=== PATIENT | male | born 1985 | race Caucasian/White ===

== ENCOUNTER 2019-03-21 20:30 | Inpatient (IN) | payer SELFPAY | END 2019-03-24 13:34 | disposition home or self-care (01) | DRG 897 | PROVIDERS: Emergency Provider Emergency Medicine | DX: F15.229 Other stimulant dependence with intoxication, unspecified (principal); F33.0 Major depressive disorder, recurrent, mild; R45.851 Suicidal ideations; Z28.21 Immunization not carried out because of patient refusal; F17.210 Nicotine dependence, cigarettes, uncomplicated ==

== ENCOUNTER 2019-07-25 21:57 | Inpatient (IN) | payer SELFPAY ==
[2019-07-25 22:03] VITALS: BP 115/74; PULSE 118; RESP 18; TEMP 36.7; O2SAT 98; BMI 30.9
--- NOTE | 2019-07-25 22:23 | ED_ITS ---
HPI - Psych General: Chief Complaint: Psychiatric Symptoms Stated Complaint: si/intoxication History of Present Illness: HPI Narrative: Patient arrived via the police due to having suicidal thoughts and hallucinating. Patient is a chronic meth abuser and he did meth last night and has had problems since then. Said he has no reason to live because he can lose his job due to his meth use and if he did not have a job he did not want live. Patient states the night before last he put a bottle of trazodone in his mouth and try to sadia with bleach and cannot hold down spit it out. Has been in the hospital for 4 suicidal thoughts. Has been off his medications for a while. MD complaint: suicidal ideation, feels depressed and altered mental status Onset (ago): day(s) Duration: constant History of same: Yes Relieving factors: none Context: recent drug abuse and not taking psychiatric medications Associated psychiatric symptoms: depression, suicidal ideation, auditory hallucinations and visual hallucinations Associated symptoms: Reports auditory hallucinations, visual hallucinations, depression and suicidal ideation Treatments prior to arrival: other (Please brought him in and he called the police because he was having thoughts of harming himself please did fill out a 96-hour hold) If self harm: admits thoughts of self harm, has plan and has acted on plan Details of plan: He took trazodone and then drink bleach but had to spit it out Review of Systems Const: Denies: fever, chills or body aches Eyes: Denies: change in vision or blurry vision ENMT: Denies: throat pain or nasal congestion Card: Denies: chest pain or shortness of breath on exertion Resp: Denies: shortness of breath, productive cough or non-productive cough GI: Denies: abdominal pain, nausea or vomiting : Denies: difficulty urinating Musc: Denies: extremity pain Skin/Breast: Denies: rash Neuro: Denies: headache Psych: Reports: depression, hopelessness, visual hallucinations, auditory hallucinations and suicidal ideation; Denies: anxiety Thomas/Lymph: Denies: easy bruising PFSH ED PFSH: Social History Smoking and tobacco status: current every day smoker Physical Exam Const: COMMON NORMALS: no apparent distress, average body habitus and oriented x3 HENMT: COMMON NORMALS: normocephalic HEAD & SCALP: normal to inspection and normocephalic FACE & SINUS: normal facial exam Eye: COMMON NORMALS: conjunctivae normal GENERAL EYE: normal appearance of both eyes CONJUNCTIVA: Yes conjunctivae normal Neck/C-Spine: COMMON NORMALS: no JVD Chest: COMMONS NORMALS: inspection of chest normal Resp: COMMON NORMALS: normal respiratory effort and clear to auscultation bilaterally AUSCULTATION: clear to auscultation bilaterally Cardio: COMMON NORMALS: no JVD, regular rate and regular rhythm RATE: regular rate RHYTHM: regular rhythm GI: COMMON NORMALS: normal to inspection, nondistended, normoactive bowel sounds Extremity: COMMON NORMALS: normal to inspection and full ROM Neuro: COMMON NORMALS: oriented x3 Psych: APPEARANCE: Yes disheveled ATTITUDE: Yes paranoid SPEECH: Yes excessive MOOD & AFFECT: Yes elevated mood THOUGHT CONTENT: Yes suicidality MDM - Psych MDM Narrative: Medical decision making narrative: Discussed case with Dr. Andujar and Dr. Whatley decision to admit at 0116. Lab Data: Labs: Lab Results 07/25/19 07/25/19 Range/Units 23:45 23:45 WBC 9.4 (4.0-10.0) 10^3/ uL RBC 4.80 (4.1-5.3) 10^6/u L Hgb 15.0 (11.7-16.6) g/dL Hct 42.8 (42.0-52.0) % MCV 89.2 (80-94) fL MCH 31.3 (28.0-34.0) pg MCHC 35.0 (30.0-36.0) g/dL RDW 12.2 (12.1-15.1) % Plt Count 286 (130-400) 10^3/c mm MPV 9.8 (7.4-10.4) fL Neut % (Auto) 60.2 % Lymph % (Auto) 29.9 % [place] % (Auto) 8.9 % Eos % (Auto) 0.5 % Baso % (Auto) 0.3 % Neut # (Auto) 5.7 (1.8-7.7) 10^3/u L Lymph # (Auto) 2.8 (0.8-4.8) 10^3/u L [place] # (Auto) 0.8 (0.2-0.9) 10^3/u L Eos # (Auto) 0.1 (0.0-0.8) 10^3/u L Baso # (Auto) 0.0 (0.0-0.1) 10^3/u L Nucleated RBC % (a uto) 0 % Nucleated RBCs # 0.0 /100WBC Sodium 140 (136-145) mmol/L Potassium 3.7 (3.5-5.1) mmol/L Chloride 103 (98-107) mmol/L Carbon Dioxide 27 (22-29) mmol/L Anion Gap 13.7 (5-19) BUN 20 (6-20) mg/dL Creatinine 1.5 H (0.7-1.2) mg/dL GFR Calculation 53.6 L (90-130) mL/min Glucose 107 (65-115) mg/dL Calculated Osmolal ity 287 (285-295) mOsm/k g Calcium 9.1 (8.5-10.5) mg/dL Total Bilirubin 0.8 (0.15-1.2) mg/dL AST 27 (0-40) U/L ALT 24 (0-41) U/L Alkaline Phosphata se 101 (40-130) IU/L Total Protein 6.5 L (6.6-8.7) g/dL Albumin 4.3 (3.5-5.2) g/dL Globulin 2.2 (1.3-4.6) g/dL Salicylates < 0.3 L (3-10) mg/dL Acetaminophen < 5.0 L (10-30) ug/mL Ethyl Alcohol < 10 (0-10) mg/dL Discharge Plan Discharge Patient Disposition: Admitted As Inpatient Clinical Impression: Suicidal ideation Condition: Stable Coding Level of Care Code ED Recovery Auditor for Paul Fwd Exam Comprehensive
[2019-07-25] MEDS: LORazepam 2 mg Tablet PO (22:36)
[2019-07-25] MEDS: haloperidol inj 5 mg/mL INJ 1 mL IM (22:36)
[2019-07-26] LABS: Basophils % 0.3 %; Eosinophils # 0.1 10^3/uL (0.0-0.8); Eosinophils % 0.5 %; Hematocrit 42.8 % (42.0-52.0); Lymphocytes # 2.8 10^3/uL (0.8-4.8); Lymphocytes % 29.9 %; Mean Corpuscular Hemoglobin 31.3 pg (28.0-34.0); Mean Corpuscular Volume 89.2 fL (80-94); Mean Platelet Volume 9.8 fL (7.4-10.4); Monocytes # 0.8 10^3/uL (0.2-0.9); Monocytes % 8.9 %; Neutrophils # 5.7 10^3/uL (1.8-7.7); Neutrophils % 60.2 %; Nucleated Red Blood Cells % 0 %; Platelet Count 286 10^3/cmm (130-400); Red Cell Distribution Width 12.2 % (12.1-15.1); White Blood Count 9.4 10^3/uL (4.0-10.0)
[2019-07-26 00:14] LABS: Alanine Aminotransferase 24 U/L (0-41); Albumin Level 4.3 g/dL (3.5-5.2); Alkaline Phosphatase 101 IU/L (40-130); Anion Gap 13.7 (5-19); Aspartate Amino Transferase 27 U/L (0-40); Blood Urea Nitrogen 20 mg/dL (6-20); Calcium 9.1 mg/dL (8.5-10.5); Carbon Dioxide 27 mmol/L (22-29); Chloride 103 mmol/L (98-107); Globulin 2.2 g/dL (1.3-4.6); Glomerular Filtration Rate 53.6 mL/min (90-130); Glucose 107 mg/dL (65-115); Osmolality Calculated 287 mOsm/kg (285-295); Potassium 3.7 mmol/L (3.5-5.1); Sodium 140 mmol/L (136-145); Total Bilirubin 0.8 mg/dL (0.15-1.2); Total Protein 6.5 g/dL (6.6-8.7)
[2019-07-26 00:30] LABS: Acetaminophen < 5.0 ug/mL (10-30); Alcohol Level < 10 mg/dL (0-10); Salicylate < 0.3 mg/dL (3-10)
[2019-07-26 01:33] VITALS: RESP 18
[2019-07-26 01:42] VITALS: BP 120/75; PULSE 94; RESP 20; TEMP 36.9; O2SAT 97
[2019-07-26 06:00] VITALS: BP 121/71; PULSE 85; RESP 20; TEMP 36.8; O2SAT 98
--- NOTE | 2019-07-26 09:55 | P.HP_ITS ---
Providers/Chief Complaint Admitting Physician: Tomi Hoyos MD Chief Complaint: si/intoxication HPI NPU History of Present Illness Jeremiah Power is a 33 year old male The patient had a very rough day today. He was admitted to the unit from the emergency room secondary to suicidal thoughts, aggression, and addiction issues. He was unwilling to engage in an interview at any level, denied wanting anything, and was fairly knocked out, clearly crashing from methamphetamine high. During my brief conversation with him, he denied needing anything other than sleep, which is what he mostly did all of yesterday. I gave him some space but identified for him that we would need to have some kind of effective conversation in the morning. He was functioning fine on the prn medication that had been started. He did reluctantly allow me to review the information from his psychosocial reports from his last hospitalization, excerpts of which are included below. He denied any substantive changes at this time. Per last [facility] eval: History of Present Illness Date of Service: Mar 23, 2019 Chief Complaint: I've been doing a lot of mask. I just need to get cleaned up. HPI: History of present illness:Jeremiah Power is a 33-year-old man with a long history of methamphetamine abuse. He reports that he needs to come in and get clean he reported to the emergency room that he was having thoughts of hanging himself or injecting himself with antifreeze. However on interview in the psychiatric unit he states that that was primarily a complaint to get admitted to the psychiatric unit so that he could clean himself out. He's dated I've been high too long and freaking out and having suicidal thoughts. He has no intent of injuring himself or anyone else. He says this has happened before area and he said that he had been high for several days and had started hearing voices. Otherwise, he reports that things have been going well for him. He denied symptoms of depression. He denied the presence at the time of interview of suicidal or homicidal ideation. He is actively employed. Other than his meth amphetamine intoxication, he reports that he had been doing well. Item Value Date Time Urine Opiates Screen NEGATIVE ng/mL 03/21/192250 Urine Barbiturates Screen NEGATIVE ng/mL 03/21/192250 Urine Phencyclidine Screen NEGATIVE ng/mL 03/21/192250 Urine Amphetamines Screen POSITIVE ng/mL H 03/21/192250 Urine Benzodiazepines Screen NEGATIVE ng/mL 03/21/192250 Urine Cocaine Screen NEGATIVE ng/mL 03/21/192250 Urine Marijuana (THC) Screen NEGATIVE ng/mL 03/21/192250 Ethyl Alcohol Level < 10 mg/dL 03/21/192056 Mental health history: He has 3 prior hospitalizations. First was in 08/08/2017 for 3 days, second was 08/19/2017 for 3 days and again in February 2018 for 3 days. Each time, for methamphetamine. Discharge planning on at least 2 of those sent him to [facility] program. Historically, he has been variably compliant with outpatient treatment. His last visit to behavioral health services was in December 2018 with the following description: Client reports the following symptoms and concerns today: It's getting better. I am just stressed out on bills. I have been leaving them online girls alone. I haven't been sending them money. I haven't been really having any suicidal thoughts.I haven't had to use my safety plan. I have been to tired after work to think about anything. Probably last month I did, around the end of October when bills were due. I ended up burning my leg at work so I was out of work a couple of weeks. I think it was a chemical reaction. I have been at [facility] since May, it doesn't seem that long. I haven't had an relapses, patrick. I got ahold of some air duster. I just did it that once. I haven't been going to any meetings. Social history: Patient dropped out of school in eighth grade. He did get his GED. He is currently on probation for 5 years. Legal history: Legal history begins in 2008 with an arrest for stalking. In 2015 he was charged with second-degree felony assault. 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 He was also charged with possession of illegal substance and car theft. In 2018, immediately prior to his last psychiatric issues, he was charged with possession of illegal substance and counseling mandated by court order. Past medical history: Please see nursing notes in the emergency room chart. Mental Status Exam: Appearance: hygiene is fair; no gross neurological deficits., gait is unremarkable; AIMS=0 Speech: Speech is of normal rate and rhythm and easily understood. Thought processes: Thought processes are abstract. Judgment is not adequate for safety. Associations: intact Psychotic processes: There is no indication of guarding or paranoia. There is no attention to the internal stimuli. Auditory and visual hallucinations are denied. Judgment: Insight is fair. Problem solving skills are adequate for safety. Orientation: The patient is oriented to person, place time and situation. Memory: no deficits noted in immediate, intermediate, or remote spheres. Attention: The patient is alert and interpersonally engaged. Language: Verbalizations are coherent. Fund of knowledge: Fund of knowledge is adequate. Affect/Mood: Affect is irritable with a depressed mood. Denied suicidal ideation Affective range iappropriate. Psychosis: perception unimpaired except through cognitive distortion; reality testing intact. Diagnoses: amphetamine intoxication Amphetamine dependence Assessment: The patient is a fairly well-demonstrated pattern of becoming psychotic after using amphetamines leading to his hospitalization. His symptoms clear after 3 days of sobriety. Meds NPU Home Medications Medication Instructions Recorded Confirmed Last Taken Type Unable to Assess 07/27/19 07/27/19 Unknown History Allergies Allergy/AdvReac Type Severity Reaction Status Date / Time Penicillins Allergy Unknown Verified 07/25/19 22:18 PFS NPU PFSH: Social History Smoking and tobacco status: current every day smoker Mental Status Exam MSE Comments: This is an obese, white male, with adequate dress, limited grooming, and eye contact. No abnormal movements except for significant psychomotor retardation. Uncooperative with exam in no moderate distress. Speech was limited and decreased rate and volume. Mood described as depressed; affect congruent. Thought process, linear. Thought content: patient did not answer questions, for the most part did endorse having suicidality. There were no delusions reported. He did not appear to be attending to internal stimuli. Attention and concentration were impaired. Memory was unreliable but none were formally tested. He is alert and oriented to person and place. Insight and judgment are impaired. Vitals/I&O/Wt Last Vital Signs Temp 98.5 F 07/26/19 21:36 Pulse 88 07/26/19 21:36 Resp 20 H 07/26/19 21:36 BP 125/77 07/26/19 21:36 Pulse Ox 98 07/26/19 21:36 Weight last 48 hrs Weight 81.647 kg Data NPU : 07/25/19 23:45 07/25/19 23:45 A&P Assessment and plan (1) Suicidal ideation: This is a 33 year old, white male, with history of hospitalization in a very similar fashion on /, which ended very abruptly after him essentially not engaging and then asking to leave the next day. We will certainly attempt to engage him and address any mental health or addiction needs, and hopefully assist him in motivation towards improvement. Continue current medication. Will explore medication trials tomorrow. Will continue q 15-minute checks for safety. Will encourage individual and milieu therapy. Will work with social work to encourage sober living services at the highest level of care to which he is willing to commit. Status: Acute (2) Methamphetamine dependence: Status: Acute (3) Depressive disorder: Status: Acute Involuntary Hold Information 96 Hour Hold: 96 Hour Involuntary Admission: No Attestations NPU Medical Necessity Statement*: Inpatient hospitalization is medically necessary and the clinically appropriate intervention at this time. We will monitor medications and make adjustment in addition as indicated. He will be in the hospital for over two midnights. Likely length of stay two to four days. Coding Level of Care Code Acute Inbound Sales Consultant for Paul Small Diagnoses Suicidal ideation R45.851 Methamphetamine dependence F15.20 Depressive disorder F32.9
[2019-07-26 13:33] VITALS: BP 124/74; PULSE 88; RESP 18; TEMP 37; O2SAT 100
[2019-07-26] MEDS: trazodone 50 mg Tablet PO (20:41)
--- NOTE | 2019-07-26 21:35 | PC.NURSE ---
Pt given Prn Trazodone for sleep per pt request.
[2019-07-26 21:36] VITALS: BP 125/77; PULSE 88; RESP 20; TEMP 36.9; O2SAT 98
[2019-07-27 05:58] VITALS: BP 111/74; PULSE 84; RESP 20; TEMP 37.1; O2SAT 96
--- NOTE | 2019-07-27 11:44 | P.PN_ITS ---
Subjective NPU Subjective: Interval history: Jeremiah presents today reporting that he is not sure if he witnessed a crime or not, if he saw somebody get killed and all kinds of other bizarre utterances. He continues to be very guarded in interview and resistant to interactions. It is unclear whether this psychosis is something that is common to him or only when he has been binging on methamphetamine. We will examine that further. We discussed the risks, benefits and alternatives of initiating medication which he said he would consider, but currently struggling with basic reality. Mental Status Exam MSE Comments: This is an overweight, white male, with adequate dress, limited grooming, and eye contact. No abnormal movements except for psychomotor agitation mixed with psychomotor retardation. Uncooperative with exam still, in mild distress at times. Speech was limited but then at times increased rate and volume. Mood described as fine; affect irritable and energetic. Thought process, linear. Thought content: patient did not appear to have any outwardly or inwardly directed aggression. There were no delusions reported but clear paranoid, bizarre delusions noted. He did not appear to be attending to internal stimuli. Attention and concentration were impaired, and memory appeared unreli able, but none were formally tested. Alert and oriented times person and place. Insight and judgment are impaired. Vitals/I&O/Wt Last Vital Signs Temp 97.9 F 07/27/19 21:50 Pulse 82 07/27/19 21:50 Resp 17 07/27/19 21:50 BP 108/76 07/27/19 21:50 Pulse Ox 97 07/27/19 21:50 Data NPU : 07/25/19 23:45 07/25/19 23:45 A&P Additional A&P Information (1) Suicidal ideation: This is a 33 year old, white male, with history of hospitalization in a very similar fashion on /, which ended very abruptly after him essentially not engaging and then asking to leave the next day. We will certainly attempt to engage him and address any mental health or addiction needs, and hopefully assist him in motivation towards improvement. Continue current medication. Will explore medication trials tomorrow. Will continue q 15-minute checks for safety. Will encourage individual and milieu therapy. Will work with social work to encourage sober living services at the highest level of care to which he is willing to commit. (2) Methamphetamine dependence: (3) Depressive disorder: Involuntary Hold Information 96 Hour Hold: 96 Hour Involuntary Admission: No Attestations NPU Medical Necessity Statement*: Inpatient hospitalization is medically necessary and the clinically appropriate intervention at this time. We will monitor medications and make adjustment in addition as indicated. Likely length of stay two to four days. Coding Level of Care Code Acute Fiscal Agent for Paul Small
[2019-07-27 12:43] LABS: Add Urine Microscopic? NO
[2019-07-27 12:48] LABS: Bilirubin Urine Neg (NEGATIVE); Blood Urine Neg (Negative); Glucose Urine UA Norm (Normal); Ketones Urine Negative (Negative); Leukocyte Esterase Urine Negative (Negative); Nitrate Urine Negative (Negative); Protein Urine Neg (Negative); Urine Appearance Clear (CLEAR); Urine Color Yellow (Yellow); Urobilinogen Urine Norm (Negative); pH Urine 6 (5-7)
[2019-07-27 13:29] LABS: Amphetamines Screen Urine Positive (Negative); Barbiturates Screen Urine Negative (Negative); Benzodiazepines Screen Urine Positive (Negative); Cocaine Screen Urine Negative (Negative); Opiate Screen Urine Negative (Negative); PCP Screen Urine Negative (Negative); THC Screen Urine Negative (Negative)
[2019-07-27 14:00] VITALS: BP 117/77; PULSE 88; RESP 20; TEMP 37.2; O2SAT 98
[2019-07-27] MEDS: OLANZapine ODT 5 MG TABLET PO (14:20)
--- NOTE | 2019-07-27 14:20 | PC.NURSE ---
PRN ZYPREXA ZYDIS ZYPREXA ZYDIS 5MG PO PER PATIENT C/O AGITATION/ANXIETY. WILL CONTINUE TO MONITOR FOR MEDICATION EFFECTIVENESS.
--- NOTE | 2019-07-27 15:20 | PC.NURSE ---
PRN ZYPREXA ZYDIS FOLLOW UP MEDICATION EFFECTIVE. NO FURTHER C/O ANXIETY.
[2019-07-27 21:50] VITALS: BP 108/76; PULSE 82; RESP 17; TEMP 36.6; O2SAT 97
[2019-07-28 06:00] VITALS: BP 165/83; PULSE 73; RESP 16; TEMP 36.7; O2SAT 99
[2019-07-28] MEDS: hyDROXYzine 25 mg Capsule 50 MG PO (11:18)
[2019-07-28] MEDS: OLANZapine ODT 5 MG TABLET PO (11:18)
--- NOTE | 2019-07-28 11:18 | PC.NURSE ---
PRN VISTARIL & ZYPREXA ZYDIS VISTARIL 50 MG GIVEN PO PER PT C/O ANXIETY. ZYPREXA ZYDIS 5 MG GIVEN PO PER PT C/O AGITATION. PT UPSET HE HASN'T SEEN THE PHYSICIAN YET TODAY. PT ASSURED THAT HE WOULD BE SEEING PHYSICIAN SHORTLY. PT TOOK MEDS WITHOUT INCIDENT. WILL CONT TO MONITOR.
--- NOTE | 2019-07-28 12:20 | PC.NURSE ---
PRN VISTARIL & ZYPREXA ZYDIS EFFECTIVE. NO FURTHER C/O ANXIETY OR AGITATION CURRENTLY
--- NOTE | 2019-07-28 12:56 | P.PN_ITS ---
Subjective NPU Subjective: Interval history: Jeremiah presents today finally having some sense of being able to be conversant and interactive. He is somewhat resistant to medication still. We discussed the importance of medication and stabilizing his situation. He said he would think about it. Otherwise he reports he is feeling a little better and he is asking about discharge. Mental Status Exam MSE Comments: This is an obese, white male, with adequate dress, grooming, and improved eye contact. No abnormal movements except for improving psychomotor retardation. More cooperative with exam in no acute distress. Speech was decreased rate and volume. Mood described as a little better; affect less odd and subdued. Thought process, more organized. Thought content: patient denied any suicidal or homicidal ideation, there were no delusions reported or noted, patient denied any auditory or visual hallucinations. Attention, concentration, and memory appeared intact but were not formally tested. Alert and oriented times three. Insight and judgment are improving. Vitals/I&O/Wt Last Vital Signs Temp 97.7 F 07/29/19 06:00 Pulse 64 07/29/19 06:00 Resp 17 07/29/19 06:00 BP 124/77 07/29/19 06:00 Pulse Ox 99 07/29/19 06:00 Data NPU : 07/25/19 23:45 07/25/19 23:45 A&P Additional A&P Information (1) Suicidal ideation: This is a 33 year old, white male, with history of hospitalization in a very similar fashion on , which ended very abruptly after him essentially not engaging and then asking to leave the next day. We will certainly attempt to engage him and address any mental health or addiction needs, and hopefully assist him in motivation towards improvement. Continue current medication. Will explore medication trials tomorrow. Will continue q 15-minute checks for safety. Will encourage individual and milieu therapy. Will work with social work to encourage sober living services at the highest level of care to which he is willing to commit. (2) Methamphetamine dependence: (3) Depressive disorder: Involuntary Hold Information 96 Hour Hold: 96 Hour Involuntary Admission: No Attestations NPU Medical Necessity Statement*: Inpatient hospitalization is medically necessary and the clinically appropriate intervention at this time. We will monitor medications and make adjustment in addition as indicated. Likely length of stay two to four days. Coding Level of Care Code Acute Wastewater Treatment Operator for Paul Small
[2019-07-28 13:23] VITALS: BP 123/75; PULSE 91; RESP 20; TEMP 36.7; O2SAT 100
[2019-07-28 21:29] VITALS: BP 149/76; PULSE 72; RESP 16; TEMP 36.7; O2SAT 99
[2019-07-29 06:00] VITALS: BP 124/77; PULSE 64; RESP 17; TEMP 36.5; O2SAT 99
[2019-07-29 14:00] VITALS: BP 114/66; PULSE 65; RESP 18; TEMP 36.8; O2SAT 99
--- NOTE | 2019-07-29 14:15 | PM.NPN ---
Subjective NPU Subjective: Interval history: Jeremiah presents today for the first time being capable of full rationale correspondence. He reported being very frustrated with the fact that he allowed himself to get that way. He reports he has struggled with methamphetamine and psychosis when the methamphetamine is nowhere to be found, and he endorses a desire not to let this happen again because he reports he finally has a good job, and he was just really upset about the situation that he had gotten himself in. We had a fairly long constructive conversation about how he was going to avoid falling prey to his addiction as he was requesting to be essentially discharged right away, and we agreed to get him restarted on his Abilify which has been effective, he agreed to get the injection in the morning and we discussed a plan to ultimately get him connected with meetings which he reports are very effective for him. He reports that he is eating better and sleeping okay. Mental Status Exam MSE Comments: This is an overweight, versus obese, white male, with adequate dress, grooming, and eye contact. No abnormal movements except for improving psychomotor retardation. Cooperative with exam in no acute distress. Speech was more normal rate and volume. Mood described as better; affect congruent. Thought process, organized. Thought content: patient denied any suicidal or homicidal ideation, there were no delusions reported or noted, patient denied any auditory or visual hallucinations. Attention, concentration, and memory appeared intact but were not formally tested. Alert and oriented times three. Insight and judgment are improving. Vitals/I&O/Wt Last Vital Signs Temp 97.7 F 07/29/19 06:00 Pulse 64 07/29/19 06:00 Resp 167 07/29/19 06:00 BP 124/77 07/29/19 06:00 Pulse Ox 99 07/29/19 06:00 Data NPU : 07/25/19 23:45 07/25/19 23:45 A&P Additional A&P Information (1) Suicidal ideation: This is a 33 year old, white male, with history of hospitalization in a very similar fashion on /, which ended very abruptly after him essentially not engaging and then asking to leave the next day. We will certainly attempt to engage him and address any mental health or addiction needs, and hopefully assist him in motivation towards improvement. Continue current medication. Except: *Abilify 10 mg by mouth every morning. Will give Abilify maintain a injection 400 mg IM in the morning prior to discharge. Will continue q 15-minute checks for safety. Will encourage individual and milieu therapy. Will work with social work to encourage sober living services at the highest level of care to which he is willing to commit. (2) Methamphetamine dependence: (3) Depressive disorder: Involuntary Hold Information 96 Hour Hold: 96 Hour Involuntary Admission: No Attestations NPU Medical Necessity Statement*: Inpatient hospitalization is medically necessary and the clinically appropriate intervention at this time. We will monitor medications and make adjustment in addition as indicated. Likely length of stay 1-3 days. Tentative discharge tomorrow. Coding Level of Care Code Acute Filter Plant Supervisor for Paul Small
[2019-07-29] MEDS: ARIPiprazole 10 mg Tablet PO (15:52)
[2019-07-29 19:31] VITALS: BP 128/75; PULSE 60; RESP 19; TEMP 36.6; O2SAT 99
[2019-07-30 06:00] VITALS: BP 120/81; PULSE 69; RESP 16; TEMP 36.3; O2SAT 98
[2019-07-30] MEDS: ARIPiprazole Maintena 400 MG IM (08:06)
[2019-07-30] MEDS: ARIPiprazole 10 mg Tablet PO (08:06)
--- NOTE | 2019-07-30 08:08 | PC.NURSE ---
ANT MAINTENA 400 MG GIVEN IM ORDERED BY PHYSICIAN. PT EDUCATED ON MED GIVEN & PT VERBALIZED UNDERSTANDING. WILL CONT TO MONITOR INJECTION SITE FOR ANY REDNESS, SWELLING, OR IRRITATION LOT [id number] EXP AUGUST 2020
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
[2019-07-30 11:11] VITALS: BP 120/81; PULSE 69; RESP 16; TEMP 36.3; O2SAT 98
== END 2019-07-30 12:00 | disposition home or self-care (01) | DRG 881 ==
LOC: ER 07-26 01:16 → NP 07-26 01:27
PROVIDERS: Emergency Medicine; Admitting Provider Psychiatry & Neurology Psychiatry; Emergency Provider Nurse Practitioner Family; Visit Provider Psychiatry & Neurology Psychiatry
DX: F32.9 Major depressive disorder, single episode, unspecified (principal); R45.851 Suicidal ideations; F15.20 Other stimulant dependence, uncomplicated; F17.210 Nicotine dependence, cigarettes, uncomplicated
CPT/HCPCS: 12345; 80053; 80306; 80307; 81003; 85025; 96372; 99284; J0401; J1630

== ENCOUNTER 2020-01-08 22:27 | Inpatient (IN) | payer SELFPAY ==
--- NOTE | 2020-01-08 22:33 | ECG_ITS ---
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 Measurements Intervals [place] Rate: 86 P: 26 MT: 157 QRS: 55 QRSD: 90 T: 51 QT: 338 QTc: 405 Interpretive Statements SINUS RHYTHM Compared to ECG 03/15/2018 19:52:23 No significant changes Electronically Signed On 01-09-2020 19:58:51 CDT by Lotus Lopez M.D. [email or web address]
[2020-01-08 22:35] VITALS: BP 151/81; PULSE 88; RESP 18; TEMP 36.8; O2SAT 97; BMI 30.7
--- NOTE | 2020-01-08 22:43 | W.ED.GENADLT ---
HPI - General Adult General: Chief complaint: Psychiatric Symptoms Stated complaint: SI Time Seen by Provider: 01/08/20 22:35 Source: patient and EMS Mode of arrival: EMS Limitations: other (Patient not cooperative for some questioning) History of Present Illness: HPI narrative: Jeremiah is a 34-year-old male brought in by EMS with report of suicidal ideation. EMS states the patient admitted to them he was suicidal tonight. The patient confirms this to me. He denies having a specific plan. He states he needs to get back on medications to help him. When asked why he feels this way the patient states I am overworked and underpaid . Patient is not very forthcoming with much information as he seems to be agitated at this time. Review of Systems General: Reports: ROS unobtainable due to mental status PFSH ED PFSH: Medical History Depressive disorder Methamphetamine dependence Social History Smoking and tobacco status: current every day smoker Physical Exam Const: COMMON NORMALS: no acute distress, patient oriented x3, no limitations and alert GENERAL APPEARANCE: cooperative HENMT: COMMON NORMALS: normocephalic, atraumatic, external ears normal, EAC's normal and Normal external nose present HEAD & SCALP: normal to inspection, normocephalic and atraumatic FACE & SINUS: normal facial exam and face symmetric NOSE: Normal external nose present and Normal nares present EXTERNAL EAR: Yes external ears normal EXTERNAL AUDITORY CANAL: EAC's normal MOUTH: Normal oral and palatal mucosa present, lip normal and tongue normal Eye: COMMON NORMALS: Equal, round and reactive pupils present and conjunctivae normal GENERAL EYE: appearance normal, both eyes and all related structures ALIGNMENT: Yes alignment normal PERIORBITAL: periorbital findings normal EYELID: eyelids normal CONJUNCTIVA: Yes conjunctivae normal SCLERA: sclerae normal PUPIL: Yes Equal, round and reactive pupils present Neck/C-Spine: COMMON NORMALS: full ROM, no lymphadenopathy, supple, no meningeal signs and no JVD GENERAL: Yes normal visual inspection and Yes trachea midline Chest: COMMONS NORMALS: normal inspection of the chest and normal palpation of entire chest wall Resp: COMMON NORMALS: normal respiratory effort, No retractions, No use of accessory muscles and clear to auscultation bilaterally EFFORT & INSPECTION: Yes able to speak in complete sentences and Yes symmetric chest movement AUSCULTATION: clear to auscultation bilaterally, no crackles, no rales, no rhonchi and no wheezes Cardio: COMMON NORMALS: no JVD, regular rate, regular rhythm, S1 normal heart sound present and S2 normal heart sound present RATE: regular rate RHYTHM: regular rhythm HEART SOUNDS: S1 normal heart sound present, S2 normal heart sound present, no click, no gallops, no murmurs and no rubs GI: COMMON NORMALS: Soft to palpation and No hepatosplenomegaly present PALPATION: Yes Soft to palpation, No Tenderness to palpation present (GI), No Guarding due to palpation present (GI), No Rigid due to palpation, Yes No hepatosplenomegaly present, No Hernia present, No Palpable mass present and No Pulsatile mass present : COMMON NORMALS: Yes no CVA tenderness BLADDER/KIDNEY EXAM: Yes no CVA tenderness Back/Pelvis: COMMON NORMALS: no CVA tenderness, thoracic and lumbar spine normal to inspection, no thoracic nor lumbar tenderness and thoraco-lumbar ROM normal Extremity: COMMON NORMALS: normal to inspection, full ROM, capillary refill normal, no joint enlargement, no clubbing, cyanosis or edema and no calf tenderness Neuro: COMMON NORMALS: patient oriented x3, CN's II-XII intact bilaterally, moves all extremities, no focal motor deficits and no sensory deficits noted SENSORIUM/ORIENTATION: Yes alert MENINGEAL SIGNS: Yes no meningeal signs SPEECH: speech normal Psych: APPEARANCE: Yes disheveled ATTITUDE: Yes agitated ACTIVITY/MOTOR BEHAVIOR: Yes Avoids eye contact (attititude/behavior) SPEECH: Yes rapid MOOD & AFFECT: Yes Flat affect present THOUGHT CONTENT: Yes Suicidality present ATTENTION/CONCENTRATION: Yes attention grossly intact MEMORY/COGNITION: Yes memory grossly intact and Yes cognition grossly intact INSIGHT: Poor insight present (Psych) JUDGEMENT: Limited judgement present (Psych) Skin: COMMON NORMALS: no rashes or lesions noted, turgor normal, no jaundice, no petechiae and no mottling GENERAL SKIN EXAM: no rashes or lesions noted and turgor normal Course ED course: 2319 -patient is now stating to the nurse that he drank antifreeze 3 days ago. He denies any other ingestions. When asked by me he stated that he was working on a car when antifreeze splashed up and got in his face and a few drops got in his mouth. I will expand my my work-up with laboratory analysis as the patient is very vague and I want to be certain there is no other risks of overdose. Vital Signs: Vital signs: Vital Signs Temperature 98.2 F 01/08/20 22:35 Pulse Rate 88 01/08/20 22:35 Respiratory Rate 18 01/08/20 22:35 Blood Pressure 151/81 01/08/20 22:35 Pulse Oximetry 97 01/08/20 22:35 MDM - General Adult MDM Narrative: Medical decision making narrative: 0122 -I have reviewed the case in full with poison control who state that the amount of antifreeze the patient got in his mouth should not be threatening at all. Especially 3 days after the episode he should be much more sick if he did ingest a significant amount. Patient does not have a significant anion gap, he shows no sign of renal failure. The patient at this time is resting comfortably. We will go ahead and admit him to the neuropsychiatric unit. I had previously reviewed the case with Dr. Hoyos and he agreed to accept the patient. Lab Data: Attestation: I reviewed the patient's lab results. Labs: Lab Results 01/08/20 01/08/20 01/08/20 Range/Units 00:10 22:42 22:42 WBC 8.2 (4.0-10.0) 10^3/ uL RBC 5.20 (4.1-5.3) 10^6/u L Hgb 16.2 (11.7-16.6) g/dL Hct 46.6 (42.0-52.0) % MCV 89.6 (80-94) fL MCH 31.2 (28.0-34.0) pg MCHC 34.8 (30.0-36.0) g/dL RDW 11.8 L (12.1-15.1) % Plt Count 328 (130-400) 10^3/c mm MPV 9.8 (7.4-10.4) fL Neut % (Auto) 48.0 % Lymph % (Auto) 45.9 % [place] % (Auto) 3.9 % Eos % (Auto) 1.6 % Baso % (Auto) 0.4 % Neut # (Auto) 3.95 (1.8-7.7) 10^3/u L Lymph # (Auto) 3.8 (0.8-4.8) 10^3/u L [place] # (Auto) 0.3 (0.2-0.9) 10^3/u L Eos # (Auto) 0.1 (0.0-0.8) 10^3/u L Baso # (Auto) 0.0 (0.0-0.1) 10^3/u L Nucleated RBC % (a uto) 0 % Nucleated RBCs # 0.0 /100WBC PT (12.1-14.9) SECO NDS INR (0.8-1.2) APTT (23.9-36.7) SECO NDS Specimen Type Arterial Sample Site Radial, right ABG pH 7.38 (7.35-7.45) ABG pCO2 40.7 (35-45) mmHg ABG pO2 83.4 (80.0-100.0) mmH g ABG HCO3 23.9 (22-26) mmol/L ABG O2 Saturation 97.3 ABG Base Excess -1.2 (-2.0-2.0) mmol/ L Too Test Pos A-a O2 Gradient 1.9 L (5-10) mmHg Hematocrit 46.3 (42-52) % Hgb O2 Saturation 91.5 L (95-100) % Carboxyhemoglobin 5.0 (0.4-20.1) %THgb Methemoglobin 1.0 (0.4-1.5) % Total Hemoglobin 15.1 (14-18) g/dL Sodium 142.0 140 (131-143) mmol/L Potassium 3.6 3.5 (3.5-5.0) mmol/L Glucose 93.0 107 (70-115) mg/dL Ionized Calcium 1.1 (1.1-1.4) mmol/L O2 Delivery Device None Field Manager ID [email or web address] Chloride 103 (98-107) mmol/L Carbon Dioxide 21 L (22-29) mmol/L Anion Gap 19.5 H (5-19) BUN 9 (6-20) mg/dL Creatinine 1.4 H (0.7-1.2) mg/dL GFR Calculation 57.7 L (90-130) mL/min Calculated Osmolal ity 289 (285-295) mOsm/k g Calcium 8.8 (8.5-10.5) mg/dL Magnesium (1.7-2.3) mg/dL Total Bilirubin 0.3 (0.15-1.2) mg/dL AST 31 (0-40) U/L ALT 63 H (0-41) U/L Alkaline Phosphata se 127 (40-130) IU/L Creatine Kinase (39-308) U/L Total Protein 6.7 (6.6-8.7) g/dL Albumin 4.3 (3.5-5.2) g/dL Globulin 2.4 (1.3-4.6) g/dL Lipase (13-60) U/L TSH 5.55 H (0.27-4.20) uIU/ mL Salicylates < 0.3 L (3-10) mg/dL Acetaminophen < 5.0 L (10-30) ug/mL Ethyl Alcohol 109 H (0-10) mg/dL Serum Ketones (Negative) 01/08/20 01/08/20 Range/Units 22:42 22:42 WBC (4.0-10.0) 10^3/ uL RBC (4.1-5.3) 10^6/u L Hgb (11.7-16.6) g/dL Hct (42.0-52.0) % MCV (80-94) fL MCH (28.0-34.0) pg MCHC (30.0-36.0) g/dL RDW (12.1-15.1) % Plt Count (130-400) 10^3/c mm MPV (7.4-10.4) fL Neut % (Auto) % Lymph % (Auto) % [place] % (Auto) % Eos % (Auto) % Baso % (Auto) % Neut # (Auto) (1.8-7.7) 10^3/u L Lymph # (Auto) (0.8-4.8) 10^3/u L [place] # (Auto) (0.2-0.9) 10^3/u L Eos # (Auto) (0.0-0.8) 10^3/u L Baso # (Auto) (0.0-0.1) 10^3/u L Nucleated RBC % (a uto) % Nucleated RBCs # /100WBC PT 12.60 (12.1-14.9) SECO NDS INR 0.92 (0.8-1.2) APTT 27.7 (23.9-36.7) SECO NDS Specimen Type Sample Site ABG pH (7.35-7.45) ABG pCO2 (35-45) mmHg ABG pO2 (80.0-100.0) mmH g ABG HCO3 (22-26) mmol/L ABG O2 Saturation ABG Base Excess (-2.0-2.0) mmol/ L Too Test A-a O2 Gradient (5-10) mmHg Hematocrit (42-52) % Hgb O2 Saturation (95-100) % Carboxyhemoglobin (0.4-20.1) %THgb Methemoglobin (0.4-1.5) % Total Hemoglobin (14-18) g/dL Sodium (131-143) mmol/L Potassium (3.5-5.0) mmol/L Glucose (70-115) mg/dL Ionized Calcium (1.1-1.4) mmol/L O2 Delivery Device Field Manager ID Chloride (98-107) mmol/L Carbon Dioxide (22-29) mmol/L Anion Gap (5-19) BUN (6-20) mg/dL Creatinine (0.7-1.2) mg/dL GFR Calculation (90-130) mL/min Calculated Osmolal ity (285-295) mOsm/k g Calcium (8.5-10.5) mg/dL Magnesium 2.1 (1.7-2.3) mg/dL Total Bilirubin (0.15-1.2) mg/dL AST (0-40) U/L ALT (0-41) U/L Alkaline Phosphata se (40-130) IU/L Creatine Kinase 162 (39-308) U/L Total Protein (6.6-8.7) g/dL Albumin (3.5-5.2) g/dL Globulin (1.3-4.6) g/dL Lipase 29 (13-60) U/L TSH (0.27-4.20) uIU/ mL Salicylates (3-10) mg/dL Acetaminophen (10-30) ug/mL Ethyl Alcohol (0-10) mg/dL Serum Ketones Negative (Negative) EKG Data^: EKG 1: Attestation: I personally reviewed and interpreted this EKG as follows: EKG interpretation date: 01/08/20 EKG interpretation time: 23:25 Interpretation: Normal sinus rhythm at 86 beats a minute, normal axis, no blocks, normal intervals. No acute ST-T wave changes. Discharge Plan Discharge Patient Disposition: Admitted As Inpatient Admit Provider: Tomi Hoyos Clinical Impression: Suicidal ideation Condition: Stable Coding Level of Care Code ED Coating Operator for Chg Fwd Exam Comprehensive
--- NOTE | 2020-01-08 22:47 | PC.NURSE ---
Patient stated he sees and hears things. Patient would only answer that he sees and hears a lot of things. Patient mumbles things. When asked what he is saying patient just shakes his head. Sometimes it takes asking questions more than once to get him to answer.
[2020-01-08 22:58] LABS: Basophils % 0.4 %; Eosinophils # 0.1 10^3/uL (0.0-0.8); Eosinophils % 1.6 %; Hematocrit 46.6 % (42.0-52.0); Hemoglobin 16.2 g/dL (11.7-16.6); Lymphocytes # 3.8 10^3/uL (0.8-4.8); Lymphocytes % 45.9 %; Mean Corpuscular HGB Conc 34.8 g/dL (30.0-36.0); Mean Corpuscular Hemoglobin 31.2 pg (28.0-34.0); Mean Corpuscular Volume 89.6 fL (80-94); Mean Platelet Volume 9.8 fL (7.4-10.4); Monocytes # 0.3 10^3/uL (0.2-0.9); Monocytes % 3.9 %; Neutrophils # 3.95 10^3/uL (1.8-7.7); Nucleated Red Blood Cells % 0 %; Platelet Count 328 10^3/cmm (130-400); Red Cell Distribution Width 11.8 % (12.1-15.1); White Blood Count 8.2 10^3/uL (4.0-10.0)
--- NOTE | 2020-01-08 23:19 | PC.NURSE ---
Patient stated he drank antifreeze 3 days ago. Physician notified.
[2020-01-08 23:24] LABS: Alanine Aminotransferase 63 U/L (0-41); Albumin Level 4.3 g/dL (3.5-5.2); Alcohol Level 109 mg/dL (0-10); Alkaline Phosphatase 127 IU/L (40-130); Aspartate Amino Transferase 31 U/L (0-40); Blood Urea Nitrogen 9 mg/dL (6-20); Calcium 8.8 mg/dL (8.5-10.5); Carbon Dioxide 21 mmol/L (22-29); Chloride 103 mmol/L (98-107); Globulin 2.4 g/dL (1.3-4.6); Glomerular Filtration Rate 57.7 mL/min (90-130); Glucose 107 mg/dL (65-115); Osmolality Calculated 289 mOsm/kg (285-295); Sodium 140 mmol/L (136-145); Thyroid Stimulating Hormone 5.55 uIU/mL (0.27-4.20); Total Bilirubin 0.3 mg/dL (0.15-1.2); Total Protein 6.7 g/dL (6.6-8.7)
[2020-01-08 23:28] LABS: Acetaminophen < 5.0 ug/mL (10-30); Salicylate < 0.3 mg/dL (3-10)
[2020-01-08 23:29] LABS: Anion Gap 19.5 (5-19); Potassium 3.5 mmol/L (3.5-5.1)
--- NOTE | 2020-01-08 23:31 | PC.NURSE ---
One on one sitter with patient.
[2020-01-08] MEDS: sodium chloride 0.9% 1,000 ML 100 ML IV (23:42)
[2020-01-09 00:08] LABS: Ketone (Acetest) Serum Negative (Negative)
--- NOTE | 2020-01-09 00:13 | PC.NURSE ---
Patient sleeping. One on One sitter at bedside.
[2020-01-09 00:15] LABS: Creatine Phosphokinase 162 U/L (39-308); Lipase 29 U/L (13-60); Magnesium 2.1 mg/dL (1.7-2.3)
[2020-01-09 00:20] LABS: INR 0.92 (0.8-1.2); Partial Thromboplastin Time 27.7 SECONDS (23.9-36.7)
[2020-01-09 00:22] LABS: ABG PCO2 40.7 mmHg (35-45); ABG PH Result 7.38 (7.35-7.45); Alveolar-Arterial Oxygen Gradi 1.9 mmHg (5-10); Arterial Blood Gas Hematocrit 46.3 % (42-52); Base Excess ABG -1.2 mmol/L (-2.0-2.0); Blood Gas Allen Test Pos; Blood Gas Sample Site Radial, right; Blood Gas Sample Type Arterial; HCO3 ABG 23.9 mmol/L (22-26); HGB O2 Sat 91.5 % (95-100); Ionized Calcium Level - ABG 1.1 mmol/L (1.1-1.4); Oxygen Saturation ABG 97.3; PO2 ABG 83.4 mmHg (80.0-100.0); Potassium Level - ABG 3.6 mmol/L (3.5-5.0); Total Hemoglobin 15.1 g/dL (14-18)
[2020-01-09 00:42] LABS: Lactic Sepsis W/Reflex 1.9 mmol/L (0.5-2.2)
[2020-01-09 00:43] LABS: Lithium 0.1 mmol/L (0.6-1.2); Phenytoin Dilantin 0.8 ug/mL (10-20); Valproic Acid Level 2.8 ug/mL (50-100)
[2020-01-09 01:46] VITALS: BP 116/78; PULSE 86; RESP 16; TEMP 36.7; O2SAT 98
[2020-01-09 02:00] VITALS: BP 130/80; PULSE 90; RESP 16; TEMP 36.6; O2SAT 96
--- NOTE | 2020-01-09 02:42 | PC.NURSE ---
Skin assessment revealed no injuries or wounds.
[2020-01-09 04:38] LABS: Amphetamines Screen Urine Negative (Negative); Barbiturates Screen Urine Negative (Negative); Benzodiazepines Screen Urine Negative (Negative); Cocaine Screen Urine Negative (Negative); Opiate Screen Urine Negative (Negative); PCP Screen Urine Negative (Negative); THC Screen Urine Negative (Negative)
[2020-01-09 06:00] VITALS: BP 125/82; PULSE 82; RESP 17; TEMP 36.4; O2SAT 97
[2020-01-09 14:00] VITALS: BP 134/78; PULSE 68; RESP 18; TEMP 37.1; O2SAT 98
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
--- NOTE | 2020-01-09 15:12 | PC.RESP ---
SMOKING CESSATION INFORMATION SENT TO PATIENT.
--- NOTE | 2020-01-09 17:24 | PM.NHP ---
Providers/Chief Complaint Admitting Physician: Tomi Hoyos MD Chief Complaint: SI HPI NPU History of Present Illness Jeremiah Power is a 34 year old male who presented to the department with the following report: Chief complaint: Psychiatric Symptoms Stated complaint: SI Time Seen by Provider: 01/08/20 22:35 Source: patient and EMS Mode of arrival: EMS Limitations: other (Patient not cooperative for some questioning) History of Present Illness: HPI narrative: Jeremiah is a 34-year-old male brought in by EMS with report of suicidal ideation. EMS states the patient admitted to them he was suicidal tonight. The patient confirms this to me. He denies having a specific plan. He states he needs to get back on medications to help him. When asked why he feels this way the patient states I am overworked and underpaid . Patient is not very forthcoming with much information as he seems to be agitated at this time. He was admitted to the neuropsychiatric unit for definitive treatment of those issues. This patient is known to this editorial writer through his last hospitalization in June of this year. Given his presentation and aggression an excerpt of that note was included given he denies substantive changes and his limited willingness as a historian. Attempted to get historical data which angered Jeremiah significantly. Any question about past information including hospitalizations treatment at [facility] or other providers were met with a demand that we do our homework and get information that is clearly in the records. He was only willing to really share that he was struggling the night before and started feeling bad thoughts. He endorsed that he came to the hospital to avoid poor choices and that now he feels better and is ready to leave. He endorsed a need to get back to work immediately. And when this editorial writer added additional questions after that statement he yelled out laid in his bed and pulled the covers over him and turned away and said he was done with the interview. Moments later a loud noise was heard and he apparently punched the wall and screamed out. We went to his room and he spent 10+ minutes in the bathroom reporting he was trying to urinate. Eventually came out of bathroom aggressively thrusting his hands at us as we had advised we needed to evaluate that he was fine from his aggression. He once again laid in bed and put the blankets over his head. Psychiatric history: He has had 9 hospitalizations this marking his 10th at this facility and had outpatient services going back to 2008. Substance abuse history: He has a significant history of addiction issues with his last hospitalization being defined by methamphetamine issues. Per his last [facility] inpatient eval on 07/26/2019: History of Present Illness Jeremiah Power is a 33 year old male The patient had a very rough day today. He was admitted to the unit from the emergency room secondary to suicidal thoughts, aggression, and addiction issues. He was unwilling to engage in an interview at any level, denied wanting anything, and was fairly knocked out, clearly crashing from methamphetamine high. During my brief conversation with him, he denied needing anything other than sleep, which is what he mostly did all of yesterday. I gave him some space but identified for him that we would need to have some kind of effective conversation in the morning. He was functioning fine on the prn medication that had been started. He did reluctantly allow me to review the information from his psychosocial reports from his last hospitalization, excerpts of which are included below. He denied any substantive changes at this time. Per last [facility] eval: History of Present Illness Date of Service: Mar 23, 2019 Chief Complaint: I've been doing a lot of mask. I just need to get cleaned up. HPI: History of present illness:Jeremiah Power is a 33-year-old man with a long history of methamphetamine abuse. He reports that he needs to come in and get clean he reported to the emergency room that he was having thoughts of hanging himself or injecting himself with antifreeze. However on interview in the psychiatric unit he states that that was primarily a complaint to get admitted to the psychiatric unit so that he could clean himself out. He's dated I've been high too long and freaking out and having suicidal thoughts. He has no intent of injuring himself or anyone else. He says this has happened before area and he said that he had been high for several days and had started hearing voices. Otherwise, he reports that things have been going well for him. He denied symptoms of depression. He denied the presence at the time of interview of suicidal or homicidal ideation. He is actively employed. Other than his methamphetamine intoxication, he reports that he had been doing well. Item Value Date Time Urine Opiates Screen NEGATIVE ng/mL 12/23/19 2251 Urine Barbiturates Screen NEGATIVE ng/mL 03/21/192250 Urine Phencyclidine Screen NEGATIVE ng/mL 03/21/192250 Urine Amphetamines Screen POSITIVE ng/mL H 03/21/192250 Urine Benzodiazepines Screen NEGATIVE ng/mL 03/21/192250 Urine Cocaine Screen NEGATIVE ng/mL 03/21/192250 Urine Marijuana (THC) Screen NEGATIVE ng/mL 03/21/192250 Ethyl Alcohol Level < 10 mg/dL 03/21/192056 Mental health history: He has 3 prior hospitalizations. First was in 08/08/2017 for 3 days, second was 08/19/2017 for 3 days and again in February 2018 for 3 days. Each time, for methamphetamine. Discharge planning on at least 2 of those sent him to [facility] for rehabilitation program. Historically, he has been variably compliant with outpatient treatment. His last visit to behavioral health services was in December 2018 with the following description: Client reports the following symptoms and concerns today: It's getting better. I am just stressed out on bills. I have been leaving them online girls alone. I haven't been sending them money. I haven't been really having any suicidal thoughts.I haven't had to use my safety plan. I have been to tired after work to think about anything. Probably last month I did, around the end of October when bills were due. I ended up burning my leg at work so I was out of work a couple of weeks. I think it was a chemical reaction. I have been at [employer] since May, it doesn't seem that long. I haven't had an relapses, patrick. I got ahold of some air duster. I just did it that once. I haven't been going to any meetings. Social history: Patient dropped out of school in eighth grade. He did get his GED. He is currently on probation for 5 years. Legal history: Legal history begins in 2008 with an arrest for stalking. In 2015 he was charged with second-degree felony assault. 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 He was also charged with possession of illegal substance and car theft. In 2017, immediately prior to his last psychiatric issues, he was charged with possession of illegal substance and counseling mandated by court order. Past medical history: Please see nursing notes in the emergency room chart. Mental Status Exam: Appearance: hygiene is fair; no gross neurological deficits., gait is unremarkable; AIMS=0 Speech: Speech is of normal rate and rhythm and easily understood. Thought processes: Thought processes are abstract. Judgment is not adequate for safety. Associations: intact Psychotic processes: There is no indication of guarding or paranoia. There is no attention to the internal stimuli. Auditory and visual hallucinations are denied. Judgment: Insight is fair. Problem solving skills are adequate for safety. Orientation: The patient is oriented to person, place time and situation. Memory: no deficits noted in immediate, intermediate, or remote spheres. Attention: The patient is alert and interpersonally engaged. Language: Verbalizations are coherent. Fund of knowledge: Fund of knowledge is adequate. Affect/Mood: Affect is irritable with a depressed mood. Denied suicidal ideation Affective range iappropriate. Psychosis: perception unimpaired except through cognitive distortion; reality testing intact. Diagnoses: amphetamine intoxication Amphetamine dependence Assessment: The patient is a fairly well-demonstrated pattern of becoming psychotic after using amphetamines leading to his hospitalization. His symptoms clear after 3 days of sobriety. Meds NPU Home Medications Medication Instructions Recorded Confirmed Last Taken Type No Known Home Medications 01/09/20 01/09/20 Unknown History Allergies Allergy/AdvReac Type Severity Reaction Status Date / Time Penicillins Allergy Unknown Verified 10/06/19 17:50 [facility] NPU PFS: Medical History Depressive disorder Methamphetamine dependence Social History Smoking and tobacco status: current every day smoker Mental Status Exam MSE Comments: This is an obese white male with limited dress, grooming and eye contact. No abnormal movements except for psychomotor agitation. Uncooperative with exam and moderate to extreme distress. Speech was limited and increased rate and volume. Mood described as fine affect agitated. Thought process organized. Thought content: Patient denied suicidal or homicidal ideation but with fairly aggressive. There are no delusions reported or noted, he denied any auditory visualizations. Attention and concentration were limited and memory was unreliable but none were formally tested. He is alert and oriented x3. Insight and judgment are impaired, impulse control is impaired. Vitals/I&O/Wt Last Vital Signs Temp 97.6 F 10/12/20 19:53 Pulse 78 01/09/20 19:53 Resp 16 01/09/20 19:53 BP 127/80 01/09/20 19:53 Pulse Ox 99 01/09/20 19:53 Weight last 48 hrs Weight 83.915 kg Data NPU : 01/08/20 22:42 01/08/20 22:42 A&P Assessment and plan (1) Methamphetamine abuse in remission: Status: Acute (2) Suicidal ideation: Status: Acute (3) Impulse control disorder, unspecified: Status: Acute (4) Borderline intellectual functioning: Status: Acute Additional A&P Information This is a 34-year-old white male who presents having endorsed suicidal thinking in the emergency room who now presents irritable, angry and having limited participation and the assessment demanding to be discharged while on a 96-hour hold. 1. Continue current medication. We will continue to offer to restart previous effective medications or start a trial of new medications. 2. Continue every 15 minute checks for safety. 3. Encourage individual, group and milieu therapy. 4. We will encourage sober living treatment at the highest level care indicated and to which he was willing to commit. 5. Will evaluate for credible lethality in keeping with his 96-hour hold. Involuntary Hold Information 96 Hour Hold: 96 Hour Involuntary Admission: Yes 96 Hour Hold Ending Date: 01/13/20 96 Hour Hold Ending Time: 23:59 Attestations NPU Medical Necessity Statement*: Inpatient hospitalization is medically necessary and the clinically appropriate intervention at this time. We will monitor/add medications and make changes as indicated. He will be in the hospital for over 2 midnights. Likely length of stay 2 to 4 days. We will continue to evaluate for safety for discharge given the 96-hour hold. Coding Level of Care Code Acute Regulated Program Manager for Paul Fwd Diagnoses Methamphetamine abuse in remission F15.11 Suicidal ideation R45.851 Impulse control disorder, unspecified F63.9 Borderline intellectual functioning R41.83
[2020-01-09 19:53] VITALS: BP 127/80; PULSE 78; RESP 16; TEMP 36.4; O2SAT 99
[2020-01-10 06:00] VITALS: BP 145/109; PULSE 72; RESP 16; TEMP 36.4; O2SAT 99
[2020-01-10] MEDS: benzocaine 20% 7 gm 1 APPLIC MUCOUS MEM ×2 (11:59→13:14)
[2020-01-10] MEDS: nicotine 21 mg Patch 1 PATCH TRANSDERMA (12:02)
[2020-01-10] MEDS: acetaminophen 325 mg Tablet 650 MG PO (13:41)
[2020-01-10 14:05] VITALS: BP 120/79; PULSE 88; RESP 18; TEMP 36.3; O2SAT 98
[2020-01-10] MEDS: ARIPiprazole 30 mg Tablet 15 MG PO (14:58)
--- NOTE | 2020-01-10 17:32 | PM.NPN ---
Subjective NPU Subjective: Interval history: Jeremiah presented today about his angry and aggressive is yesterday. More or less demanding discharge as soon as possible. He was able to have a spirited discussion with discussed his likelihood for discharge sooner would be predicated on him taking medication likely but more importantly demonstrating a decorum that would suggest he would be safe on an outpatient basis. He then was willing to discussed the risk benefits and alternatives of a couple medications for my schizophrenia, and he understood and agreed to proceed with a trial of Abilify. He reports that he is eating okay and sleeping all right as well. Mental Status Exam MSE Comments: This is an obese white male with limited dress, grooming and eye contact. No abnormal movements except for psychomotor agitation. Uncooperative with exam and moderate distress. Speech was limited and increased rate and volume. Mood described as angry affect agitated. Thought process organized. Thought content: Patient denied suicidal or homicidal ideation but was fairly aggressive. There are no delusions reported or noted, he denied any auditory or visual hallucinations. Attention and concentration were limited and memory was unreliable but none were formally tested. He is alert and oriented x3. Insight and judgment are impaired, impulse control is impaired. Vitals/I&O/Wt Last Vital Signs Temp 98.1 F 01/10/20 20:07 Pulse 95 01/10/20 20:07 Resp 17 01/10/20 20:07 BP 121/86 01/10/20 20:07 Pulse Ox 98 01/10/20 20:07 Data NPU : 01/08/20 22:42 01/08/20 22:42 A&P Additional A&P Information (1) Methamphetamine abuse in remission: (2) Suicidal ideation: (3) Impulse control disorder, unspecified: (4) Borderline intellectual functioning: This is a 34-year-old white male who presents having endorsed suicidal thinking in the emergency room who now presents irritable, angry and having limited participation and the assessment demanding to be discharged while on a 96-hour hold. 1. Continue current medication. Except: Start Abilify 15 mg p.o. every morning. 2. Continue every 15 minute checks for safety. 3. Encourage individual, group and milieu therapy. 4. We will encourage sober living treatment at the highest level care indicated and to which he was willing to commit. 5. Will evaluate for credible lethality in keeping with his 96-hour hold. Involuntary Hold Information 96 Hour Hold: 96 Hour Involuntary Admission: Yes 96 Hour Hold Ending Date: 01/13/20 96 Hour Hold Ending Time: 23:59 Attestations NPU Medical Necessity Statement*: Inpatient hospitalization is medically necessary and the clinically appropriate intervention at this time. We will monitor/add medications and make changes as indicated. Likely length of stay 2 to 4 days. We will continue to evaluate for safety for discharge given the 96-hour hold. Coding Level of Care Code Acute Electronics Processing Supervisor for Paul Small
[2020-01-10 20:07] VITALS: BP 121/86; PULSE 95; RESP 17; TEMP 36.7; O2SAT 98
[2020-01-10] MEDS: hyDROXYzine 25 mg Capsule 50 MG PO (20:40)
[2020-01-10] MEDS: trazodone 50 mg Tablet PO (20:40)
[2020-01-11 06:00] VITALS: BP 123/85; PULSE 76; RESP 16; TEMP 36.6; O2SAT 95
[2020-01-11] MEDS: ARIPiprazole 30 mg Tablet 15 MG PO (07:53)
[2020-01-11] MEDS: hyDROXYzine 25 mg Capsule 50 MG PO ×2 (10:47→22:10)
--- NOTE | 2020-01-11 10:48 | PC.NURSE ---
PRN VISTARIL 50 MG GIVEN PO PER PT C/O STATED ANXIETY. PT UPSET THAT HE IS AT THE HOSPITAL HERE & IS MISSING OUT ON A WORKING OPPORTUNITY TO MAKE MONEY. WILL CONT TO MONITOR
--- NOTE | 2020-01-11 13:21 | NPU.GN ---
Jeremiah was quiet during group but appeared to be listening to what was being talked about.
[2020-01-11 14:00] VITALS: BP 120/82; PULSE 89; RESP 18; TEMP 36.5; O2SAT 98
[2020-01-11] MEDS: nicotine 21 mg Patch 1 PATCH TRANSDERMA (14:44)
--- NOTE | 2020-01-11 15:54 | P.PN_ITS ---
Subjective NPU Subjective: Interval history: Jeremiah presented today reporting that he is feeling a lot better and appears less activated. He reports that he knows the medication has been helpful and actually apologized for his aggressive and irritable behavior. He reports that he is glad the medication was restarted and is wanting to continue and be connected with resources the continue the wi dication. We discussed the possibility of long-acting injectable which she has not decided on at this point. We discussed a tentative discharge for tomorrow. Mental Status Exam MSE Comments: This is an obese white male with limited dress, grooming and eye contact. No abnormal movements. More cooperative with exam in no acute distress. Speech was more spontaneous and more normal rate and volume. Mood described as better affect calmer. Thought process organized. Thought content: Patient denied suicidal or homicidal ideation. There are no delusions reported or noted, he denied any auditory or visual hallucinations. Attention and concentration were intact and memory was more reliable but none were formally tested. He is alert and oriented x3. Insight and judgment are improving, impulse control is impaired, but improving. Vitals/I&O/Wt Last Vital Signs Temp 97.9 F 01/11/20 22:00 Pulse 73 01/11/20 22:00 Resp 18 01/11/20 22:00 BP 123/85 01/11/20 22:00 Pulse Ox 97 01/11/20 22:00 Data NPU : 01/08/20 22:42 01/08/20 22:42 A&P Additional A&P Information (1) Methamphetamine abuse in remission: (2) Suicidal ideation: (3) Impulse control disorder, unspecified: (4) Borderline intellectual functioning: This is a 34-year-old white male who presents having endorsed suicidal thinking in the emergency room who now presents irritable, angry and having limited participation and the assessment demanding to be discharged while on a 96-hour hold. 1. Continue current medication. 2. Continue every 15 minute checks for safety. 3. Encourage individual, group and milieu therapy. 4. We will encourage sober living treatment at the highest level care indicated and to which he was willing to commit. 5. Likely discharge tomorrow. Involuntary Hold Information 96 Hour Hold: 96 Hour Involuntary Admission: Yes 96 Hour Hold Ending Date: 01/13/20 96 Hour Hold Ending Time: 23:59 Attestations NPU Medical Necessity Statement*: Inpatient hospitalization is medically necessary and the clinically appropriate intervention at this time. We will monitor/add medications and make changes as indicated. Likely length of stay 1-3 days. Coding Level of Care Code Acute Mechanical Project Manager for Paul Small
[2020-01-11 22:00] VITALS: BP 123/85; PULSE 73; RESP 18; TEMP 36.6; O2SAT 97
[2020-01-11] MEDS: trazodone 50 mg Tablet PO (22:10)
[2020-01-12 06:00] VITALS: BP 132/89; PULSE 95; RESP 17; TEMP 36.5; O2SAT 97
[2020-01-12] MEDS: ARIPiprazole 30 mg Tablet 15 MG PO (08:27)
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
[2020-01-12 12:33] VITALS: BP 132/89; PULSE 95; RESP 17; TEMP 36.5; O2SAT 97
[2020-01-12 22:00] VITALS: BP 132/89; PULSE 95; RESP 17; TEMP 36.5; O2SAT 97
== END 2020-01-12 12:52 | disposition home or self-care (01) | DRG 897 ==
LOC: ER 22:46 → NP 23:27
PROVIDERS: Emergency Medicine; Admitting Provider Psychiatry & Neurology Psychiatry; Visit Provider Psychiatry & Neurology Psychiatry
DX: F15.229 Other stimulant dependence with intoxication, unspecified (principal); R45.851 Suicidal ideations; F63.9 Impulse disorder, unspecified; R41.83 Borderline intellectual functioning; F17.210 Nicotine dependence, cigarettes, uncomplicated
CPT/HCPCS: 12345; 36415; 36600; 80051; 80053; 80156; 80164; 80178; 80185; 80306; 80307; 82009; 82550; 82810; 83605; 83690; 83735; 83986; 84443; 85025; 85610; 85730; 93005; 99284; J7030

== ENCOUNTER 2020-01-21 22:33 | Emergency (ER) | payer SELFPAY ==
[2020-01-21 22:51] VITALS: BP 130/79; PULSE 56; RESP 18; TEMP 36.6; O2SAT 99; BMI 30.1
--- NOTE | 2020-01-21 23:08 | XRR_ITS ---
PROCEDURE INFORMATION: Exam: XR Left Knee Exam date and time: 01/21/2020 11:08 PM Age: 34 years old Clinical indication: Injury or trauma; Fall; Blunt trauma; Knee; Left; Additional info: Left knee pain TECHNIQUE: Imaging protocol: XR Left knee. Views: 3 views. COMPARISON: No relevant prior studies available. FINDINGS: Bones/joints: Normal. Soft tissues: Normal. XR/XR knee LT 3V* [id number] IMPRESSION: Negative for fracture or dislocation.
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
[2020-01-21] MEDS: ibuprofen 800 mg tablet PO (23:44)
[2020-01-21 23:47] VITALS: BP 137/81; PULSE 70; RESP 18; O2SAT 98
--- NOTE | 2020-01-21 23:49 | PC.NURSE ---
patient refused crutches
== END 2020-01-21 23:53 | disposition home or self-care (01) ==
PROVIDERS: Emergency Provider Nurse Practitioner Family
DX: M25.562 Pain in left knee (principal); F17.210 Nicotine dependence, cigarettes, uncomplicated
CPT/HCPCS: 12345; 29530; 73562; 99281; 99283

== ENCOUNTER 2020-02-24 20:55 | Inpatient (IN) | payer SELFPAY ==
[2020-02-24 20:56] VITALS: BP 127/85; PULSE 96; RESP 18; TEMP 36.7; O2SAT 99; BMI 22.9
[2020-02-24 21:14] LABS: Basophils % 0.3 %; Eosinophils # 0.1 10^3/uL (0.0-0.8); Eosinophils % 0.8 %; Hematocrit 51.6 % (42.0-52.0); Hemoglobin 17.1 g/dL (11.7-16.6); Lymphocytes # 3.2 10^3/uL (0.8-4.8); Mean Corpuscular HGB Conc 33.1 g/dL (30.0-36.0); Mean Corpuscular Volume 93.5 fL (80-94); Mean Platelet Volume 9.5 fL (7.4-10.4); Monocytes # 0.6 10^3/uL (0.2-0.9); Monocytes % 4.6 %; Neutrophils # 9.35 10^3/uL (1.8-7.7); Neutrophils % 69.9 %; Nucleated Red Blood Cells % 0 %; Platelet Count 305 10^3/cmm (130-400); Red Blood Count 5.52 10^6/uL (4.1-5.3); Red Cell Distribution Width 12.3 % (12.1-15.1); White Blood Count 13.4 10^3/uL (4.0-10.0)
[2020-02-24 21:25] LABS: Amphetamines Screen Urine Negative (Negative); Barbiturates Screen Urine Negative (Negative); Benzodiazepines Screen Urine Negative (Negative); Cocaine Screen Urine Negative (Negative); Opiate Screen Urine Negative (Negative); PCP Screen Urine Negative (Negative); THC Screen Urine Negative (Negative)
[2020-02-24 21:38] LABS: Alanine Aminotransferase 82 U/L (0-41); Albumin Level 4.8 g/dL (3.5-5.2); Alkaline Phosphatase 102 IU/L (40-130); Anion Gap 13.8 (5-19); Aspartate Amino Transferase 35 U/L (0-40); Blood Urea Nitrogen 14 mg/dL (6-20); Calcium 8.9 mg/dL (8.5-10.5); Carbon Dioxide 28 mmol/L (22-29); Chloride 106 mmol/L (98-107); Globulin 2.4 g/dL (1.3-4.6); Glomerular Filtration Rate 76.2 mL/min (90-130); Glucose 115 mg/dL (65-115); Osmolality Calculated 297 mOsm/kg (285-295); Potassium 4.8 mmol/L (3.5-5.1); Salicylate 0.4 mg/dL (3-10); Sodium 143 mmol/L (136-145); Total Bilirubin 0.5 mg/dL (0.15-1.2); Total Protein 7.2 g/dL (6.6-8.7)
[2020-02-24 21:52] LABS: Acetaminophen < 5.0 ug/mL (10-30); Alcohol Level 10 mg/dL (0-10)
[2020-02-24 22:08] VITALS: BP 137/85; PULSE 119; RESP 18; TEMP 36.4; O2SAT 97
--- NOTE | 2020-02-24 22:25 | PC.NURSE ---
1:1 sitter at bedside
--- NOTE | 2020-02-24 22:29 | ED_ITS ---
HPI - Psych General: Chief Complaint: Psychiatric Symptoms Stated Complaint: si Time Seen by Provider: 02/24/20 21:06 Source: patient Mode of arrival: EMS Limitations: no limitations History of Present Illness: HPI Narrative: 34 year old male who presents to the ED with suicidal ideation. He said his mother kicked him out of her house because she saw him sniffing on aerosol duster. He states that after that he tried to overdose on the same in a suicide attempt. He is here because he would like some help. complaint: suicidal ideation and feels depressed Onset (ago): hour(s) (5) Duration: constant and getting worse History of same: Yes Relieving factors: none Exacerbating factors: none Context: recent drug abuse and significant life stressor Associated psychiatric symptoms: depression and suicidal ideation Associated symptoms: Reports depression and suicidal ideation; Deny auditory hallucinations, visual hallucinations, delusions, homicidal ideation or racing thoughts Treatments prior to arrival: none If self harm: admits thoughts of self harm, has plan and has acted on plan Details of plan: He plans to overdose on aerosol duster Review of Systems General: Reports: 10 or more systems reviewed and unremarkable except in HPI and below Const: Denies: fever(s), chills or body aches Eyes: Denies: change in vision or blurry vision ENMT: Denies: throat pain, enlarged tonsils, odynophagia, hoarseness, mouth pain or swelling of lips/tongue Card: Denies: palpitations, irregular heart rhythm, edema or swelling of feet/ankles Resp: Denies: dyspnea, productive cough or non-productive cough GI: Denies: abdominal pain, nausea or vomiting : Denies: flank pain, dysuria, urinary frequency, urinary urgency or urinary hesitancy Musc: Denies: neck pain, back pain or extremity swelling Skin/Breast: Denies: rash, pruritus or erythema Neuro: Denies: headache(s), numbness in extremities or weakness in extremities Psych: Reports: depression and suicidal ideation; Denies: visual hallucinations, auditory hallucinations or homicidal ideation Endo: Denies: polyuria, polydipsia or tired all the time PFS ED PFSH: Medical History (Updated 02/24/20 @ 22:54 by Reynaldo Allen MD, [facility] [place]) Depressive disorder Methamphetamine dependence Social History (Reviewed 02/24/20 @ 22:53 by Reynaldo Allen MD, [facility] [place]) Smoking and tobacco status: current every day smoker Physical Exam Const: COMMON NORMALS: no acute distress, average body habitus, patient oriented x3, no limitations, healthy appearing, alert and well nourished HENMT: COMMON NORMALS: normocephalic, atraumatic and moist oral mucous membranes HEAD & SCALP: normocephalic and atraumatic Eye: COMMON NORMALS: Equal, round and reactive pupils present, EOMs intact bilaterally, conjunctivae normal and no scleral icterus CONJUNCTIVA: Yes conjunctivae normal PUPIL: Yes Equal, round and reactive pupils present Neck/C-Spine: COMMON NORMALS: no meningeal signs and no JVD Resp: COMMON NORMALS: normal respiratory effort, No retractions, No use of accessory muscles, clear to auscultation bilaterally and percussion normal AUSCULTATION: clear to auscultation bilaterally PERCUSSION: percussion normal Cardio: COMMON NORMALS: no JVD, regular rate, regular rhythm, S1 normal heart sound present, S2 normal heart sound present, No gallops present (Cardio), No clicks present (Cardio), No murmurs present (Cardio), No rub (Cardio) and Peripheral pulses 2+ throughout RATE: regular rate RHYTHM: regular rhythm HEART SOUNDS: S1 normal heart sound present and S2 normal heart sound present PERIPHERAL PULSES: Peripheral pulses 2+ throughout GI: COMMON NORMALS: Normal to inspection, nondistended, normoactive bowel sounds present, Soft to palpation, non-tender, No hepatosplenomegaly present, no masses and no bruits PALPATION: Yes Soft to palpation and Yes No hepatosplenomegaly present Extremity: COMMON NORMALS: normal to inspection, full ROM, capillary refill normal, no calf tenderness and no pedal edema Neuro: COMMON NORMALS: patient oriented x3 SENSORIUM/ORIENTATION: Yes alert MENINGEAL SIGNS: Yes no meningeal signs Psych: THOUGHT CONTENT: No delusions Skin: COMMON NORMALS: no rashes or lesions noted, no wounds, turgor normal, no jaundice, no petechiae and no mottling GENERAL SKIN EXAM: no rashes or lesions noted and turgor normal MDM - Psych MDM Narrative: Medical decision making narrative: 34-year-old male who presents to the emergency department with suicidal ideation. He is medically cleared and admitted to the neuropsychiatric unit for further evaluation and management. Lab Data: Labs: Lab Results 02/24/20 02/24/20 02/24/20 Range/Units 21:09 21:09 21:09 WBC 13.4 H (4.0-10.0) 10^3/ uL RBC 5.52 H (4.1-5.3) 10^6/u L Hgb 17.1 H (11.7-16.6) g/dL Hct 51.6 (42.0-52.0) % MCV 93.5 (80-94) fL MCH 31.0 (28.0-34.0) pg MCHC 33.1 (30.0-36.0) g/dL RDW 12.3 (12.1-15.1) % Plt Count 305 (130-400) 10^3/c mm MPV 9.5 (7.4-10.4) fL Neut % (Auto) 69.9 % Lymph % (Auto) 24.0 % [place] % (Auto) 4.6 % Eos % (Auto) 0.8 % Baso % (Auto) 0.3 % Neut # (Auto) 9.35 H (1.8-7.7) 10^3/u L Lymph # (Auto) 3.2 (0.8-4.8) 10^3/u L [place] # (Auto) 0.6 (0.2-0.9) 10^3/u L Eos # (Auto) 0.1 (0.0-0.8) 10^3/u L Baso # (Auto) 0.0 (0.0-0.1) 10^3/u L Nucleated RBC % (a uto) 0 % Nucleated RBCs # 0.0 /100WBC Sodium 143 (136-145) mmol/L Potassium 4.8 (3.5-5.1) mmol/L Chloride 106 (98-107) mmol/L Carbon Dioxide 28 (22-29) mmol/L Anion Gap 13.8 (5-19) BUN 14 (6-20) mg/dL Creatinine 1.1 (0.7-1.2) mg/dL GFR Calculation 76.2 L (90-130) mL/min Glucose 115 (65-115) mg/dL Calculated Osmolal ity 297 H (285-295) mOsm/k g Calcium 8.9 (8.5-10.5) mg/dL Total Bilirubin 0.5 (0.15-1.2) mg/dL AST 35 (0-40) U/L ALT 82 H (0-41) U/L Alkaline Phosphata se 102 (40-130) IU/L Total Protein 7.2 (6.6-8.7) g/dL Albumin 4.8 (3.5-5.2) g/dL Globulin 2.4 (1.3-4.6) g/dL Salicylates 0.4 L (3-10) mg/dL Urine Opiates Scre en Negative (Negative) ng/mL Acetaminophen < 5.0 L (10-30) ug/mL Ur Barbiturates Sc reen Negative (Negative) ng/mL Ur Phencyclidine S crn Negative (Negative) ng/mL Ur Amphetamines Sc reen Negative (Negative) ng/mL U Benzodiazepines Scrn Negative (Negative) ng/mL Urine Cocaine Scre en Negative (Negative) ng/mL U Marijuana (THC) Screen Negative (Negative) ng/mL Ethyl Alcohol 10 (0-10) mg/dL Discharge Plan Discharge Patient Disposition: Admitted As Inpatient Admit Provider: Tomi Hoyos Clinical Impression: Suicidal ideation Condition: Stable Coding Level of Care Code ED Developmental Services Worker for Paul Small
[2020-02-24 22:35] VITALS: BP 150/81; PULSE 107; RESP 16; TEMP 36.7; O2SAT 98
[2020-02-24] MEDS: hyDROXYzine 25 mg Capsule 50 MG PO (23:30)
[2020-02-24] MEDS: trazodone 50 mg Tablet PO (23:31)
[2020-02-25 06:00] VITALS: BP 126/78; PULSE 89; RESP 18; TEMP 37.1; O2SAT 97
[2020-02-25] MEDS: ARIPiprazole 30 mg Tablet 15 MG PO (08:49)
--- NOTE | 2020-02-25 08:56 | P.HP_ITS ---
Providers/Chief Complaint Admitting Physician: Tomi Hoyos MD Chief Complaint: si HPI NPU History of Present Illness Jeremiah Power is a 34 year old male who presented to the emergency room on a voluntary basis reporting suicidal ideation. The patient is not considered a reliable source of information. However he does tell a story where on the day of admission, he lost his job. He became despondent. He started hacking aerosols. It was discovered by his mother. He was kicked out of the house. He started having suicidal thoughts. He decided to come to the emergency room. When asked how we can help, he stated I want to go to rehab. He then became resistant to any further interview. To his credit, his urine drug screen was negative for amphetamines for the first time. Laboratory Tests 02/24/20 02/24/20 21:09 21:09 Urine Opiates Screen Negative Ur Barbiturates Screen Negative Ur Amphetamines Screen Negative U Benzodiazepines Scrn Negative Urine Cocaine Screen Negative U Marijuana (THC) Screen Negative Ethyl Alcohol 10 Emergency room physician note:HPI Narrative: 34 year old male who presents to the ED with suicidal ideation. He said his mother kicked him out of her house because she saw him sniffing on aerosol duster. He states that after that he tried to overdose on the same in a suicide attempt. He is here because he would like some help. Mental health history: He has 5 prior hospitalizations. First was in 08/08/2017 for 3 days, second was 08/19/2017 for 3 days and again in February 2018 for 3 days. Each time, for methamphetamine. Discharge planning on at least 2 of those sent him to [facility] for rehabilitation program. HE was again admitted on 07/26/2019 for five days after methamphetamine caused him to be psychotic. HE was again admitted on 01/08/2020 for 4 days with suicidal ideation under the influence of amphetamines. On the last two admissions, he responded to a combination of Abilify and abstinence. It should be noted that both of those admission were subsequent to his substance use that was initiated after a psychosocial stressor. HE has been non-compliant with outpatient care and he is evasive about whether he has been taking his medication. Review of Systems Narrative: Patient refused to participate in review of systems. Meds NPU Home Medications Medication Instructions Recorded Confirmed Last Taken Type aripiprazole [Abilify] 15 mg PO DAILY 30 Days #30 tab 01/12/20 02/24/20 02/23/20 Rx ibuprofen [IBU] 800 mg PO TID PRN #30 tab 01/21/20 02/24/20 Unknown Rx Allergies Allergy/AdvReac Type Severity Reaction Status Date / Time Penicillins Allergy Unknown Verified 10/06/19 17:50 PFSH NPU PFSH: Medical History (Updated 02/25/20 @ 09:03 by Kris Oliver MD) Depressive disorder Methamphetamine dependence Social History Smoking and tobacco status: current every day smoker Mental Status Exam MSE Comments: Mental Status Exam: Patient is a fatigued man appearing approximately his stated age. He gives no eye contact. He is aware of environmental stimuli but does not respond significantly. Appearance: hygiene is poor; no gross neurological deficits., gait is unremarkable; AIMS=0 Speech: Speech is of normal rate and rhythm and easily understood. He responds only short phrases. He provides only information that he feels is necessary and Ziska questions that are asked otherwise. Thought processes: Thought processes are concrete. Judgment is not adequate for safety. Psychotic processes: There is no indication of guarding or paranoia. There is no attention to the internal stimuli. Presence of hallucinations was not reported Judgment: Insight is fair. Problem solving skills are adequate for safety. Orientation: The patient is oriented to person, place time and situation. Memory: Patient refused assessment of memory Attention: The patient is alert and marginally interpersonally engaged. Language: Verbalizations are coherent. Fund of knowledge: Fund of knowledge is poor Affect/Mood: Affect is consistent with a depressed mood. pt denies suicidal ideation Affective range is constricted Psychosis: Patient would not participate in assessment for psychosis. Vitals/I&O/Wt Last Vital Signs Temp 98.7 F 02/25/20 06:00 Pulse 89 02/25/20 06:00 Resp 18 02/25/20 06:00 BP 126/78 02/25/20 06:00 Pulse Ox 97 02/25/20 06:00 Weight last 48 hrs Weight 62.596 kg Data NPU : 02/24/20 21:09 02/24/20 21:09 A&P Assessment and plan (1) Inhalant abuse with intoxication: Status: Acute (2) Adjustment disorder with depressed mood: Status: Acute (3) Suicidal ideation: Status: Acute (4) Borderline intellectual functioning: Status: Acute (5) Methamphetamine abuse in remission: Status: Acute Additional A&P Information Due to the psychiatric conditions and treatment listed in the Assessment and Plan - the patient requires continued hospitalization. Will provide a safe and therapeutic environment for patient.. Will continue inpatient treatment to allow for medication adjustment and monitoring. Will continue q15 min safety checks. He was last being treated with Abilify 15 mg daily and has responded to this in the past. It will be restarted. Monitor patient's mood, sleep, appetite, and behavior closely. Encourage patient to participate in individual and group therapeutic sessions on the [place]. Estimated length of stay 5 days The expected benefits and potential side effects of patient's psychiatric medications were discussed with the patient. The patient understands and consents to treatment. CRITERIA FOR DISCHARGE: stable on medications and no longer an imminent threat to self or others Involuntary Hold Information 96 Hour Hold: 96 Hour Involuntary Admission: No Attestations NPU Medical Necessity Statement*: Patient will remain in the hospital another 3-5 nights until his inhalant intoxication resolves and his candidacy for rehabilitation is assessed. Coding Level of Care Code Acute Accounting Systems Manager for Paul Small Diagnoses Inhalant abuse with intoxication F18.129 Adjustment disorder with depressed mood F43.21 Suicidal ideation R45.851 Borderline intellectual functioning R41.83 Methamphetamine abuse in remission F15.11
[2020-02-25 14:00] VITALS: BP 136/76; PULSE 95; RESP 18; TEMP 37; O2SAT 96
[2020-02-25] MEDS: hyDROXYzine 25 mg Capsule 50 MG PO (20:21)
[2020-02-25] MEDS: trazodone 50 mg Tablet PO (20:21)
[2020-02-25 22:00] VITALS: BP 132/89; PULSE 101; RESP 18; TEMP 36.8; O2SAT 97
[2020-02-26 06:00] VITALS: BP 160/82; PULSE 83; RESP 16; TEMP 37.4; O2SAT 95
[2020-02-26] MEDS: ARIPiprazole 30 mg Tablet 15 MG PO (08:17)
[2020-02-26 13:28] VITALS: BP 117/72; PULSE 96; RESP 18; TEMP 36.9
--- NOTE | 2020-02-26 18:00 | PM.NPN ---
Subjective NPU Subjective: Interval history: Jeremiah presents today reporting that since the last time I saw him his worst nightmare came to pass and that he lost everything. He was really trying hard to maintain his work and everything else and had avoided considering rehab. He reports that in the interim he did go to rehab and he reports that he is lost everything. Vehicle, residence, job and was very tearful and identifying as the patient has hospitalizations. He endorsed a desire to get into rehab and get stabilization so that he can regain all the things that his addiction has cost to him. Mental Status Exam MSE Comments: This is a well-nourished, well-developed white male with limited dress, grooming and eye contact. No abnormal movements except for psychomotor agitation. Cooperative with exam in mild to moderate distress. Speech was increased rate and normal volume. Mood described as depressed and anxious affect congruent. Thought process organized. Thought content: Patient denied suicidal or homicidal ideation but is worried what he would do if he did get help. There are no delusions reported or noted, he denied any auditory or visual hallucinations. Attention and concentration were intact and memory appeared reliable but none were formally tested. He is alert and oriented x3. Insight and judgment are fair, impulse control is impaired. Vitals/I&O/Wt Last Vital Signs Temp 97.6 F 02/26/20 19:42 Pulse 72 02/26/20 19:42 Resp 16 02/26/20 19:42 BP 139/105 02/26/20 19:42 Pulse Ox 92 02/26/20 19:42 Weight last 48 hrs Weight 68.946 kg Data NPU : 02/24/20 21:09 02/24/20 21:09 A&P Assessment and plan (1) Adjustment disorder with depressed mood: Status: Acute (2) Inhalant abuse with intoxication: Status: Acute (3) Suicidal ideation: Status: Acute (4) Schizophrenia: Status: Acute (5) Borderline intellectual functioning: Status: Acute (6) Impulse control disorder, unspecified: Status: Acute (7) Methamphetamine abuse in remission: Status: Acute Additional A&P Information This is a 34-year-old white male who presented to the hospital with recent relapse and reporting desire to resume his medication and get a referral to an inpatient rehab. 1. Continue current medication. 2. Continue every 15 minute checks for safety. 3. Encourage individual, group and milieu therapy. 4. Assist in connecting to an inpatient rehab. Involuntary Hold Information 96 Hour Hold: 96 Hour Involuntary Admission: No Attestations NPU Medical Necessity Statement*: Inpatient hospitalization is medically necessary and the clinically appropriate intervention at this time. We will monitor/add medications and make changes as indicated. Likely length of stay 2 to 4 days. Coding Level of Care Code Acute Radiological Metallurgist for Paul Fwd Diagnoses Adjustment disorder with depressed mood F43.21 Inhalant abuse with intoxication F18.129 Suicidal ideation R45.851 Schizophrenia F20.9 Borderline intellectual functioning R41.83 Impulse control disorder, unspecified F63.9 Methamphetamine abuse in remission F15.11
[2020-02-26 19:42] VITALS: BP 139/105; PULSE 72; RESP 16; TEMP 36.4; O2SAT 92
[2020-02-26] MEDS: hyDROXYzine 25 mg Capsule 50 MG PO (19:54)
[2020-02-26] MEDS: trazodone 50 mg Tablet PO (19:55)
[2020-02-27 06:00] VITALS: BP 117/79; PULSE 78; RESP 15; TEMP 36.8; O2SAT 98
[2020-02-27] MEDS: ARIPiprazole 30 mg Tablet 15 MG PO (07:50)
--- NOTE | 2020-02-27 11:08 | P.PN_ITS ---
Subjective NPU Subjective: Interval history: Jeremiah presents today reporting that the medication is going fine and that he is starting to sleep better. He continues to be quite emotional as we discussed the impact of this latest run on drugs. He continues to laments about all that he is lost and wondering if he has any chance of regaining it and getting back on track. He is working with the [facility] team on a long-term rehab through [facility] mission/scientologist. They are filling out the paperwork and holding for an interview as early as today. Mental Status Exam MSE Comments: This is a well-nourished, well-developed white male with limited dress, grooming and eye contact. No abnormal movements except for psychomotor agitation. Cooperative with exam in mild to moderate distress. Speech was increased rate and normal volume. Mood described as depressed and anxious, affect congruent and occasionally tearful. Thought process organized. Thought content: Patient denied suicidal or homicidal ideation but is worried what he would do if he did not get help. There are no delusions reported or noted, he denied any auditory or visual hallucinations. Attention and concentration were intact and memory appeared reliable but none were formally tested. He is alert and oriented x3. Insight and judgment are fair, impulse control is impaired. Vitals/I&O/Wt Last Vital Signs Temp 97.6 F 02/27/20 20:00 Pulse 88 02/27/20 20:00 Resp 15 02/27/20 20:00 BP 123/85 02/27/20 20:00 Pulse Ox 97 02/27/20 20:00 Data NPU : 02/24/20 21:09 02/24/20 21:09 A&P Additional A&P Information (1) Adjustment disorder with depressed mood: (2) Inhalant abuse with intoxication: (3) Suicidal ideation: (4) Schizophrenia: (5) Borderline intellectual functioning: (6) Impulse control disorder, unspecified: (7) Methamphetamine abuse in remission: This is a 34-year-old white male who presented to the hospital with recent relapse and reporting desire to resume his medication and get a referral to an inpatient rehab. 1. Continue current medication. 2. Continue every 15 minute checks for safety. 3. Encourage individual, group and milieu therapy. 4. Overweight interview for placement and long-term rehab. Involuntary Hold Information 96 Hour Hold: 96 Hour Involuntary Admission: No Attestations NPU Medical Necessity Statement*: Inpatient hospitalization is medically necessary and the clinically appropriate intervention at this time. We will monitor/add medications and make changes as indicated. Likely length of stay 2 to 4 days. Coding Level of Care Code Acute Machine Room Engineer for Paul Small
[2020-02-27 12:38] VITALS: BP 133/84; PULSE 82; RESP 18; TEMP 37.1; O2SAT 98
[2020-02-27] MEDS: nicotine 2 mg Gum BUCCAL (15:52)
--- NOTE | 2020-02-27 16:08 | PC.RESP ---
Smoking Cessation information sent to patient.
[2020-02-27 20:00] VITALS: BP 123/85; PULSE 88; RESP 15; TEMP 36.4; O2SAT 97
[2020-02-27] MEDS: trazodone 50 mg Tablet PO (20:00)
[2020-02-27] MEDS: hyDROXYzine 25 mg Capsule 50 MG PO (20:00)
[2020-02-28 06:00] VITALS: BP 117/82; PULSE 83; RESP 17; TEMP 36.6; O2SAT 97
[2020-02-28] MEDS: ARIPiprazole 30 mg Tablet 15 MG PO (07:46)
[2020-02-28] MEDS: nicotine 21 mg Patch 1 PATCH TRANSDERMA (07:46)
--- NOTE | 2020-02-28 13:29 | PM.NPN ---
Subjective NPU Subjective: Interval history: Gael presents today reporting that things are going fairly well from a standpoint of acclimating to his medications. He is anxious about being connected to a program and is willing to try what ever gives him a long-term opportunity to manage his addiction and get his overall mental health stabilized. He continues to work with the treatment team to connect with facilities that would consider him for such a program. He reports he is eating okay and sleeping better. Mental Status Exam MSE Comments: This is a well-nourished, well-developed white male with limited dress, grooming and eye contact. No abnormal movements except for mild psychomotor agitation. Cooperative with exam in mild distress. Speech was more normal rate and volume. Mood described as a little better, affect congruent and a little less tearful. Thought process organized. Thought content: Patient denied suicidal or homicidal ideation. There are no delusions reported or noted, he denied any auditory or visual hallucinations. Attention and concentration were intact and memory appeared reliable but none were formally tested. He is alert and oriented x3. Insight and judgment are fair, impulse control is impaired. Vitals/I&O/Wt Last Vital Signs Temp 98.4 F 02/28/20 20:15 Pulse 74 02/28/20 20:15 Resp 18 02/28/20 20:15 BP 113/76 02/28/20 20:15 Pulse Ox 96 02/28/20 20:15 Data NPU : 02/24/20 21:09 02/24/20 21:09 A&P Additional A&P Information (1) Adjustment disorder with depressed mood: (2) Inhalant abuse with intoxication: (3) Suicidal ideation: (4) Schizophrenia: (5) Borderline intellectual functioning: (6) Impulse control disorder, unspecified: (7) Methamphetamine abuse in remission: This is a 34-year-old white male who presented to the hospital with recent relapse and reporting desire to resume his medication and get a referral to an inpatient rehab. 1. Continue current medication. 2. Continue every 15 minute checks for safety. 3. Encourage individual, group and milieu therapy. 4. Overweight interview for placement and long-term rehab. Involuntary Hold Information 96 Hour Hold: 96 Hour Involuntary Admission: No Attestations NPU Medical Necessity Statement*: Inpatient hospitalization is medically necessary and the clinically appropriate intervention at this time. We will monitor/add medications and make changes as indicated. Likely length of stay 1-3 days. Coding Level of Care Code Acute Automatic Embroidery Machine Tender for Paul Small
[2020-02-28 14:00] VITALS: BP 125/73; PULSE 80; RESP 18; TEMP 36.6; O2SAT 98
--- NOTE | 2020-02-28 14:42 | PC.NURSE ---
INFLUENZA VACCINE 1 SINGLE DOSE 0.5 ML GIVEN IM IN RIGHT DELTOID. PT EDUCATED ON MED GIVEN & VERBALIZED UNDERSTANDING. WILL CONT TO MONITOR INJECTION SITE FOR ANY REDNESS, SWELLING, OR IRRITATION. LOT [id number] EXP 09/26/2020
[2020-02-28] MEDS: hyDROXYzine 25 mg Capsule 50 MG PO (19:54)
[2020-02-28] MEDS: trazodone 50 mg Tablet PO (19:54)
[2020-02-28 20:15] VITALS: BP 113/76; PULSE 74; RESP 18; TEMP 36.9; O2SAT 96
[2020-02-29 06:00] VITALS: BP 108/72; PULSE 83; RESP 18; TEMP 36.5; O2SAT 97
[2020-02-29] MEDS: ARIPiprazole 30 mg Tablet 15 MG PO (07:33)
--- NOTE | 2020-02-29 11:36 | PM.NDC ---
Diagnoses at Discharge Discharge Diagnosis (1) Adjustment disorder with depressed mood: Status: Acute (2) Inhalant abuse with intoxication: Status: Acute (3) Suicidal ideation: Status: Resolved (4) Schizophrenia: Status: Acute (5) Borderline intellectual functioning: Status: Acute (6) Impulse control disorder, unspecified: Status: Acute (7) Methamphetamine abuse in remission: Status: Acute Reason for Visit Reason for Visit: si Brief History: History of Present Illness Jeremiah Power is a 34 year old male who presented to the emergency room on a voluntary basis reporting suicidal ideation. The patient is not considered a reliable source of information. However he does tell a story where on the day of admission, he lost his job. He became despondent. He started hacking aerosols. It was discovered by his mother. He was kicked out of the house. He started having suicidal thoughts. He decided to come to the emergency room. When asked how we can help, he stated I want to go to rehab. He then became resistant to any further interview. To his credit, his urine drug screen was negative for amphetamines for the first time. Laboratory Tests 02/24/20 02/24/20 21:09 21:09 Urine Opiates Screen Negative Ur Barbiturates Screen Negative Ur Amphetamines Screen Negative U Benzodiazepines Scrn Negative Urine Cocaine Screen Negative U Marijuana (THC) Screen Negative Ethyl Alcohol 10 Emergency room physician note:HPI Narrative: 34 year old male who presents to the ED with suicidal ideation. He said his mother kicked him out of her house because she saw him sniffing on aerosol duster. He states that after that he tried to overdose on the same in a suicide attempt. He is here because he would like some help. Mental health history: He has 5 prior hospitalizations. First was in 08/08/2017 for 3 days, second was 08/19/2017 for 3 days and again in February 2018 for 3 days. Each time, for methamphetamine. Discharge planning on at least 2 of those sent him to [facility]. HE was again admitted on 07/26/2019 for five days after methamphetamine caused him to be psychotic. HE was again admitted on 01/08/2020 for 4 days with suicidal ideation under the influence of amphetamines. On the last two admissions, he responded to a combination of Abilify and abstinence. It should be noted that both of those admission were subsequent to his substance use that was initiated after a psychosocial stressor. HE has been non-compliant with outpatient care and he is evasive about whether he has been taking his medication. Hospital Course Hospital Course Jeremiah presented to the emergency department with the following report: Chief Complaint: Psychiatric Symptoms Stated Complaint: si Time Seen by Provider: 02/24/20 21:06 Source: patient Mode of arrival: EMS Limitations: no limitations History of Present Illness: HPI Narrative: 34 year old male who presents to the ED with suicidal ideation. He said his mother kicked him out of her house because she saw him sniffing on aerosol duster. He states that after that he tried to overdose on the same in a suicide attempt. He is here because he would like some help. MD complaint: suicidal ideation and feels depressed Onset (ago): hour(s) (5) Duration: constant and getting worse History of same: Yes Relieving factors: none Exacerbating factors: none Context: recent drug abuse and significant life stressor Associated psychiatric symptoms: depression and suicidal ideation Associated symptoms: Reports depression and suicidal ideation; Deny auditory hallucinations, visual hallucinations, delusions, homicidal ideation or racing thoughts Treatments prior to arrival: none If self harm: admits thoughts of self harm, has plan and has acted on plan Details of plan: He plans to overdose on aerosol duster. He was admitted to the neuropsychiatric unit for definitive treatment of those issues. He been off of his medications of the Abilify 15 mg p.o. every morning was started. He slowly acclimated to the individual, group and milieu therapies provided. Over the time of his stay he showed significant improvement and was able to contract for safety. During the hospitalization he had routine laboratory studies which were within normal limits except for few outliers. Additionally had a general medical evaluation which was also within normal limits revealed no new acute processes. Discharge summary: At the time of discharge he was absent lethality and his psychosis was resolving. His mood and anxiety were well managed. He endorsed a plan to avoid all drugs of abuse and follow-up with outpatient services per the treatment team's recommendations. He was evaluated and deemed to be absent credible lethality and had achieved a maximum benefit from an inpatient hospitalization, so he was discharged. Involuntary Hold Information 96 Hour Hold: 96 Hour Involuntary Admission: No Mental Status Exam MSE Comments: This is a well-nourished, well-developed white male with limited dress, grooming and eye contact. No abnormal movements. Cooperative with exam in no acute distress. Speech was more normal rate and volume. Mood described as better, affect congruentl. Thought process organized. Thought content: Patient denied suicidal or homicidal ideation. There are no delusions reported or noted, he denied any auditory or visual hallucinations. Attention and concentration were intact and memory appeared reliable but none were formally tested. He is alert and oriented x3. Insight and judgment are fair, impulse control is impaired, but improving. Discharge Data Vitals: Last Vital Signs Temp 97.7 F 02/29/20 06:00 Pulse 83 02/29/20 06:00 Resp 18 02/29/20 06:00 BP 108/72 02/29/20 06:00 Pulse Ox 97 02/29/20 06:00 Discharge Plan Discharge Patient Disposition: Home Condition: Stable Prescriptions: New trazodone 50 mg Tablet 50 mg PO BEDTIME PRN (Reason: Sleep) 30 Days Qty: 30 RF: 1 Continued IBU 800 mg tablet 800 mg PO TID PRN (Reason: pain) 30 Days Qty: 30 RF: 1 Abilify 15 mg Tablet 15 mg PO DAILY 30 Days Qty: 30 RF: 1 Discharge Orders: Discharge Order (Routine); Ordered 02/29/20 Ordered By: Tomi Hoyos Referrals: [facility] [Other] (go to assisted and ask about adventism program. Luis Linda should have your paperwork.) [facility] [Other] - 1-3 days (Hours: Thursday-, 8 a.m. to 8 p.m. Thursday, 8 a.m. to 5 p.m. Connection Center: 7:30 a.m. to 3:30 p.m. Services offered at this location: [facility] on [facility] houses psychiatry and therapy offices, as well as our new [facility] and our expanded [facility]. Houses adult and youth specialty services, as well as a variety of intake and assessment services, including Substance-Use Disorder assessments and connection to [facility] services within the [facility] system. The main [facility] is also located in [address]. For NEW and EXISTING clients: Please call [phone] ([facility]), ([facility]) or [phone] ([facility]) for more information or to begin services. Our physical locations and Connection Centers remain open with increased safeguards for your safety and that of our staff, but we ask you to call to to decide whether telehealth services are a good fit for your needs.) Discharge Diet: Regular Discharge Activity: Resume usual activity Patient Instructions: Trazodone (By mouth) Discharge Attestations NPU Time Spent in Discharge Care*: less than 30 min Specific Discharge Activities: Specific discharge activities: educating patient, discussing with case investigator/social workers/dc planners, documenting/other paperwork and evaluating patient/reviewing data Coding Level of Care Code Acute Cell Biology Scientist for [facility] Fwd Diagnoses Adjustment disorder with depressed mood F43.21 Inhalant abuse with intoxication F18.129 Suicidal ideation R45.851 Schizophrenia F20.9 Borderline intellectual functioning R41.83 Impulse control disorder, unspecified F63.9 Methamphetamine abuse in remission F15.11
[2020-02-29 11:37] VITALS: BP 108/72; PULSE 83; RESP 18; TEMP 36.5; O2SAT 97
== END 2020-02-29 12:16 | disposition home or self-care (01) | DRG 881 ==
LOC: ER 21:12 → NP 22:25
PROVIDERS: Emergency Medicine; Admitting Provider Psychiatry & Neurology Psychiatry; Emergency Provider Family Medicine; Visit Provider Psychiatry & Neurology Psychiatry
DX: F43.21 Adjustment disorder with depressed mood (principal); R45.851 Suicidal ideations; F15.11 Other stimulant abuse, in remission; F20.9 Schizophrenia, unspecified; R41.83 Borderline intellectual functioning; F63.9 Impulse disorder, unspecified; Z91.5 Personal history of self-harm; F18.129 Inhalant abuse with intoxication, unspecified; F17.210 Nicotine dependence, cigarettes, uncomplicated
CPT/HCPCS: 12345; 80053; 80306; 80307; 85025; 90471; 90686; 99284

== ENCOUNTER 2020-05-24 12:42 | Emergency (ER) | payer MEDICAID, SELFPAY ==
[2020-05-24 12:46] VITALS: BP 135/84; PULSE 84; RESP 15; TEMP 36.5; O2SAT 98; BMI 27.3
--- NOTE | 2020-05-24 13:01 | CT_ITS ---
WS: [id number] CT ABDOMEN PELVIS TECHNIQUE: Contrast-enhanced CT of the abdomen and pelvis with coronal and sagittal reformatted image s. CLINICAL INFORMATION: left inguinal pain, history of hernia COMPARISON: None. DLP: 598.[address] scans at [facility] use at least one of these dose optimization techniques: automat ed exposure control; mA and/or kV adjustment per patient size (includes targeted exams where dose is matched to clinical indication); or iterative reconstruction. FINDINGS: Mild diffuse fatty infiltration liver. Gallbladder is contracted. Normal portal vein and splenic vein . Normal GE junction. Normal spleen. Slight atelectasis in the lung bases. Normal pancreas. Normal ca liber abdominal aorta. Adrenal glands are normal. Normal renal parenchymal enhancement. No hydronephr osis. Normal caliber abdominal aorta. Normal sigmoid colon. No evidence of small or large bowel obstruction. Distended stomach with food pr oducts. Air-fluid level in the distal stomach. Tiny fat-containing umbilical hernia. Normal appendix in the right lower quadrant. No evidence of inguinal or femoral hernia. No herniated bowel. CT/CT abdomen pelvis w con* [id number] IMPRESSION: 1. Normal appendix in the right lower quadrant. 2. Incidental tiny fat-containing umbilical hernia. 3. No evidence of inguinal hernia. No herniated bowel. 4. No free fluid in the abdomen or pelvis. 5. Distended stomach with food products. No evidence of small or large bowel o bstruction. 6. No other significant findings.
[2020-05-24 13:02] VITALS: BP 124/83; PULSE 81; RESP 18; O2SAT 98
--- NOTE | 2020-05-24 13:02 | ED_ITS ---
HPI - Male Genitourinary General: Chief complaint: Urogenital-Male Stated complaint: testicle pain, vomiting Time Seen by Provider: 05/24/20 12:53 Source: patient Mode of arrival: ambulatory Limitations: no limitations History of Present Illness: HPI Narrative: 34-year-old male patient comes in with left groin pain. Patient states that about 2 weeks ago he had been pushing on a tractor and had some straining in that area. Patient reports yesterday he pulled a terminal from an car and during that he had sudden sharp pain in the left groin area. Patient is concerned that he may have caused a new hernia. Patient has a history of hernia repair in the past. Patient appears well. Patient appears in mild pain. Review of Systems General: Reports: 10 or more systems reviewed and unremarkable except in HPI and below GI: Reports: other (left groin pain) [facility] ED PFSH: Medical History (Updated 05/24/20 @ 14:03 by JAIME Lovelace) Depressive disorder Methamphetamine dependence Social History (Updated 05/24/20 @ 12:50 by Medardo Nguyen RN) Smoking and tobacco status: current every day smoker cigarettes Packs smoked per day: 1 Alcohol intake: current Alcohol intake frequency: few times a month Physical Exam Const: COMMON NORMALS: no acute distress and patient oriented x3 GENERAL APPEARANCE: cooperative HENMT: COMMON NORMALS: normocephalic and Normal external nose present HEAD & SCALP: normal to inspection and normocephalic NOSE: Normal external nose present MOUTH: Normal oral and palatal mucosa present Eye: GENERAL EYE: appearance normal, both eyes and all related structures Neck/C-Spine: COMMON NORMALS: full ROM Lymph: LYMPHATIC: no lymphadenopathy noted Chest: COMMONS NORMALS: normal inspection of the chest Resp: COMMON NORMALS: normal respiratory effort EFFORT & INSPECTION: Yes able to speak in complete sentences Cardio: COMMON NORMALS: regular rate and regular rhythm RATE: regular rate RHYTHM: regular rhythm GI: COMMON NORMALS: non-tender : COMMON NORMALS: Yes no CVA tenderness BLADDER/KIDNEY EXAM: Yes no CVA tenderness OTHER: Cremasteric reflex present. Tenderness is noted to left inguinal area. No bulging is noted, or obvious hernia. Back/Pelvis: COMMON NORMALS: no CVA tenderness and thoracic and lumbar spine normal to inspection Extremity: COMMON NORMALS: normal to inspection Neuro: COMMON NORMALS: patient oriented x3 and moves all extremities Psych: COMMON NORMALS: mental status grossly normal and cooperative Skin: COMMON NORMALS: no rashes or lesions noted GENERAL SKIN EXAM: no rashes or lesions noted Course Vital Signs: Vital signs: Vital Signs Temperature 97.7 F 05/24/20 12:46 Pulse Rate 89 05/24/20 14:08 Respiratory Rate 18 05/24/20 14:08 Blood Pressure 134/76 05/24/20 14:08 Pulse Oximetry 99 05/24/20 14:08 MDM - Male MDM Narrative: Medical decision making narrative: Patient comes in for eval uation of some left inguinal pain starting 2 weeks ago but worse since pulling on a turbo from an engine yesterday. Patient reports history of hernia repair and is concerned he might have developed a new hernia. On exam patient has normal genital exam with a normal cremasteric reflex. Both testicles are bilaterally descended and nontender. No bulging or hernia is obvious. Differential diagnosis includes incarcerated hernia, inguinal area muscle strain, epididymitis. Laboratory values were unremarkable. CT scan was showed a normal appendix and no signs of incarcerated hernia. Reviewed this with patient recommended treatment for inguinal strain. Patient reported understanding agreed to plan. Lab Data: Labs: Lab Results 05/24/20 05/24/20 Range/Units 13:09 13:09 WBC 6.4 (4.0-10.0) 10^3/ uL RBC 4.74 (4.1-5.3) 10^6/u L Hgb 14.7 (11.7-16.6) g/dL Hct 42.7 (42.0-52.0) % MCV 90.1 (80-94) fL MCH 31.0 (28.0-34.0) pg MCHC 34.4 (30.0-36.0) g/dL RDW 12.0 L (12.1-15.1) % Plt Count 278 (130-400) 10^3/c mm MPV 9.6 (7.4-10.4) fL Neut % (Auto) 54.1 % Lymph % (Auto) 36.5 % [place] % (Auto) 7.4 % Eos % (Auto) 1.4 % Baso % (Auto) 0.3 % Neut # (Auto) 3.44 (1.8-7.7) 10^3/u L Lymph # (Auto) 2.3 (0.8-4.8) 10^3/u L [place] # (Auto) 0.5 (0.2-0.9) 10^3/u L Eos # (Auto) 0.1 (0.0-0.8) 10^3/u L Baso # (Auto) 0.0 (0.0-0.1) 10^3/u L Nucleated RBC % (a uto) 0 % Nucleated RBCs # 0.0 /100WBC Sodium 138 (136-145) mmol/L Potassium 3.7 (3.5-5.1) mmol/L Chloride 103 (98-107) mmol/L Carbon Dioxide 26 (22-29) mmol/L Anion Gap 12.7 (5-19) BUN 12 (6-20) mg/dL Creatinine 0.8 (0.7-1.2) mg/dL GFR Calculation 110.0 (90-130) mL/min Glucose 123 H (65-115) mg/dL Calculated Osmolal ity 287 (285-295) mOsm/k g Calcium 8.4 L (8.5-10.5) mg/dL Total Bilirubin 0.4 (0.15-1.2) mg/dL AST 26 (0-40) U/L ALT 28 (0-41) U/L Alkaline Phosphata se 97 (40-130) IU/L Total Protein 6.4 L (6.6-8.7) g/dL Albumin 3.9 (3.5-5.2) g/dL Globulin 2.5 (1.3-4.6) g/dL Discharge Plan Discharge Patient Disposition: Home Clinical Impression: Inguinal muscle strain Qualifiers: Encounter type: initial encounter Qualified Code(s): S39.013A - Strain of muscle, fascia and tendon of pelvis, initial encounter Condition: Stable Prescriptions: Continued IBU 800 mg tablet 800 mg PO TID PRN (Reason: pain) 30 Days Qty: 30 RF: 1 No Action trazodone 50 mg Tablet 50 mg PO BEDTIME PRN (Reason: Sleep) 30 Days Qty: 30 RF: 1 Abilify 15 mg Tablet 15 mg PO DAILY 30 Days Qty: 30 RF: 1 Discharge Orders: Discharge ED (Routine); Ordered 05/24/20 Ordered By: Corey Milligan Discharge Diet: Usual diet Discharge Activity: Increase activity as tolerated Patient Instructions: Opioid Safety Activity Restrictions/Additional Instructions: Activity as tolerated. Ice or heat to the area for further pain relief. Drink plenty of fluids of medication. Follow-up with primary care for further treatment. Return to the emergency room for high fever, uncontrolled pain, blood in vomit or stool. Stand Alone Forms: Work/School Release Coding Level of Care Code ED Pharmacist Technician for [facility] Fwd Exam Comprehensive
[2020-05-24 13:16] LABS: Basophils % 0.3 %; Eosinophils # 0.1 10^3/uL (0.0-0.8); Eosinophils % 1.4 %; Hematocrit 42.7 % (42.0-52.0); Hemoglobin 14.7 g/dL (11.7-16.6); Lymphocytes # 2.3 10^3/uL (0.8-4.8); Lymphocytes % 36.5 %; Mean Corpuscular HGB Conc 34.4 g/dL (30.0-36.0); Mean Corpuscular Volume 90.1 fL (80-94); Mean Platelet Volume 9.6 fL (7.4-10.4); Monocytes # 0.5 10^3/uL (0.2-0.9); Monocytes % 7.4 %; Neutrophils # 3.44 10^3/uL (1.8-7.7); Neutrophils % 54.1 %; Nucleated Red Blood Cells % 0 %; Platelet Count 278 10^3/cmm (130-400); Red Blood Count 4.74 10^6/uL (4.1-5.3); White Blood Count 6.4 10^3/uL (4.0-10.0)
[2020-05-24] MEDS: iohexol 300 mg/mL 100 mL Btl IV (13:19)
[2020-05-24 13:29] LABS: Alanine Aminotransferase 28 U/L (0-41); Albumin Level 3.9 g/dL (3.5-5.2); Alkaline Phosphatase 97 IU/L (40-130); Anion Gap 12.7 (5-19); Aspartate Amino Transferase 26 U/L (0-40); Blood Urea Nitrogen 12 mg/dL (6-20); Calcium 8.4 mg/dL (8.5-10.5); Carbon Dioxide 26 mmol/L (22-29); Chloride 103 mmol/L (98-107); Globulin 2.5 g/dL (1.3-4.6); Glucose 123 mg/dL (65-115); Osmolality Calculated 287 mOsm/kg (285-295); Potassium 3.7 mmol/L (3.5-5.1); Sodium 138 mmol/L (136-145); Total Bilirubin 0.4 mg/dL (0.15-1.2); Total Protein 6.4 g/dL (6.6-8.7)
[2020-05-24 14:08] VITALS: BP 134/76; PULSE 89; RESP 18; O2SAT 99
[2020-05-24 14:40] LABS: Glucose Urine UA Trace (Normal); Ketones Urine Negative (Negative); Protein Urine Neg (Negative); Urine Appearance Clear (CLEAR); Urine Color Yellow (Yellow); pH Urine 6.5 (5-7)
[2020-05-24 14:41] LABS: Add Urine Microscopic? YES; Bilirubin Urine Neg (Negative); Blood Urine Neg (Negative); Leukocyte Esterase Urine 1+ (Negative); Nitrate Urine Positive (Negative); Urobilinogen Urine Norm (Negative)
[2020-05-24 14:42] LABS: Add Urine Culture? No
== END 2020-05-24 14:08 | disposition home or self-care (01) ==
PROVIDERS: Emergency Provider Nurse Practitioner Family
DX: S39.013A Strain of muscle, fascia and tendon of pelvis, initial encounter (principal); X50.9XXA Other and unspecified overexertion or strenuous movements or postures, initial encounter
CPT/HCPCS: 74177; 80053; 81001; 85025; 99283; Q9967

== ENCOUNTER 2020-05-30 11:39 | Inpatient (IN) | payer MEDICAID, SELFPAY ==
[2020-05-30 11:40] VITALS: BP 132/77; PULSE 70; RESP 18; TEMP 36.2; O2SAT 100; BMI 27.3
--- NOTE | 2020-05-30 11:59 | W.ED.PSYCH ---
HPI - Psych General: Chief Complaint: Psychiatric Symptoms Stated Complaint: Nervous/Stressed Time Seen by Provider: 05/30/20 11:43 Source: patient Mode of arrival: ambulatory Limitations: no limitations History of Present Illness: HPI Narrative: Patient is a 34-year-old male with a history of adjustment disorder with depression, schizophrenia, who has been off his psychiatric medications for about 2 months presents to the emergency department with suicidal ideation. He states that over the last few weeks he has been having increasing stress, he is homeless, he is out of work, while he was working everything he does was not right, and he feels he is under a lot of stress. He is having auditory hallucinations and having thoughts of suicide. He has no plan. He would like to be admitted to the neuropsychiatric unit for stabilization and commencement of his antipsychotics. MD complaint: suicidal ideation and feels depressed Onset (ago): day(s) Duration: constant History of same: Yes Relieving factors: none Exacerbating factors: none Context: not taking psychiatric medications Associated psychiatric symptoms: depression, suicidal ideation and auditory hallucinations Associated symptoms: Reports auditory hallucinations, depression and suicidal ideation Treatments prior to arrival: none If self harm: admits thoughts of self harm Review of Systems General: Reports: 10 or more systems reviewed and unremarkable except in HPI and below Const: Denies: fever(s), chills or body aches Eyes: Denies: change in vision or blurry vision ENMT: Denies: throat pain, enlarged tonsils, odynophagia, hoarseness, mouth pain or swelling of lips/tongue Card: Denies: palpitations, irregular heart rhythm, edema or swelling of feet/ankles Resp: Denies: dyspnea, productive cough or non-productive cough GI: Denies: abdominal pain, nausea or vomiting : Denies: flank pain, dysuria, urinary frequency, urinary urgency or urinary hesitancy Musc: Denies: neck pain, back pain or extremity swelling Skin/Breast: Denies: rash, pruritus or erythema Neuro: Denies: headache(s), numbness in extremities or weakness in extremities Psych: Reports: depression, auditory hallucinations and suicidal ideation Endo: Denies: polyuria, polydipsia or tired all the time [facility] ED PFSH: Medical History (Updated 05/30/20 @ 13:23 by Reynaldo Allen MD, [facility] [place] Depressive disorder Methamphetamine dependence Social History Smoking and tobacco status: current every day smoker cigarettes Packs smoked per day: 1 Alcohol intake: current Alcohol intake frequency: few times a month Physical Exam Const: COMMON NORMALS: no acute distress, average body habitus, patient oriented x3, no limitations, healthy appearing, alert and well nourished HENMT: COMMON NORMALS: normocephalic, atraumatic and moist oral mucous membranes HEAD & SCALP: normocephalic and atraumatic Eye: COMMON NORMALS: Equal, round and reactive pupils present, EOMs intact bilaterally, conjunctivae normal and no scleral icterus CONJUNCTIVA: Yes conjunctivae normal PUPIL: Yes Equal, round and reactive pupils present Neck/C-Spine: COMMON NORMALS: no meningeal signs and no JVD Resp: COMMON NORMALS: normal respiratory effort, No retractions, No use of accessory muscles, clear to auscultation bilaterally and percussion normal AUSCULTATION: clear to auscultation bilaterally PERCUSSION: percussion normal Cardio: COMMON NORMALS: no JVD, regular rate, regular rhythm, S1 normal heart sound present, S2 normal heart sound present, No gallops present (Cardio), No clicks present (Cardio), No murmurs present (Cardio), No rub (Cardio) and Peripheral pulses 2+ throughout RATE: regular rate RHYTHM: regular rhythm HEART SOUNDS: S1 normal heart sound present and S2 normal heart sound present PERIPHERAL PULSES: Peripheral pulses 2+ throughout GI: COMMON NORMALS: Normal to inspection, nondistended, normoactive bowel sounds present, Soft to palpation, non-tender, No hepatosplenomegaly present, no masses and no bruits PALPATION: Yes Soft to palpation and Yes No hepatosplenomegaly present Extremity: COMMON NORMALS: normal to inspection, full ROM, capillary refill normal, no calf tenderness and no pedal edema Neuro: COMMON NORMALS: patient oriented x3 SENSORIUM/ORIENTATION: Yes alert MENINGEAL SIGNS: Yes no meningeal signs Psych: APPEARANCE: Yes unkempt ACTIVITY/MOTOR BEHAVIOR: Yes psychomotor agitation Skin: COMMON NORMALS: no rashes or lesions noted, no wounds, turgor normal, no jaundice, no petechiae and no mottling GENERAL SKIN EXAM: no rashes or lesions noted and turgor normal MDM - Psych MDM Narrative: Medical decision making narrative: 34-year-old male with a history of schizophrenia and adjustment disorder with depression presents to the emergency department with suicidal ideation. He is medically cleared and is admitted to the neuropsychiatric unit for further evaluation and management. Medical Records: Attestation: I reviewed the patient's medical records. Lab Data: Attestation: I reviewed the patient's lab results. Labs: Lab Results 05/30/20 05/30/20 05/30/20 Range/Units 11:58 11:58 12:02 WBC 6.8 (4.0-10.0) 10^3/ uL RBC 5.37 H (4.1-5.3) 10^6/u L Hgb 16.7 H (11.7-16.6) g/dL Hct 49.4 (42.0-52.0) % MCV 92.0 (80-94) fL MCH 31.1 (28.0-34.0) pg MCHC 33.8 (30.0-36.0) g/dL RDW 12.2 (12.1-15.1) % Plt Count 314 (130-400) 10^3/c mm MPV 10.0 (7.4-10.4) fL Neut % (Auto) 59.0 % Lymph % (Auto) 34.1 % Rapides % (Auto) 5.6 % Eos % (Auto) 0.7 % Baso % (Auto) 0.3 % Neut # (Auto) 4.02 (1.8-7.7) 10^3/u L Lymph # (Auto) 2.3 (0.8-4.8) 10^3/u L Rapides # (Auto) 0.4 (0.2-0.9) 10^3/u L Eos # (Auto) 0.1 (0.0-0.8) 10^3/u L Baso # (Auto) 0.0 (0.0-0.1) 10^3/u L Nucleated RBC % (a uto) 0 % Nucleated RBCs # 0.0 /100WBC Sodium (136-145) mmol/L Potassium (3.5-5.1) mmol/L Chloride (98-107) mmol/L Carbon Dioxide (22-29) mmol/L Anion Gap (5-19) BUN (6-20) mg/dL Creatinine (0.7-1.2) mg/dL GFR Calculation (90-130) mL/min Glucose (65-115) mg/dL Calculated Osmolal ity (285-295) mOsm/k g Calcium (8.5-10.5) mg/dL Total Bilirubin (0.15-1.2) mg/dL AST (0-40) U/L ALT (0-41) U/L Alkaline Phosphata se (40-130) IU/L Total Protein (6.6-8.7) g/dL Albumin (3.5-5.2) g/dL Globulin (1.3-4.6) g/dL TSH (0.27-4.20) uIU/ mL Urine Color Yellow (Yellow) Urine Appearance Clear (CLEAR) Urine pH 6 (5-7) Ur Specific Gravit y 1.015 (1.005-1.030) Urine Protein Neg (Negative) Urine Glucose (UA) Norm (Normal) Urine Ketones Negative (Negative) Urine Blood Neg (Negative) Urine Nitrate Negative (Negative) Urine Bilirubin Neg (Negative) Urine Urobilinogen Norm (Negative) mg/dL Ur Leukocyte Leticia ase Negative (Negative) Salicylates (3-10) mg/dL Urine Opiates Scre en Negative (Negative) ng/mL Acetaminophen (10-30) ug/mL Ur Barbiturates Sc reen Negative (Negative) ng/mL Ur Phencyclidine S crn Negative (Negative) ng/mL Ur Amphetamines Sc reen Negative (Negative) ng/mL U Benzodiazepines Scrn Negative (Negative) ng/mL Urine Cocaine Scre en Negative (Negative) ng/mL U Marijuana (THC) Screen Positive H (Negative) ng/mL Ethyl Alcohol (0-10) mg/dL 05/30/20 Range/Units 12:02 WBC (4.0-10.0) 10^3/ uL RBC (4.1-5.3) 10^6/u L Hgb (11.7-16.6) g/dL Hct (42.0-52.0) % MCV (80-94) fL MCH (28.0-34.0) pg MCHC (30.0-36.0) g/dL RDW (12.1-15.1) % Plt Count (130-400) 10^3/c mm MPV (7.4-10.4) fL Neut % (Auto) % Lymph % (Auto) % Rapides % (Auto) % Eos % (Auto) % Baso % (Auto) % Neut # (Auto) (1.8-7.7) 10^3/u L Lymph # (Auto) (0.8-4.8) 10^3/u L Rapides # (Auto) (0.2-0.9) 10^3/u L Eos # (Auto) (0.0-0.8) 10^3/u L Baso # (Auto) (0.0-0.1) 10^3/u L Nucleated RBC % (a uto) % Nucleated RBCs # /100WBC Sodium 135 L (136-145) mmol/L Potassium 4.1 (3.5-5.1) mmol/L Chloride 100 (98-107) mmol/L Carbon Dioxide 26 (22-29) mmol/L Anion Gap 13.1 (5-19) BUN 15 (6-20) mg/dL Creatinine 1.0 (0.7-1.2) mg/dL GFR Calculation 85.0 L (90-130) mL/min Glucose 100 (65-115) mg/dL Calculated Osmolal ity 281 L (285-295) mOsm/k g Calcium 9.7 (8.5-10.5) mg/dL Total Bilirubin 0.4 (0.15-1.2) mg/dL AST 19 (0-40) U/L ALT 26 (0-41) U/L Alkaline Phosphata se 88 (40-130) IU/L Total Protein 7.0 (6.6-8.7) g/dL Albumin 4.6 (3.5-5.2) g/dL Globulin 2.4 (1.3-4.6) g/dL TSH 4.47 H (0.27-4.20) uIU/ mL Urine Color (Yellow) Urine Appearance (CLEAR) Urine pH (5-7) Ur Specific Gravit y (1.005-1.030) Urine Protein (Negative) Urine Glucose (UA) (Normal) Urine Ketones (Negative) Urine Blood (Negative) Urine Nitrate (Negative) Urine Bilirubin (Negative) Urine Urobilinogen (Negative) mg/dL Ur Leukocyte Leticia ase (Negative) Salicylates < 0.3 L (3-10) mg/dL Urine Opiates Scre en (Negative) ng/mL Acetaminophen < 5.0 L (10-30) ug/mL Ur Barbiturates Sc reen (Negative) ng/mL Ur Phencyclidine S crn (Negative) ng/mL Ur Amphetamines Sc reen (Negative) ng/mL U Benzodiazepines Scrn (Negative) ng/mL Urine Cocaine Scre en (Negative) ng/mL U Marijuana (THC) Screen (Negative) ng/mL Ethyl Alcohol < 10 (0-10) mg/dL Discharge Plan Discharge Patient Disposition: Admitted As Inpatient Clinical Impression: Suicidal ideation, Depression, Adjustment disorder with depressed mood Condition: Stable Prescriptions: No Action ibuprofen [IBU] 800 mg tablet 800 mg PO TID PRN (Reason: pain) 30 Days Qty: 30 RF: 1 trazodone 50 mg Tablet 50 mg PO BEDTIME PRN (Reason: Sleep) 30 Days Qty: 30 RF: 1 aripiprazole [Abilify] 15 mg Tablet 15 mg PO DAILY 30 Days Qty: 30 RF: 1 Coding Level of Care Code ED Dyed Yarn Operator for Chg Fwd Exam Comprehensive
--- NOTE | 2020-05-30 12:05 | PC.NURSE ---
patient stated had thoughts of harm self, no plan at this time. denied any thoughts of harm others. vs stable. no acute distress noted. suicide precaution applied
[2020-05-30 12:06] LABS: Add Urine Microscopic? NO
[2020-05-30 12:14] LABS: Urine Appearance Clear (CLEAR); Urine Color Yellow (Yellow); pH Urine 6 (5-7)
[2020-05-30 12:15] LABS: Bilirubin Urine Neg (Negative); Blood Urine Neg (Negative); Glucose Urine UA Norm (Normal); Ketones Urine Negative (Negative); Leukocyte Esterase Urine Negative (Negative); Nitrate Urine Negative (Negative); Protein Urine Neg (Negative); Specific Gravity, Urine 1.015 (1.005-1.030); Urobilinogen Urine Norm (Negative)
[2020-05-30 12:22] LABS: Amphetamines Screen Urine Negative (Negative); Barbiturates Screen Urine Negative (Negative); Benzodiazepines Screen Urine Negative (Negative); Cocaine Screen Urine Negative (Negative); Opiate Screen Urine Negative (Negative); PCP Screen Urine Negative (Negative); THC Screen Urine Positive (Negative)
[2020-05-30 12:29] LABS: Basophils % 0.3 %; Eosinophils # 0.1 10^3/uL (0.0-0.8); Eosinophils % 0.7 %; Hematocrit 49.4 % (42.0-52.0); Hemoglobin 16.7 g/dL (11.7-16.6); Lymphocytes # 2.3 10^3/uL (0.8-4.8); Lymphocytes % 34.1 %; Mean Corpuscular HGB Conc 33.8 g/dL (30.0-36.0); Mean Corpuscular Hemoglobin 31.1 pg (28.0-34.0); Monocytes # 0.4 10^3/uL (0.2-0.9); Monocytes % 5.6 %; Neutrophils # 4.02 10^3/uL (1.8-7.7); Nucleated Red Blood Cells % 0 %; Platelet Count 314 10^3/cmm (130-400); Red Blood Count 5.37 10^6/uL (4.1-5.3); Red Cell Distribution Width 12.2 % (12.1-15.1); White Blood Count 6.8 10^3/uL (4.0-10.0)
[2020-05-30 12:47] LABS: Alanine Aminotransferase 26 U/L (0-41); Albumin Level 4.6 g/dL (3.5-5.2); Alkaline Phosphatase 88 IU/L (40-130); Anion Gap 13.1 (5-19); Aspartate Amino Transferase 19 U/L (0-40); Blood Urea Nitrogen 15 mg/dL (6-20); Calcium 9.7 mg/dL (8.5-10.5); Carbon Dioxide 26 mmol/L (22-29); Chloride 100 mmol/L (98-107); Globulin 2.4 g/dL (1.3-4.6); Glucose 100 mg/dL (65-115); Osmolality Calculated 281 mOsm/kg (285-295); Potassium 4.1 mmol/L (3.5-5.1); Sodium 135 mmol/L (136-145); Thyroid Stimulating Hormone 4.47 uIU/mL (0.27-4.20); Total Bilirubin 0.4 mg/dL (0.15-1.2)
[2020-05-30 12:54] LABS: Acetaminophen < 5.0 ug/mL (10-30); Alcohol Level < 10 mg/dL (0-10); Salicylate < 0.3 mg/dL (3-10)
--- NOTE | 2020-05-30 13:05 | PC.NURSE ---
patient resting quietly. no acute distress noted at this time.
[2020-05-30 13:38] VITALS: BP 131/73; PULSE 69; RESP 16; O2SAT 97
[2020-05-30 14:00] VITALS: BP 126/87; PULSE 73; RESP 16; TEMP 36.5; O2SAT 98
[2020-05-30] MEDS: nicotine 2 mg Gum BUCCAL (17:22)
[2020-05-30 20:29] VITALS: BP 127/80; PULSE 76; RESP 18; TEMP 36.8; O2SAT 98
[2020-05-31 06:00] VITALS: BP 135/84; PULSE 85; RESP 17; TEMP 36.7; O2SAT 97
--- NOTE | 2020-05-31 10:46 | P.HP_ITS ---
Providers/Chief Complaint Admitting Physician: Tomi Hoyos MD Chief Complaint: Nervous/Stressed HPI NPU History of Present Illness Jeremiah Power is a 34 year old male who presented to the emergency department with the following report: Chief Complaint: Psychiatric Symptoms Stated Complaint: Nervous/Stressed Time Seen by Provider: 05/30/20 11:43 Source: patient Mode of arrival: ambulatory Limitations: no limitations History of Present Illness: HPI Narrative: Patient is a 34-year-old male with a history of adjustment disorder with depression, schizophrenia, who has been off his psychiatric medications for about 2 months presents to the emergency department with suicidal ideation. He states that over the last few weeks he has been having increasing stress, he is homeless, he is out of work, while he was working everything he does was not right, and he feels he is under a lot of stress. He is having auditory hallucinations and having thoughts of suicide. He has no plan. He would like to be admitted to the neuropsychiatric unit for stabilization and commencement of his antipsychotics. MD complaint: suicidal ideation and feels depressed Onset (ago): day(s) Duration: constant History of same: Yes Relieving factors: none Exacerbating factors: none Context: not taking psychiatric medications Associated psychiatric symptoms: depression, suicidal ideation and auditory hallucinations Associated symptoms: Reports auditory hallucinations, depression and suicidal ideation Treatments prior to arrival: none If self harm: admits thoughts of self harm. He was admitted to the neuropsychiatric unit for definitive treatment of those issues. Jeremiah was an irritated historian as he often is not really wanting to answer questions and expressing frustration with each additional question. He reports that he has not been taking his medication for period time because when he takes his medication he is not able to work and he needs to work. The situation is made more challenging by the fact that he has 2 employers that he works for who seem to take advantage of his situation and under pay him and overworked him this lack of fair compensation leads to all kinds of challenges and stress. When questioned about how to fix this conundrum he reported a plan to restart his medication and identifying that may be work need to be secondary and his mental health and recovery need to be primary and that his drive to seek employment all the time may need to be less primary and possibly consider re sources available given his condition. We discussed the risk benefits and alternatives of restarting Abilify and he understood and agreed to proceed as is documented in this note. We reviewed his previous notes and he denies substantive changes in his psychosocial circumstances. An excerpt of his last inpatient hospitalization is included below for context. [place] [facility] [place]: History of Present Illness Jeremiah Power is a 34 year old male who presented to the emergency room on a voluntary basis reporting suicidal ideation. The patient is not considered a r eliable source of information. However he does tell a story where on the day of admission, he lost his job. He became despondent. He started hacking aerosols. It was discovered by his mother. He was kicked out of the house. He started having suicidal thoughts. He decided to come to the emergency room. When asked how we can help, he stated I want to go to rehab. He then became resistant to any further interview. To his credit, his urine drug screen was negative for amphetamines for the first time. Laboratory Tests 02/24/20 02/24/20 21:09 21:09 Urine Opiates Screen Negative Ur Barbiturates Screen Negative Ur Amphetamines Screen Negative U Benzodiazepines Scrn Negative Urine Cocaine Screen Negative U Marijuana (THC) Screen Negative Ethyl Alcohol 10 Emergency room physician note:HPI Narrative: 34 year old male who presents to the ED with suicidal ideation. He said his mother kicked him out of her house because she saw him sniffing on aerosol duster. He states that after that he tried to overdose on the same in a suicide attempt. He is here because he would like some help. Mental health history: He has 5 prior hospitalizations. First was in 08/08/2017 for 3 days, second was 08/19/2017 for 3 days and again in February 2018 for 3 days. Each time, for methamphetamine. Discharge planning on at least 2 of those sent him to [facility] for rehabilitation program. HE was again admitted on 07/26/2019 for five days after methamphetamine caused him to be psychotic. HE was again admitted on 01/08/2020 for 4 days with suicidal ideation under the influence of amphetamines. On the last two admissions, he responded to a combination of Abilify and abstinence. It should be noted that both of those admission were subsequent to his substance use that was initiated after a psychosocial stressor. HE has been non-compliant with outpatient care and he is evasive about whether he has been taking his medication. Review of Systems Narrative: Patient refused to participate in review of systems. Meds NPU Home Medications Medication Instructions Recorded Confirmed Last Taken Type aripiprazole [Abilify] 15 mg PO DAILY 30 Days #30 tab 01/12/20 02/24/20 02/23/20 Rx ibuprofen [IBU] 800 mg PO TID PRN #30 tab 01/21/20 02/24/20 Unknown Rx Allergies Allergy/AdvReac Type Severity Reaction Status Date / Time Penicillins Allergy Unknown Verified 10/06/19 17:50 PFS NPU PFSH: Medical History (Updated 02/25/20 @ 09:03 by Kris Oliver MD) Depressive disorder Methamphetamine dependence Social History Smoking and tobacco status: current every day smoker Meds NPU Home Medications Medication Instructions Recorded Confirmed Last Taken Type aripiprazole [Abilify] 15 mg PO DAILY 30 Days #30 tab 02/29/20 05/30/20 Unknown Rx trazodone 50 mg PO BEDTIME PRN 30 Days #30 02/29/20 05/30/20 Unknown Rx tab ibuprofen [IBU] 800 mg PO TID PRN 30 Days #30 tab 05/24/20 05/30/20 05/25/20 Rx Allergies Allergy/AdvReac Type Severity Reaction Status Date / Time Penicillins Allergy Unknown Verified 10/06/19 17:50 [facility] NPU PFSH: Medical History (Updated 06/01/20 @ 00:00 by ) Depressive disorder Methamphetamine dependence Social History Smoking and tobacco status: current every day smoker cigarettes Packs smoked per day: 1 Alcohol intake: current Alcohol intake frequency: few times a month Mental Status Exam MSE Comments: This is a well-nourished, well-developed white male in hospital scrubs with limited dress, grooming and eye contact. No abnormal movements except for mild psychomotor agitation. Cooperative with exam in mild distress. Speech was increased rate and normal volume. Mood described as depressed and anxious affect congruent. Thought process organized. Thought content: Patient endorsed suicidal, but denied homicidal ideation. There are no delusions reported or noted, he denied any auditory or visual hallucinations. Attention and concentration were intact and memory appeared reliable but none were formally tested. He is alert and oriented x3. Insight and judgment are fair, impulse control is impaired. Vitals/I&O/Wt Last Vital Signs Temp 98.1 F 05/31/20 06:00 Pulse 85 05/31/20 06:00 Resp 17 05/31/20 06:00 BP 135/84 05/31/20 06:00 Pulse Ox 97 05/31/20 06:00 Weight last 48 hrs Weight 81.647 kg Data NPU : 05/30/20 12:02 05/30/20 12:02 A&P Assessment and plan (1) Suicidal ideation: Status: Acute (2) Depression: Status: Acute Qualifiers: Depression Type: unspecified Qualified Code(s): F32.9 - Major depressive disorder, single episode, unspecified (3) Adjustment disorder with depressed mood: Status: Acute (4) Schizophrenia: Status: Acute (5) Inhalant abuse with intoxication: Status: Acute (6) Borderline intellectual functioning: Status: Acute (7) Impulse control disorder, unspecified: Status: Acute (8) Methamphetamine abuse in remission: Status: Acute Additional A&P Information This is a 34-year-old white male with a long history of schizophrenia/psychosis, addiction depression and anxiety who presents overwhelmed with the stressors of trying to maintain employment and the less than ideal working circumstances who endorses a desire to restart his medication. 1. Continue current medication. Restart previous medication. 2. Continue every 15 minute checks for safety. 3. Encourage individual, group and milieu therapies. 4. Encourage sober living treatment after discharge at the highest level of care to which he is willing to commit. Involuntary Hold Information 96 Hour Hold: 96 Hour Involuntary Admission: No Attestations NPU Medical Necessity Statement*: Inpatient hospitalization is medically necessary and the clinically appropriate intervention at this time. We will monitor medications and make changes as indicated. Patient will be in the hospital for over two midnights. Likely length of stay 3 to 5 days. 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
[2020-05-31 14:00] VITALS: BP 146/78; PULSE 77; RESP 18; TEMP 36.3; O2SAT 96
--- NOTE | 2020-05-31 15:29 | PC.RESP ---
SMOKING CESSATION INFORMATION SENT TO PATIENT.
[2020-05-31] MEDS: nicotine 2 mg Gum BUCCAL (18:18)
--- NOTE | 2020-05-31 19:42 | P.PN_ITS ---
NPU Therapy Progress Note Therapy Progress Note Date: 05/31/20 Time In: 19:30 Time Out: 19:40 Symptoms Reported: none reported Mood: reports he is happy Progress Note: Jeremiah says hi to this WAREHOUSE SORTER as she is walking down the [place]. WAREHOUSE SORTER introduces herself and asks Jeremiah if he has anything he would like to talk about today. Jeremiah reports he is happy and laughs inappropriately. He was asked what brought him to the stress unit and he states he got mad and did not want to discuss further. WAREHOUSE SORTER educated about where she worked and access to [employer] if needed. He does state that he received his medications since being hospitalized and feels much better. He thanked WAREHOUSE SORTER for stopping by and confirms again is doing great! . Intervention: WAREHOUSE SORTER educated about her role at [facility] and [facility] services. WAREHOUSE SORTER praised Jeremiah for taking his medications and he was encouraged to continue this behavior. Reported Goals Before Discharge: None reported.
--- NOTE | 2020-05-31 19:42 | PM.NPTHER ---
NPU Therapy Progress Note Therapy Progress Note Date: 05/31/20 Time In: 19:30 Time Out: 19:40 Symptoms Reported: none reported Mood: reports he is happy Progress Note: Jeremiah says hi to this REAL ESTATE LAWYER as she is walking down the [place]. REAL ESTATE LAWYER introduces herself and asks Jeremiah if he has anything he would like to talk about today. Jeremiah reports he is happy and laughs inappropriately. He was asked what brought him to the stress unit and he states he got mad and did not want to discuss further. REAL ESTATE LAWYER educated about where she worked and access to [employer] if needed. He does state that he received his medications since being hospitalized and feels much better. He thanked REAL ESTATE LAWYER for stopping by and confirms again is doing great! . Intervention: REAL ESTATE LAWYER educated about her role at [facility] [place] and [facility] [place] services. REAL ESTATE LAWYER praised Jeremiah for taking his medications and he was encouraged to continue this behavior. Reported Goals Before Discharge: None reported.
[2020-05-31] MEDS: acetaminophen 325 mg Tablet 650 MG PO (21:02)
[2020-05-31] MEDS: hyDROXYzine 25 mg Capsule 50 MG PO (21:03)
[2020-05-31] MEDS: trazodone 50 mg Tablet PO (21:04)
[2020-05-31 22:00] VITALS: BP 126/79; PULSE 71; RESP 18; TEMP 36.6; O2SAT 97
[2020-06-01 06:00] VITALS: BP 115/75; PULSE 85; RESP 16; TEMP 36.4; O2SAT 97
[2020-06-01 07:19] LABS: Alanine Aminotransferase 30 U/L (0-41); Albumin Level 4.3 g/dL (3.5-5.2); Alkaline Phosphatase 79 IU/L (40-130); Anion Gap 12.4 (5-19); Aspartate Amino Transferase 19 U/L (0-40); Blood Urea Nitrogen 16 mg/dL (6-20); Calcium 9.1 mg/dL (8.5-10.5); Carbon Dioxide 25 mmol/L (22-29); Chloride 103 mmol/L (98-107); Globulin 2.7 g/dL (1.3-4.6); Glucose 94 mg/dL (65-115); Osmolality Calculated 283 mOsm/kg (285-295); Potassium 4.4 mmol/L (3.5-5.1); Sodium 136 mmol/L (136-145); Total Bilirubin 0.4 mg/dL (0.15-1.2)
[2020-06-01 14:00] VITALS: BP 120/56; PULSE 92; RESP 18; TEMP 36.5; O2SAT 97
[2020-06-01] MEDS: nicotine 2 mg Gum BUCCAL (17:13)
--- NOTE | 2020-06-01 17:25 | P.PN_ITS ---
Subjective NPU Subjective: Interval history: Jeremiah presents today reporting that he is feeling a little better. We discussed the fact that his mother has come through for him and is going to let him stay there but is very very anxious about him being there and not taking his medication, then years and posturing and making her feel unsafe in the home. We discussed the critical need for him to take his medications each day which he acknowledges he would do. We agreed to have him have 1 more day of getting the medication here and he would then be discharged with a ride to his mother's place. Otherwise reports he is eating and sleeping okay. Mental Status Exam MSE Comments: This is a well-nourished, well-developed white male in hospital scrubs with limited dress, grooming and eye contact. No abnormal movements except for mild psychomotor agitation. Cooperative with exam in mild distress. Speech was more normal rate and volume. Mood described as anxious, affect congruent. Thought process organized. Thought content: Patient denied suicidal or homicidal ideation. There are no delusions reported or noted, he denied any auditory or visual hallucinations. Attention and concentration were intact and memory appeared reliable but none were formally tested. He is alert and oriented x3. Insight and judgment are fair, impulse control is impaired, but improving. Vitals/I&O/Wt Last Vital Signs Temp 98.5 F 06/01/20 20:23 Pulse 76 06/01/20 20:23 Resp 18 06/01/20 20:23 BP 123/72 06/01/20 20:23 Pulse Ox 98 06/01/20 20:23 Data NPU : 05/30/20 12:02 06/01/20 06:44 A&P Additional A&P Information (1) Suicidal ideation: (2) Depression: (3) Adjustment disorder with depressed mood: (4) Schizophrenia: (5) Inhalant abuse with intoxication: (6) Borderline intellectual functioning: (7) Impulse control disorder, unspecified: (8) Methamphetamine abuse in remission: Additional A&P Information This is a 34-year-old white male with a long history of schizophrenia/psychosis, addiction depression and anxiety who presents overwhelmed with the stressors of trying to maintain employment and the less than ideal working circumstances who endorses a desire to restart his medication. 1. Continue current medication. 2. Continue every 15 minute checks for safety. 3. Encourage individual, group and milieu therapies. 4. Encourage sober living treatment after discharge at the highest level of care to which he is willing to commit. Involuntary Hold Information 96 Hour Hold: 96 Hour Involuntary Admission: No Attestations NPU Medical Necessity Statement*: Inpatient hospitalization is medically necessary and the clinically appropriate intervention at this time. We will monitor medications and make changes as indicated. Likely length of stay 2-4 days. Coding Level of Care Code Acute [employer] Mdm Architect for Paul Small
[2020-06-01 20:23] VITALS: BP 123/72; PULSE 76; RESP 18; TEMP 36.9; O2SAT 98
[2020-06-01] MEDS: hyDROXYzine 25 mg Capsule 50 MG PO (21:51)
[2020-06-01] MEDS: trazodone 50 mg Tablet PO (21:51)
--- NOTE | 2020-06-01 21:53 | PC.NURSE ---
Patient requested vistril 50mg PO for anxiety ; Trazadone 50mg for sleep.
[2020-06-02 06:00] VITALS: BP 122/76; PULSE 84; RESP 15; TEMP 36.4; O2SAT 96
[2020-06-02] MEDS: ARIPiprazole 10 mg Tablet PO (10:11)
--- NOTE | 2020-06-02 11:33 | P.DS_ITS ---
Diagnoses at Discharge Discharge Diagnosis (1) Suicidal ideation: Status: Resolved (2) Depression: Status: Acute Qualifiers: Depression Type: unspecified Qualified Code(s): F32.9 - Major depressive disorder, single episode, unspecified (3) Adjustment disorder with depressed mood: Status: Acute (4) Schizophrenia: Status: Acute (5) Inhalant abuse with intoxication: Status: Acute (6) Borderline intellectual functioning: Status: Acute (7) Impulse control disorder, unspecified: Status: Acute (8) Methamphetamine abuse in remission: Status: Acute Reason for Visit Reason for Visit: Nervous/Stressed Brief History: History of Present Illness Jeremiah Power is a 34 year old male who presented to the emergency department with the following report: Chief Complaint: Psychiatric Symptoms Stated Complaint: Nervous/Stressed Time Seen by Provider: 05/30/20 11:43 Source: patient Mode of arrival: ambulatory Limitations: no limitations History of Present Illness: HPI Narrative: Patient is a 34-year-old male with a history of adjustment disorder with depression, schizophrenia, who has been off his psychiatric medications for about 2 months presents to the emergency department with suicidal ideation. He states that over the last few weeks he has been having increasing stress, he is homeless, he is out of work, while he was working everything he does was not right, and he feels he is under a lot of stress. He is having auditory hallucinations and having thoughts of suicide. He has no plan. He would like to be admitted to the neuropsychiatric unit for stabilization and commencement of his antipsychotics. MD complaint: suicidal ideation and feels depressed Onset (ago): day(s) Duration: constant History of same: Yes Relieving factors: none Exacerbating factors: none Context: not taking psychiatric medications Associated psychiatric symptoms: depression, suicidal ideation and auditory hallucinations Associated symptoms: Reports auditory hallucinations, depression and suicidal ideation Treatments prior to arrival: none If self harm: admits thoughts of self harm. He was admitted to the neuropsychiatric unit for definitive treatment of those issues. Jeremiah was an irritated historian as he often is not really wanting to answer questions and expressing frustration with each additional question. He reports that he has not been taking his medication for period time because when he takes his medication he is not able to work and he needs to work. The situation is made more challenging by the fact that he has 2 employers that he works for who seem to take advantage of his situation and under pay him and overworked him this lack of fair compensation leads to all kinds of challenges and stress. When questioned about how to fix this conundrum he reported a plan to restart his medication and identifying that may be work need to be secondary and his mental health and recovery need to be primary and that his drive to seek employment all the time may need to be less primary and possibly consider resources available given his condition. We discussed the risk benefits and alternatives of restarting Abilify and he understood and agreed to proceed as is documented in this note. We reviewed his previous notes and he denies substantive changes in his psychosocial circumstances. An excerpt of his last inpatient hospitalization is included below for context. [place] [facility] [place]: History of Present Illness Jeremiah Power is a 34 year old male who presented to the emergency room on a voluntary basis reporting suicidal ideation. The patient is not considered a reliable source of information. However he does tell a story where on the day of admission, he lost his job. He became despondent. He started hacking aerosols. It was discovered by his mother. He was kicked out of the house. He started having suicidal thoughts. He decided to come to the emergency room. When asked how we can help, he stated I want to go to rehab. He then became resistant to any further interview. To his credit, his urine drug screen was negative for amphetamines for the first time. Laboratory Tests 02/24/20 02/24/20 21:09 21:09 Urine Opiates Screen Negative Ur Barbiturates Screen Negative Ur Amphetamines Screen Negative U Benzodiazepines Scrn Negative Urine Cocaine Screen Negative U Marijuana (THC) Screen Negative Ethyl Alcohol 10 Emergency room physician note:HPI Narrative: 34 year old male who presents to the ED with suicidal ideation. He said his mother kicked him out of her house because she saw him sniffing on aerosol duster. He states that after that he tried to overdose on the same in a suicide attempt. He is here because he would like some help. Mental health history: He has 5 prior hospitalizations. First was in 08/08/2017 for 3 days, second was 08/19/2017 for 3 days and again in February 2018 for 3 days. Each time, for methamphetamine. Discharge planning on at least 2 of se sent him to [facility] for rehabilitation program. HE was again admitted on 07/26/2019 for five days after methamphetamine caused him to be psychotic. HE was again admitted on 01/08/2020 for 4 days with suicidal ideation under the influence of amphetamines. On the last two admissions, he responded to a combination of Abilify and abstinence. It should be noted that both of those admission were subsequent to his substance use that was initiated after a psychosocial stressor. HE has been non-compliant with outpatient care and he is evasive about whether he has been taking his medication. Review of Systems Narrative: Patient refused to participate in review of systems. Meds NPU Home Medications Medication Instructions Recorded Confirmed Last Taken Type aripiprazole [Abilify] 15 mg PO DAILY 30 Days #30 tab 01/12/20 02/24/20 02/23/20 Rx ibuprofen [IBU] 800 mg PO TID PRN #30 tab 01/21/20 02/24/20 Unknown Rx Allergies Allergy/AdvReac Type Severity Reaction Status Date / Time Penicillins Allergy Unknown Verified 10/06/19 17:50 PFS NPU PFSH: Medical History (Updated 02/25/20 @ 09:03 by Kris Oliver MD) Depressive disorder Methamphetamine dependence Social History (Reviewed 02/24/20 @ 22:53 by Reynaldo [place] [facility] [place] Smoking and tobacco status: current every day smoker Hospital Course Hospital Course Jeremiah presented to the emergency department endorsing suicidal thoughts, being off of his medication and overwhelmed with the psychosocial circumstances he found himself in. He was admitted to the neuropsychiatric unit for definitive treatment of those issues. He slowly acclimated to the individual, group and milieu therapies provided. He was significant struggling with balancing and need to work any productive with needing to be adherent to his medication prevents him from becoming psychotic. He endorsed a plan to focus on being on his medication and being well and agreed to Abilify being restarted at 10 mg p.o. every morning. He showed modest improvement and was able to contract for safety outside of the hospital. During the hospitalization, patient had routine laboratory studies which were within normal limits except for few outliers. Additionally there was a general medical evaluation which was also within normal limits and revealed no new acute processes. Discharge Summary: At the time of discharge, lethality was denied and psychosis was resolving. Mood and anxiety were well managed. Patient endorsed a plan to avoid all drugs of abuse and follow-up with the aftercare recommendations of the treatment team. Patient was evaluated and deemed to be absent credible lethality, and had achieved the maximum benefit from an inpatient hospitalization, so was discharged. Involuntary Hold Information 96 Hour Hold: 96 Hour Involuntary Admission: No Mental Status Exam MSE Comments: This is a well-nourished, well-developed white male in hospital scrubs with limited dress, grooming and eye contact. No abnormal movements except for resolving mild psychomotor retardation. Cooperative with exam in no acute distress. Speech was more normal rate and volume. Mood described as better, affect congruent. Thought process organized. Thought content: Patient denied suicidal or homicidal ideation. There are no delusions reported or noted, he denied any auditory or visual hallucinations. Attention and concentration were intact and memory appeared reliable but none were formally tested. He is alert and oriented x3. Insight and judgment are fair, impulse control is impaired, but improving. Discharge Data Vitals: Last Vital Signs Temp 97.5 F L 06/02/20 06:00 Pulse 84 06/02/20 06:00 Resp 15 06/02/20 06:00 BP 122/76 06/02/20 06:00 Pulse Ox 96 06/02/20 06:00 Discharge Plan Discharge Patient Disposition: Home Condition: Stable Prescriptions: New aripiprazole 10 mg Tablet 10 mg PO DAILY 30 Days Qty: 30 RF: 1 Continued ibuprofen [IBU] 800 mg tablet 800 mg PO TID PRN (Reason: pain) 30 Days Qty: 30 RF: 1 trazodone 50 mg Tablet 50 mg PO BEDTIME PRN (Reason: Sleep) 30 Days Qty: 30 RF: 1 Discontinued aripiprazole [Abilify] 15 mg Tablet 15 mg PO DAILY 30 Days Qty: 30 RF: 1 Discharge Orders: Discharge Order (Routine); Ordered 06/02/20 Ordered By: Tomi Hoyos [place] [facility] [facility] [place] Grace Peters DO [Physician] - 06/15/20 1:15 pm (New patient appointment with Dr. Peters at the [facility]. ) Discharge Diet: Regular Discharge Activity: Resume usual activity Patient Instructions: Aripiprazole (By mouth), Depression (DC) Discharge Attestations NPU Time Spent in Discharge Care*: less than 30 min Specific Discharge Activities: Specific discharge activities: educating patient, discussing with community case manager/social workers/dc planners, documenting/other paperwork and evaluating patient/reviewing data Coding Level of Care Code Acute Environmental Services Aide for g Fwd Diagnoses Suicidal ideation R45.851 Depression F32.9 Depression Type: unspecified Adjustment disorder with depressed mood F43.21 Schizophrenia F20.9 Inhalant abuse with intoxication F18.129 Borderline intellectual functioning R41.83 Impulse control disorder, unspecified F63.9 Methamphetamine abuse in remission F15.11
[2020-06-02 11:39] VITALS: BP 122/76; PULSE 84; RESP 15; TEMP 36.4; O2SAT 96
== END 2020-06-02 14:17 | disposition home or self-care (01) | DRG 881 ==
LOC: ER 13:23 → NP 13:26
PROVIDERS: Admitting Provider Psychiatry & Neurology Psychiatry; Emergency Provider Family Medicine; Visit Provider Psychiatry & Neurology Psychiatry
DX: F43.21 Adjustment disorder with depressed mood (principal); R45.851 Suicidal ideations; F20.9 Schizophrenia, unspecified; F63.9 Impulse disorder, unspecified; F15.11 Other stimulant abuse, in remission; F17.210 Nicotine dependence, cigarettes, uncomplicated
CPT/HCPCS: 36415; 80053; 80306; 80307; 81003; 84443; 85025; 99285

== ENCOUNTER 2020-06-10 21:21 | Emergency (ER) | payer MEDICAID, SELFPAY ==
[2020-06-10 21:24] VITALS: BP 118/71; PULSE 73; RESP 17; TEMP 36.6; O2SAT 99; BMI 25.8
--- NOTE | 2020-06-10 21:25 | ECG_ITS ---
[facility] Test Date: 2020-06-10 Pat Name: Jeremiah Power Department: Room: Gender: Male Prior Authorization Technician: : 1985 Requested By: Delfin Montano Order Number: [id number] Elke MD: Taty Lamas M.D. Measurements Intervals Connelly Rate: 68 P: 8 AL: 137 QRS: 29 QRSD: 89 T: 36 QT: 386 QTc: 411 Interpretive Statements SINUS RHYTHM Compared to ECG 01/08/2020 23:25:57 No significant changes Electronically Signed On 06-11-2020 23:47:34 CDT by Taty Lamas M.D. [id number]
[2020-06-10 21:30] VITALS: BP 132/75; PULSE 77; RESP 17; O2SAT 98
[2020-06-10 21:51] LABS: Basophils % 0.5 %; Eosinophils # 0.1 10^3/uL (0.0-0.8); Hematocrit 44.5 % (42.0-52.0); Hemoglobin 15.2 g/dL (11.7-16.6); Lymphocytes % 25.5 %; Mean Corpuscular HGB Conc 34.2 g/dL (30.0-36.0); Mean Corpuscular Hemoglobin 31.2 pg (28.0-34.0); Mean Corpuscular Volume 91.4 fL (80-94); Mean Platelet Volume 9.5 fL (7.4-10.4); Monocytes # 0.5 10^3/uL (0.2-0.9); Monocytes % 6.6 %; Neutrophils # 5.25 10^3/uL (1.8-7.7); Neutrophils % 66.1 %; Nucleated Red Blood Cells % 0 %; Platelet Count 262 10^3/cmm (130-400); Red Blood Count 4.87 10^6/uL (4.1-5.3); Red Cell Distribution Width 11.9 % (12.1-15.1); White Blood Count 7.9 10^3/uL (4.0-10.0)
[2020-06-10 22:02] VITALS: BP 118/71; PULSE 73; RESP 16; O2SAT 99
[2020-06-10 22:15] LABS: Alanine Aminotransferase 33 U/L (0-41); Albumin Level 3.9 g/dL (3.5-5.2); Alkaline Phosphatase 77 IU/L (40-130); Anion Gap 15.9 (5-19); Aspartate Amino Transferase 35 U/L (0-40); Blood Urea Nitrogen 8 mg/dL (6-20); Calcium 8.5 mg/dL (8.5-10.5); Carbon Dioxide 24 mmol/L (22-29); Chloride 103 mmol/L (98-107); Creatinine Clr Calc Pharmacy 116.4794; Globulin 2.4 g/dL (1.3-4.6); Glucose 86 mg/dL (65-115); Osmolality Calculated 286 mOsm/kg (285-295); Potassium 3.9 mmol/L (3.5-5.1); Sodium 139 mmol/L (136-145); Thyroid Stimulating Hormone 0.82 uIU/mL (0.27-4.20); Total Bilirubin 0.8 mg/dL (0.15-1.2); Total Protein 6.3 g/dL (6.6-8.7)
[2020-06-10 22:17] LABS: Acetaminophen < 5.0 ug/mL (10-30); Alcohol Level < 10 mg/dL (0-10); Salicylate < 0.3 mg/dL (3-10)
[2020-06-10 22:45] LABS: Add Urine Microscopic? NO
[2020-06-10 22:50] LABS: Bilirubin Urine 1+ (Negative); Blood Urine Neg (Negative); Glucose Urine UA Norm (Normal); Ketones Urine 2+ (Negative); Leukocyte Esterase Urine Negative (Negative); Nitrate Urine Negative (Negative); Protein Urine Neg (Negative); Specific Gravity, Urine 1.025 (1.005-1.030); Urine Appearance Clear (CLEAR); Urine Color Yellow (Yellow); Urobilinogen Urine 4 mg/dL (Negative); pH Urine 5 (5-7)
[2020-06-10 22:57] LABS: Amphetamines Screen Urine Positive (Negative); Barbiturates Screen Urine Negative (Negative); Benzodiazepines Screen Urine Negative (Negative); Cocaine Screen Urine Negative (Negative); Opiate Screen Urine Negative (Negative); PCP Screen Urine Negative (Negative); THC Screen Urine Positive (Negative)
--- NOTE | 2020-06-11 00:20 | ED_ITS ---
HPI - Psych General: Chief Complaint: Psychiatric Symptoms Stated Complaint: SI Time Seen by Provider: 06/10/20 21:25 History of Present Illness: HPI Narrative: The patient is a 34-year-old male with chronic schizophrenia and depression who comes to the ED for suicidal ideations. The report is he told the police and EMS he was suicidal. On arrival to the ED he says he smoked synthetic marijuana but feels fine and is absolutely not suicidal he said he did not have a coat and did not have anywhere to go so he told EMS he was suicidal. He says he is not suicidal and does not want to hurt himself at all and he never felt that way he just wanted to get out of the rain and he did not have a coat. He says he has chronic schizophrenia and hears voices but his voices are at their baseline and not telling him to do bad things. He would like food, a little rest, and to go home. He denies medical complaint. Associated symptoms: Deny depression, homicidal ideation or suicidal ideation Review of Systems General: Reports: 10 or more systems reviewed and unremarkable except in HPI and below Const: Denies: fatigue Eyes: Denies: change in vision, blurry vision or eye redness ENMT: Denies: throat pain, swelling of lips/tongue, ear or mastoid pain or nasal congestion Card: Denies: chest pain, palpitations, irregular heart rhythm, edema, dyspnea on exertion or orthopnea Resp: Denies: dyspnea, productive cough or non-productive cough GI: Denies: abdominal pain, diarrhea or GI cramping : Denies: flank pain, urinary frequency or urinary urgency Musc: Denies: neck pain, back pain, extremity pain, joint pain, joint redness, limited range of motion or muscle weakness Skin/Breast: Denies: rash, pruritus, erythema, skin pain or skin tenderness Neuro: Denies: headache(s), numbness in extremities, weakness in extremities, sensory changes, difficulty walking, dizziness, confusion or Slurred speech present Psych: Denies: anxiety, depression, suicidal ideation or homicidal ideation Endo: Denies: polyuria All/Imm: Denies: urticaria, throat swelling or tongue swelling PFS ED PFSH: Medical History (Updated 06/11/20 @ 00:18 by Delfin Montano MD) Depressive disorder Methamphetamine dependence Social History Smoking and tobacco status: current every day smoker cigarettes Packs smoked per day: 1 Alcohol intake: current Alcohol intake frequency: few times a month Physical Exam Const: COMMON NORMALS: no acute distress, average body habitus, patient oriented x3, no limitations, healthy appearing, alert and well nourished GENERAL APPEARANCE: cooperative, comfortable, well developed and disheveled ORIENTATION/CONSCIOUSNESS: Yes awake, Yes oriented to person, Yes oriented to place and Yes oriented to time HENMT: COMMON NORMALS: normocephalic, external ears normal and Normal external nose present HEAD & SCALP: normal to inspection and normocephalic NOSE: Normal external nose present EXTERNAL EAR: Yes external ears normal MOUTH: Normal oral and palatal mucosa present THROAT: posterior oropharynx normal Eye: COMMON NORMALS: Equal, round and reactive pupils present and EOMs intact bilaterally GENERAL EYE: appearance normal, both eyes and all related structures PUPIL: Yes Equal, round and reactive pupils present Neck/C-Spine: COMMON NORMALS: full ROM, no lymphadenopathy, no meningeal signs and no JVD GENERAL: Yes normal visual inspection Lymph: LYMPHATIC: no lymphadenopathy noted Chest: COMMONS NORMALS: normal inspection of the chest and normal palpation of entire chest wall Resp: COMMON NORMALS: normal respiratory effort, No retractions, No use of accessory muscles, clear to auscultation bilaterally and percussion normal EFFORT & INSPECTION: Yes able to speak in complete sentences AUSCULTATION: clear to auscultation bilaterally PERCUSSION: percussion normal Cardio: COMMON NORMALS: no JVD, regular rate, regular rhythm, S1 normal heart sound present, S2 normal heart sound present and Peripheral pulses 2+ throughout RATE: regular rate RHYTHM: regular rhythm HEART SOUNDS: S1 normal heart sound present and S2 normal heart sound present PERIPHERAL PULSES: Peripheral pulses 2+ throughout GI: COMMON NORMALS: Normal to inspection, nondistended, normoactive bowel sounds present, Soft to palpation, non-tender and no masses INSPECTION: Yes normal to inspection PALPATION: Yes Soft to palpation : COMMON NORMALS: Yes no CVA tenderness BLADDER/KIDNEY EXAM: Yes no CVA tenderness Back/Pelvis: COMMON NORMALS: no CVA tenderness, thoracic and lumbar spine normal to inspection, no thoracic nor lumbar tenderness and thoraco-lumbar ROM normal Extremity: COMMON NORMALS: normal to inspection, full ROM, capillary refill normal, no joint enlargement and no pedal edema GENERAL: Yes normal exam except as noted Neuro: COMMON NORMALS: patient oriented x3, CN's II-XII intact bilaterally, moves all extremities, no focal motor deficits, no sensory deficits noted and gait normal SENSORIUM/ORIENTATION: Yes alert, Yes oriented to person, Yes oriented to place and Yes oriented to time MENINGEAL SIGNS: Yes no meningeal signs Psych: COMMON NORMALS: mental status grossly normal, Normal thought process present, cooperative, normal affect and speech normal ATTITUDE: Yes calm SPEECH: Yes normal speech THOUGHT PROCESS: Normal thought process present THOUGHT CONTENT: No Suicidality present and No Homicidality present Skin: COMMON NORMALS: no rashes or lesions noted GENERAL SKIN EXAM: no rashes or lesions noted MDM - Psych MDM Narrative: Medical decision making narrative: He has eaten and slept. His labs are normal. Stable for discharge. He was malingering for a way to get out of the rain and he has no coat. He has a ride home in a safe place to stay. He is requesting discharge. Denies SI and HI. Chronic schizophrenia. Discussed with Dr. Feldman who agrees with plan of care Lab Data: Labs: Lab Results 06/10/20 06/10/20 06/10/20 Range/Units 20:46 20:46 22:30 WBC 7.9 (4.0-10.0) 10^3/ uL RBC 4.87 (4.1-5.3) 10^6/u L Hgb 15.2 (11.7-16.6) g/dL Hct 44.5 (42.0-52.0) % MCV 91.4 (80-94) fL MCH 31.2 (28.0-34.0) pg MCHC 34.2 (30.0-36.0) g/dL RDW 11.9 L (12.1-15.1) % Plt Count 262 (130-400) 10^3/c mm MPV 9.5 (7.4-10.4) fL Neut % (Auto) 66.1 % Lymph % (Auto) 25.5 % [place] % (Auto) 6.6 % Eos % (Auto) 1.0 % Baso % (Auto) 0.5 % Neut # (Auto) 5.25 (1.8-7.7) 10^3/u L Lymph # (Auto) 2.0 (0.8-4.8) 10^3/u L [place] # (Auto) 0.5 (0.2-0.9) 10^3/u L Eos # (Auto) 0.1 (0.0-0.8) 10^3/u L Baso # (Auto) 0.0 (0.0-0.1) 10^3/u L Nucleated RBC % (a uto) 0 % Nucleated RBCs # 0.0 /100WBC Sodium 139 (136-145) mmol/L Potassium 3.9 (3.5-5.1) mmol/L Chloride 103 (98-107) mmol/L Carbon Dioxide 24 (22-29) mmol/L Anion Gap 15.9 (5-19) BUN 8 (6-20) mg/dL Creatinine 0.9 (0.7-1.2) mg/dL GFR Calculation 96.0 (90-130) mL/min Glucose 86 (65-115) mg/dL Calculated Osmolal ity 286 (285-295) mOsm/k g Calcium 8.5 (8.5-10.5) mg/dL Total Bilirubin 0.8 (0.15-1.2) mg/dL AST 35 (0-40) U/L ALT 33 (0-41) U/L Alkaline Phosphata se 77 (40-130) IU/L Total Protein 6.3 L (6.6-8.7) g/dL Albumin 3.9 (3.5-5.2) g/dL Globulin 2.4 (1.3-4.6) g/dL TSH 0.82 (0.27-4.20) uIU/ mL Urine Color (Yellow) Urine Appearance (CLEAR) Urine pH (5-7) Ur Specific Gravit y (1.005-1.030) Urine Protein (Negative) Urine Glucose (UA) (Normal) Urine Ketones (Negative) Urine Blood (Negative) Urine Nitrate (Negative) Urine Bilirubin (Negative) Urine Urobilinogen (Negative) mg/dL Ur Leukocyte Leticia ase (Negative) Salicylates < 0.3 L (3-10) mg/dL Urine Opiates Scre en Negative (Negative) ng/mL Acetaminophen < 5.0 L (10-30) ug/mL Ur Barbiturates Sc reen Negative (Negative) ng/mL Ur Phencyclidine S crn Negative (Negative) ng/mL Ur Amphetamines Sc reen Positive H (Negative) ng/mL U Benzodiazepines Scrn Negative (Negative) ng/mL Urine Cocaine Scre en Negative (Negative) ng/mL U Marijuana (THC) Screen Positive H (Negative) ng/mL Ethyl Alcohol < 10 (0-10) mg/dL 06/10/20 Range/Units 22:30 WBC (4.0-10.0) 10^3/ uL RBC (4.1-5.3) 10^6/u L Hgb (11.7-16.6) g/dL Hct (42.0-52.0) % MCV (80-94) fL MCH (28.0-34.0) pg MCHC (30.0-36.0) g/dL RDW (12.1-15.1) % Plt Count (130-400) 10^3/c mm MPV (7.4-10.4) fL Neut % (Auto) % Lymph % (Auto) % [place] % (Auto) % Eos % (Auto) % Baso % (Auto) % Neut # (Auto) (1.8-7.7) 10^3/u L Lymph # (Auto) (0.8-4.8) 10^3/u L [place] # (Auto) (0.2-0.9) 10^3/u L Eos # (Auto) (0.0-0.8) 10^3/u L Baso # (Auto) (0.0-0.1) 10^3/u L Nucleated RBC % (a uto) % Nucleated RBCs # /100WBC Sodium (136-145) mmol/L Potassium (3.5-5.1) mmol/L Chloride (98-107) mmol/L Carbon Dioxide (22-29) mmol/L Anion Gap (5-19) BUN (6-20) mg/dL Creatinine (0.7-1.2) mg/dL GFR Calculation (90-130) mL/min Glucose (65-115) mg/dL Calculated Osmolal ity (285-295) mOsm/k g Calcium (8.5-10.5) mg/dL Total Bilirubin (0.15-1.2) mg/dL AST (0-40) U/L ALT (0-41) U/L Alkaline Phosphata se (40-130) IU/L Total Protein (6.6-8.7) g/dL Albumin (3.5-5.2) g/dL Globulin (1.3-4.6) g/dL TSH (0.27-4.20) uIU/ mL Urine Color Yellow (Yellow) Urine Appearance Clear (CLEAR) Urine pH 5 (5-7) Ur Specific Gravit y 1.025 (1.005-1.030) Urine Protein Neg (Negative) Urine Glucose (UA) Norm (Normal) Urine Ketones 2+ H (Negative) Urine Blood Neg (Negative) Urine Nitrate Negative (Negative) Urine Bilirubin 1+ H (Negative) Urine Urobilinogen 4 H (Negative) mg/dL Ur Leukocyte Leticia ase Negative (Negative) Salicylates (3-10) mg/dL Urine Opiates Scre en (Negative) ng/mL Acetaminophen (10-30) ug/mL Ur Barbiturates Sc reen (Negative) ng/mL Ur Phencyclidine S crn (Negative) ng/mL Ur Amphetamines Sc reen (Negative) ng/mL U Benzodiazepines Scrn (Negative) ng/mL Urine Cocaine Scre en (Negative) ng/mL U Marijuana (THC) Screen (Negative) ng/mL Ethyl Alcohol (0-10) mg/dL Discharge Plan Discharge Patient Disposition: Home Clinical Impression: Chronic schizophrenia, Malingering Condition: Stable Prescriptions: No Action ibuprofen [IBU] 800 mg tablet 800 mg PO TID PRN (Reason: pain) 30 Days Qty: 30 RF: 1 aripiprazole 10 mg Tablet 10 mg PO DAILY 30 Days Qty: 30 RF: 1 trazodone 50 mg Tablet 50 mg PO BEDTIME PRN (Reason: Sleep) 30 Days Qty: 30 RF: 1 Discharge Orders: Discharge ED (Routine); Ordered 06/11/20 Ordered By: Delfin Montano Patient Instructions: Schizophrenia (ED), Opioid Safety Activity Restrictions/Additional Instructions: Please follow-up with your mental health provider this week to discuss further and return to the ER with any thoughts of severe depression or harming yourself or someone else. Also return to the ER if your voices that you hear worsen or become cumbersome for you. Coding Level of Care Code ED Pharmacy Services Representative for Paul Small
[2020-06-11 00:48] VITALS: BP 145/89; PULSE 89; RESP 18; O2SAT 97
--- NOTE | 2020-06-11 00:50 | PC.NURSE ---
patient attempting to contact ride
--- NOTE | 2020-06-11 06:07 | PC.NURSE ---
patient still unable to reach a ride; I allowed him to sleep until now; will now discharge the patient to the waiting room where he will try to contact a ride. He is A&Ox5 GCS 15; voiced understanding.
[2020-06-11 06:08] VITALS: BP 122/80; PULSE 67; RESP 18; O2SAT 98
== END 2020-06-11 06:13 | disposition home or self-care (01) ==
PROVIDERS: Emergency Provider Family Medicine
DX: F20.9 Schizophrenia, unspecified (principal); Z76.5 Malingerer [conscious simulation]; F17.210 Nicotine dependence, cigarettes, uncomplicated
CPT/HCPCS: 80053; 80306; 80307; 81003; 84443; 85025; 93005; 99283

== ENCOUNTER 2020-06-13 05:04 | Observation (INO) | payer MEDICAID, SELFPAY ==
[2020-06-13 05:06] VITALS: BP 112/62; PULSE 63; RESP 16; TEMP 36.7; O2SAT 99; BMI 27.0
--- NOTE | 2020-06-13 05:08 | ECG_ITS ---
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
--- NOTE | 2020-06-13 05:10 | ED_ITS ---
HPI - General Adult General: Chief complaint: Psychiatric Symptoms Stated complaint: SI Time Seen by Provider: 06/13/20 05:06 Source: patient, family and RN notes reviewed Limitations: no limitations History of Present Illness: HPI narrative: This patient is a 34-year-old male with a history of chronic schizophrenia presents to the emergency department voicing suicidal ideation. Patient was recently admitted to the hospital in the [facility] for severe depression and is adjustment disorder. Patient recently got asked to leave the place he was staying. Questionable whether he has been taking his medicines or not. Patient called the ambulance on himself requesting to be placed inpatient due to suicidal thoughts. Will do medical evaluation treat as needed Onset (ago): day(s) (5) Pain Consistency: intermittent Associated symptoms: Deny chest pain, dyspnea, headache(s), nausea, rash, palpitations or vomiting Review of Systems General: Reports: 10 or more systems reviewed and unremarkable except in HPI and below Const: Denies: fever(s), chills, body aches or fatigue Eyes: Denies: change in vision or blurry vision ENMT: Denies: throat pain, hoarseness or mouth pain Card: Denies: chest pain, palpitations, irregular heart rhythm, edema, swelling of feet/ankles or lightheadedness Resp: Denies: dyspnea, productive cough, non-productive cough, wheezing or pain on inspiration GI: Reports: abdominal pain; Denies: nausea or vomiting : Reports: flank pain; Denies: dysuria, urinary frequency, urinary urgency or urinary hesitancy Musc: Denies: neck pain, back pain, extremity pain, extremity swelling, joint pain, joint swelling, joint redness, joint warmth or limited range of motion Skin/Breast: Denies: rash, pruritus, erythema or skin tenderness Neuro: Denies: headache(s), numbness in extremities or weakness in extremities Psych: Reports: suicidal ideation; Denies: anxiety or depression PFSH ED PFSH: Medical History (Updated 06/13/20 @ 05:53 by Domenic Henning MD) Depressive disorder Methamphetamine dependence Social History Smoking and tobacco status: current every day smoker cigarettes Packs smoked per day: 1 Alcohol intake: current Alcohol intake frequency: few times a month Physical Exam Const: COMMON NORMALS: no acute distress, average body habitus, patient oriented x3, no limitations, healthy appearing, alert and well nourished HENMT: COMMON NORMALS: normocephalic, atraumatic, external ears normal, EAC's normal, TM's normal bilaterally, Normal external nose present and Normal nasal mucous membranes and turbinates present HEAD & SCALP: normocephalic and atr aumatic NOSE: Normal external nose present and Normal nasal mucous membranes and turbinates present EXTERNAL EAR: Yes external ears normal EXTERNAL AUDITORY CANAL: EAC's normal TYMPANIC MEMBRANE: TM's normal bilaterally Neck/C-Spine: COMMON NORMALS: full ROM, no lymphadenopathy, supple, no meningeal signs, no JVD, Thyroid normal and No carotid bruits THYROID: Thyroid normal Chest: COMMONS NORMALS: normal inspection of the chest, normal palpation of entire chest wall, normal inspection of the breasts and normal palpation of the breasts Breast/axilla inspection: Yes normal inspection of the breasts BREAST/AXILLA PALPATION: Yes normal palpation of the breasts Resp: COMMON NORMALS: normal respiratory effort, No retractions, No use of accessory muscles, clear to auscultation bilaterally and percussion normal AUSCULTATION: clear to auscultation bilaterally PERCUSSION: percussion normal Cardio: COMMON NORMALS: no JVD, regular rate, regular rhythm, S1 normal heart sound present, S2 normal heart sound present, No gallops present (Cardio), No clicks present (Cardio), No murmurs present (Cardio), No rub (Cardio) and Peripheral pulses 2+ throughout RATE: regular rate RHYTHM: regular rhythm HEART SOUNDS: S1 normal heart sound present and S2 normal heart sound present PERIPHERAL PULSES: Peripheral pulses 2+ throughout GI: COMMON NORMALS: Normal to inspection, nondistended, normoactive bowel sounds present, Soft to palpation, non-tender, No hepatosplenomegaly present, no masses and no bruits PALPATION: Yes Soft to palpation and Yes No hepatosplenomegaly present : COMMON NORMALS: Yes no CVA tenderness BLADDER/KIDNEY EXAM: Yes no CVA tenderness Back/Pelvis: COMMON NORMALS: no CVA tenderness, thoracic and lumbar spine normal to inspection, no thoracic nor lumbar tenderness, thoraco-lumbar ROM normal and straight leg raise negative bilaterally Extremity: COMMON NORMALS: normal to inspection, full ROM, capillary refill normal, no joint enlargement, no clubbing, cyanosis or edema, no calf tenderness and no pedal edema Neuro: COMMON NORMALS: patient oriented x3 SENSORIUM/ORIENTATION: Yes alert MENINGEAL SIGNS: Yes no meningeal signs Psych: COMMON NORMALS: cooperative ATTITUDE: Yes calm OTHER: Patient voices suicidal ideation is up he wants to jump off a bridge. Course Reevaluation(s): Reevaluation #1: Patient is calm and following directions. Time: 05:52 Consultations: Consultation #1: He is accepted this patient for admission. He will see patient write additional orders. Time: 05:52 Vital Signs: Vital signs: Vital Signs Temperature 98.0 F 06/13/20 05:06 Pulse Rate 63 06/13/20 05:06 Respiratory Rate 16 06/13/20 05:06 Blood Pressure 112/62 06/13/20 05:06 Pulse Oximetry 99 06/13/20 05:06 MDM - General Adult Differential Diagnosis: Differential Diagnosis: Suicidal ideation, chronic s chizophrenia, adjustment disorder, bipolar disorder, drug abuse, Medical Records: Attestation: I reviewed the patient's medical records. Lab Data: Attestation: I reviewed the patient's lab results. Labs: Lab Results 06/13/20 06/13/20 06/13/20 Range/Units 05:08 05:10 05:10 WBC 8.0 (4.0-10.0) 10^3/ uL RBC 4.83 (4.1-5.3) 10^6/u L Hgb 15.3 (11.7-16.6) g/dL Hct 44.2 (42.0-52.0) % MCV 91.5 (80-94) fL MCH 31.7 (28.0-34.0) pg MCHC 34.6 (30.0-36.0) g/dL RDW 11.9 L (12.1-15.1) % Plt Count 299 (130-400) 10^3/c mm MPV 10.1 (7.4-10.4) fL Neut % (Auto) 47.4 % Lymph % (Auto) 44.1 % [place] % (Auto) 6.3 % Eos % (Auto) 1.3 % Baso % (Auto) 0.8 % Neut # (Auto) 3.79 (1.8-7.7) 10^3/u L Lymph # (Auto) 3.5 (0.8-4.8) 10^3/u L [place] # (Auto) 0.5 (0.2-0.9) 10^3/u L Eos # (Auto) 0.1 (0.0-0.8) 10^3/u L Baso # (Auto) 0.1 (0.0-0.1) 10^3/u L Nucleated RBC % (a uto) 0 % Nucleated RBCs # 0.0 /100WBC Urine Color Yellow (Yellow) Urine Appearance Clear (CLEAR) Urine pH 7 (5-7) Ur Specific Gravit y 1.000 L (1.005-1.030) Urine Protein Neg (Negative) Urine Glucose (UA) Norm (Normal) Urine Ketones Negative (Negative) Urine Blood Neg (Negative) Urine Nitrate Negative (Negative) Urine Bilirubin Neg (Negative) Urine Urobilinogen Norm (Negative) mg/dL Ur Leukocyte Leticia ase Negative (Negative) Urine Opiates Scre en Negative (Negative) ng/mL Ur Barbiturates Sc reen Negative (Negative) ng/mL Ur Phencyclidine S crn Negative (Negative) ng/mL Ur Amphetamines Sc reen Negative (Negative) ng/mL U Benzodiazepines Scrn Negative (Negative) ng/mL Urine Cocaine Scre en Negative (Negative) ng/mL U Marijuana (THC) Screen Negative (Negative) ng/mL EKG Data^: EKG 1: Attestation: I personally reviewed and interpreted this EKG as follows: EKG interpretation date: 06/13/20 EKG interpretation time: 05:24 Prior EKG tracings: available for review Interpretation: Sinus bradycardia rate 57?normal EKG Discharge Plan Discharge Clinical Impression: Suicidal ideations, Adjustment disorder with depressed mood Condition: Stable Prescriptions: No Action ibuprofen [IBU] 800 mg tablet 800 mg PO TID PRN (Reason: pain) 30 Days Qty: 30 RF: 1 aripiprazole 10 mg Tablet 10 mg PO DAILY 30 Days Qty: 30 RF: 1 trazodone 50 mg Tablet 50 mg PO BEDTIME PRN (Reason: Sleep) 30 Days Qty: 30 RF: 1 Coding Level of Care Code ED Senior Care Manager for g Fwd Exam Comprehensive
[2020-06-13 05:32] LABS: Basophils # 0.1 10^3/uL (0.0-0.1); Basophils % 0.8 %; Eosinophils # 0.1 10^3/uL (0.0-0.8); Eosinophils % 1.3 %; Hematocrit 44.2 % (42.0-52.0); Hemoglobin 15.3 g/dL (11.7-16.6); Lymphocytes # 3.5 10^3/uL (0.8-4.8); Lymphocytes % 44.1 %; Mean Corpuscular HGB Conc 34.6 g/dL (30.0-36.0); Mean Corpuscular Hemoglobin 31.7 pg (28.0-34.0); Mean Corpuscular Volume 91.5 fL (80-94); Mean Platelet Volume 10.1 fL (7.4-10.4); Monocytes # 0.5 10^3/uL (0.2-0.9); Monocytes % 6.3 %; Neutrophils # 3.79 10^3/uL (1.8-7.7); Neutrophils % 47.4 %; Nucleated Red Blood Cells % 0 %; Platelet Count 299 10^3/cmm (130-400); Red Blood Count 4.83 10^6/uL (4.1-5.3); Red Cell Distribution Width 11.9 % (12.1-15.1)
[2020-06-13 05:37] LABS: Add Urine Microscopic? NO
[2020-06-13 05:39] LABS: Bilirubin Urine Neg (Negative); Blood Urine Neg (Negative); Glucose Urine UA Norm (Normal); Ketones Urine Negative (Negative); Leukocyte Esterase Urine Negative (Negative); Nitrate Urine Negative (Negative); Protein Urine Neg (Negative); Urine Appearance Clear (CLEAR); Urine Color Yellow (Yellow); Urobilinogen Urine Norm (Negative); pH Urine 7 (5-7)
[2020-06-13 05:48] LABS: Amphetamines Screen Urine Negative (Negative); Barbiturates Screen Urine Negative (Negative); Benzodiazepines Screen Urine Negative (Negative); Cocaine Screen Urine Negative (Negative); Opiate Screen Urine Negative (Negative); PCP Screen Urine Negative (Negative); THC Screen Urine Negative (Negative)
[2020-06-13 05:54] LABS: Alanine Aminotransferase 69 U/L (0-41); Albumin Level 4.2 g/dL (3.5-5.2); Alkaline Phosphatase 79 IU/L (40-130); Anion Gap 11.5 (5-19); Aspartate Amino Transferase 44 U/L (0-40); Blood Urea Nitrogen 5 mg/dL (6-20); Calcium 8.9 mg/dL (8.5-10.5); Carbon Dioxide 29 mmol/L (22-29); Chloride 102 mmol/L (98-107); Globulin 2.5 g/dL (1.3-4.6); Glucose 95 mg/dL (65-115); Osmolality Calculated 285 mOsm/kg (285-295); Potassium 3.5 mmol/L (3.5-5.1); Sodium 139 mmol/L (136-145); Total Bilirubin 0.4 mg/dL (0.15-1.2); Total Protein 6.7 g/dL (6.6-8.7)
[2020-06-13 06:09] LABS: Acetaminophen < 5.0 ug/mL (10-30); Alcohol Level < 10 mg/dL (0-10); Salicylate < 0.3 mg/dL (3-10)
[2020-06-13 06:16] VITALS: BP 121/79; PULSE 67; RESP 17; O2SAT 98
[2020-06-13 06:19] VITALS: BP 136/78; PULSE 76; RESP 20; TEMP 36.7; O2SAT 99
--- NOTE | 2020-06-13 06:38 | PC.NURSE ---
Skin check revealed no wounds or injuries.
[2020-06-13 13:44] VITALS: BP 136/78; PULSE 76; RESP 20; TEMP 36.7; O2SAT 99
[2020-06-13 14:00] VITALS: RESP 18
--- NOTE | 2020-06-13 14:40 | P.SS_ITS ---
Short Stay Summary Providers Date of Admit/Discharge: 06/13/20 Attending Provider: Evelyne Feldman DO Chief Complaint: SI HPI History of Present Illness Jeremiah Power is a 34 year old male with a history of malingering, methamphetamine abuse, schizophrenia presenting to the emergency department stating that he was feeling suicidal because he did not have a place to go and did not have any protection from the rain. Patient is currently uncooperative with interview, somewhat irritable, providing brief responses to questions stating that he has been kicked out of her friend's house and has no place to go and that he cannot leave the hospital because he is homeless. Emergency department work-up is unremarkable, negative urine drug screen. Per chart review, patient has been noncompliant with medication as well as medication management follow-up after previous hospitalizations and has typically sought hospitalization in the context of unstable living situation. Does not participate in interview or answering questions with regards to psychiatric review of systems. Review of Systems General: Reports: Other (Does not participate in interview) Home Meds/Allergies Home Medications and Allergies Allergies Allergy/AdvReac Type Severity Reaction Status Date / Time Penicillins Allergy Unknown Verified 06/13/20 05:06 PFSH Acute PFSH: Medical History Depressive disorder Methamphetamine dependence Social History Smoking and tobacco status: current every day smoker cigarettes Packs smoked per day: 1 Alcohol intake: current Alcohol intake frequency: few times a month Vitals/I&O/Wt Last Vital Signs Temp 98.1 F 06/13/20 13:44 Pulse 76 06/13/20 13:44 Resp 20 H 06/13/20 13:44 BP 136/78 06/13/20 13:44 Pulse Ox 99 06/13/20 13:44 Weight last 48 hrs Weight 80.739 kg Physical Exam Narrative: EXAM NARRATIVE: MSE: Appears older than stated age, unshaven, tired appearing, lying in bed, rolled over, poor eye contact, irritable, uncooperative Psychomotor activity is neither increased nor decreased, no agitation Speech is normal volume, normal rate, not pressured I am upset, congruent affect, not labile Alert and oriented to person, place, time, situation Memory and concentration are difficult to assess given lack of participation in interview but appears to be fair per chart review Unable to fully assess intellectual functioning but appears to be average based on vocabulary, interview Thought process, organized, linear but brief, no flight of ideas, no looseness of associations Thought content, no stated delusions, does not appear to be attending to any internal stimuli and does not appear to be internally preoccupied, no suicidal or homicidal ideation although patient subsequently reports having suicidal thoughts after being told that he would be discharging today Insight and judgment appear to be fair at best Hospital Course Hospital Course Patient with multiple presentations to the emergency department in the context of unstable living arrangement endorsing suicidal ideation for the purpose of seeking hospitalization secondary to poor weather with subsequent poor compliance with follow-up care currently presenting under similar conditions stating that he cannot leave the hospital because it is raining outside. Patient's clinical picture compounded by intermittent use of illicit drugs to include methamphetamine. Patient was irritable and minimally participative in interview with his only goal being to stay in the hospital for purpose of half-way. Discussed need to coordinate with social services designee with regards to potential alternatives for living arrangement as well as need for compliance with follow-up care and abstinence from substances. Low to moderate risk of harm to self given no current suicidal ideation although patient intermittently reports passive suicidal ideation in the context of seeking hospitalization for half-way although patient's risk may be elevated if he continues to abuse substances and is noncompliant with follow-up care leading to unexpected, impulsive behavior. Risk mitigation included observation for any return of suicidal ideation or behavior, recommendation to abstain from the use of substances and alcohol, coordination for post discharge follow-up care. Patient was able to indicate his understanding of the need to abstain from the use of substances and alcohol as well as the need for being compliant with follow-up care in order to further mitigate his risk of harm to self and others. Diagnoses at Discharge Discharge Diagnosis (1) Adjustment disorder with depressed mood: Status: Acute (2) Malingering: Status: Acute Discharge Plan Discharge Patient Disposition: Home Condition: Stable Discharge Orders: Discharge Order (Routine); Ordered 06/13/20 Ordered By: Evelyne Feldman Referrals: [facility] [Outside] (Intake assessment completed during previous hospitalization. They will contact you for an assessment date once paperwork is processed.) [facility] [Outside] (local homeless half-way. Will need to go to financial planning advisor department for a warrant check prior to arrival.) Grace Peters DO [Physician] - 06/15/20 1:15 pm (To establish primary care, hospital follow up) Discharge Diet: Regular Discharge Activity: Resume usual activity Patient Instructions: Depression (DC), Schizophrenia (DC), Suicide Prevention for Adults (DC) Attestations Medical Necessity Statement*: Least restrictive level of care at this time is outpatient medication management and counseling. Time Spent in Patient Care*: greater than 30 min Status at Discharge: Cognitive status at discharge: cognitively intact , Behavioral status at discharge: can be uncooperative , Functional status at discharge: independent ambulation Overall status at discharge: patient is back to baseline Quality Metrics Clinical Quality Measures: During this hospital stay, did patient experience: None Coding Level of Care Code Acute Courseware Developer for Paul Fwd Diagnoses Adjustment disorder with depressed mood F43.21 Malingering Z76.5
== END 2020-06-13 17:45 | disposition home or self-care (01) ==
LOC: ER 06:06 → NP 06:08
PROVIDERS: Admitting Provider Psychiatry & Neurology Psychiatry; Emergency Provider Emergency Medicine; Visit Provider Psychiatry & Neurology Psychiatry
DX: F43.21 Adjustment disorder with depressed mood (principal); Z76.5 Malingerer [conscious simulation]; F17.210 Nicotine dependence, cigarettes, uncomplicated
CPT/HCPCS: 80053; 80306; 80307; 81003; 85025; 93005; 96361; 96374; 96375; 99284; 99285; G0378

== ENCOUNTER 2020-07-09 00:48 | Inpatient (IN) | payer MEDICAID, SELFPAY ==
[2020-07-09 00:56] VITALS: BP 150/90; PULSE 92; RESP 18; TEMP 36.5; O2SAT 98; BMI 29.0
[2020-07-09 01:29] LABS: Basophils # 0.1 10^3/uL (0.0-0.1); Basophils % 0.5 %; Eosinophils # 0.1 10^3/uL (0.0-0.8); Eosinophils % 1.2 %; Hematocrit 48.6 % (42.0-52.0); Hemoglobin 16.2 g/dL (11.7-16.6); Lymphocytes # 3.7 10^3/uL (0.8-4.8); Lymphocytes % 38.9 %; Mean Corpuscular HGB Conc 33.3 g/dL (30.0-36.0); Mean Corpuscular Hemoglobin 30.5 pg (28.0-34.0); Mean Corpuscular Volume 91.4 fL (80-94); Mean Platelet Volume 9.6 fL (7.4-10.4); Monocytes # 0.6 10^3/uL (0.2-0.9); Monocytes % 6.5 %; Neutrophils # 4.99 10^3/uL (1.8-7.7); Neutrophils % 52.6 %; Nucleated Red Blood Cells % 0 %; Platelet Count 267 10^3/cmm (130-400); Red Blood Count 5.32 10^6/uL (4.1-5.3); Red Cell Distribution Width 12.2 % (12.1-15.1); White Blood Count 9.5 10^3/uL (4.0-10.0)
[2020-07-09 01:41] LABS: Alanine Aminotransferase 36 U/L (0-41); Albumin Level 4.1 g/dL (3.5-5.2); Alkaline Phosphatase 83 IU/L (40-130); Anion Gap 12.8 (5-19); Aspartate Amino Transferase 17 U/L (0-40); Blood Urea Nitrogen 12 mg/dL (6-20); Calcium 8.6 mg/dL (8.5-10.5); Carbon Dioxide 24 mmol/L (22-29); Chloride 105 mmol/L (98-107); Creatinine Clr Calc Pharmacy 103.4524; Globulin 2.1 g/dL (1.3-4.6); Glucose 94 mg/dL (65-115); Osmolality Calculated 286 mOsm/kg (285-295); Potassium 3.8 mmol/L (3.5-5.1); Sodium 138 mmol/L (136-145); Total Bilirubin 0.4 mg/dL (0.15-1.2); Total Protein 6.2 g/dL (6.6-8.7)
[2020-07-09 01:58] LABS: Acetaminophen < 5.0 ug/mL (10-30); Alcohol Level < 10 mg/dL (0-10); Salicylate < 0.3 mg/dL (3-10)
--- NOTE | 2020-07-09 02:51 | W.ED.PSYCH ---
HPI - Psych General: Chief Complaint: Psychiatric Symptoms Stated Complaint: si Time Seen by Provider: 07/09/20 00:57 History of Present Illness: HPI Narrative: Isael is a 34-year-old male known to the ER. He has a history of psychosis, substance abuse, and some malingering due to unstable living conditions. Evidently, police found him naked lying in a [place] behind the [facility]. He was exhibiting some bizarre behavior. He told police God and Deon told him to do it. EMS was called, and brought the patient here willingly. He denies suicidal ideation or homicidal ideation. MD complaint: other Onset (ago): hour(s) Duration: constant History of same: Yes Relieving factors: none Exacerbating factors: none Context: not taking psychiatric medications Associated psychiatric symptoms: depression and auditory hallucinations Associated symptoms: Reports auditory hallucinations Review of Systems Const: Denies: fever(s) Eyes: Denies: change in vision ENMT: Denies: odynophagia or sinus pain Card: Denies: chest pain or palpitations Resp: Denies: dyspnea, productive cough or non-productive cough GI: Denies: abdominal pain, nausea or vomiting : Denies: difficulty urinating or hematuria Musc: Denies: neck pain Skin/Breast: Denies: rash or erythema Neuro: Denies: headache(s), dizziness, vertigo, confusion or seizure-like activity Psych: Reports: auditory hallucinations; Denies: anxiety [facility] ED PFSH: Medical History (Updated 07/09/20 @ 03:27 by Rajesh Claudio DO) Alcohol dependence, in remission Borderline intellectual functioning Cannabis dependence, in remission Cigarette nicotine dependence without complication Depressive disorder Major depressive disorder, recurrent, severe with psychotic symptoms Methamphetamine dependence Other stimulant dependence, in remission Social History Smoking and tobacco status: current every day smoker cigarettes Packs smoked per day: 1 Alcohol intake: current Alcohol intake frequency: few times a month Physical Exam Const: GENERAL APPEARANCE: cooperative and disheveled ORIENTATION/CONSCIOUSNESS: Yes oriented to person and Yes oriented to place HENMT: COMMON NORMALS: normocephalic, external ears normal and Normal external nose present HEAD & SCALP: normocephalic FACE & SINUS: normal facial exam NOSE: Normal external nose present and No nasal discharge present EXTERNAL EAR: Yes external ears normal Eye: COMMON NORMALS: Equal, round and reactive pupils present, EOMs intact bilaterally and conjunctivae normal EYELID: eyelids normal CONJUNCTIVA: Yes conjunctivae normal PUPIL: Yes Equal, round and reactive pupils present Neck/C-Spine: GENERAL: No tracheal deviation Chest: COMMONS NORMALS: normal inspection of the chest CHEST: No tenderness Resp: COMMON NORMALS: clear to auscultation bilaterally EFFORT & INSPECTION: No tachypneic, No respiratory distress, No retractions, No uses accessory muscles and No tracheal deviation AUSCULTATION: clear to auscultation bilaterally, no rhonchi, no wheezes and lung sounds not diminished Cardio: COMMON NORMALS: regular rate and regular rhythm RATE: regular rate RHYTHM: regular rhythm HEART SOUNDS: no murmurs PERIPHERAL PULSES: radial pulses present GI: INSPECTION: No abdominal distension AUSCULTATION: No Hyperactive bowel sounds present and No Hypoactive bowel sounds present PALPATION: No Guarding due to palpation present (GI) and No Rigid due to palpation PERCUSSION: no dullness to percussion and no tympanic to percussion Neuro: SENSORIUM/ORIENTATION: Yes oriented to person and Yes oriented to place Psych: COMMON NORMALS: cooperative, speech normal, denies homicidal ideation and denies suicidal ideation APPEARANCE: Yes unkempt ATTITUDE: Yes calm ACTIVITY/MOTOR BEHAVIOR: Yes disorganized behavior SPEECH: Yes normal speech MOOD & AFFECT: Yes depressed mood THOUGHT PROCESS: disorganized THOUGHT CONTENT: No Suicidality present, No Homicidality present and Yes Hallucination(s) present ATTENTION/CONCENTRATION: Yes attention grossly intact and Yes concentration grossly impaired INSIGHT: questionable Skin: COMMON NORMALS: no rashes or lesions noted GENERAL SKIN EXAM: no rashes or lesions noted MDM - Psych MDM Narrative: Medical decision making narrative: Are benign urine drug screen and alcohol are negative. Spoke with psychiatry. They agree bizarre presentation with likely psychosis, will admit to NPU for further evaluation. Lab Data: Labs: Lab Results 07/09/20 07/09/20 07/09/20 Range/Units 01:11 01:11 02:17 WBC 9.5 (4.0-10.0) 10^3/ uL RBC 5.32 H (4.1-5.3) 10^6/u L Hgb 16.2 (11.7-16.6) g/dL Hct 48.6 (42.0-52.0) % MCV 91.4 (80-94) fL MCH 30.5 (28.0-34.0) pg MCHC 33.3 (30.0-36.0) g/dL RDW 12.2 (12.1-15.1) % Plt Count 267 (130-400) 10^3/c mm MPV 9.6 (7.4-10.4) fL Neut % (Auto) 52.6 % Lymph % (Auto) 38.9 % [place] % (Auto) 6.5 % Eos % (Auto) 1.2 % Baso % (Auto) 0.5 % Neut # (Auto) 4.99 (1.8-7.7) 10^3/u L Lymph # (Auto) 3.7 (0.8-4.8) 10^3/u L [place] # (Auto) 0.6 (0.2-0.9) 10^3/u L Eos # (Auto) 0.1 (0.0-0.8) 10^3/u L Baso # (Auto) 0.1 (0.0-0.1) 10^3/u L Nucleated RBC % (a uto) 0 % Nucleated RBCs # 0.0 /100WBC Sodium 138 (136-145) mmol/L Potassium 3.8 (3.5-5.1) mmol/L Chloride 105 (98-107) mmol/L Carbon Dioxide 24 (22-29) mmol/L Anion Gap 12.8 (5-19) BUN 12 (6-20) mg/dL Creatinine 1.0 (0.7-1.2) mg/dL GFR Calculation 85.0 L (90-130) mL/min Glucose 94 (65-115) mg/dL Calculated Osmolal ity 286 (285-295) mOsm/k g Calcium 8.6 (8.5-10.5) mg/dL Total Bilirubin 0.4 (0.15-1.2) mg/dL AST 17 (0-40) U/L ALT 36 (0-41) U/L Alkaline Phosphata se 83 (40-130) IU/L Total Protein 6.2 L (6.6-8.7) g/dL Albumin 4.1 (3.5-5.2) g/dL Globulin 2.1 (1.3-4.6) g/dL Urine Color Yellow (Yellow) Urine Appearance Clear (CLEAR) Urine pH 5 (5-7) Ur Specific Gravit y 1.015 (1.005-1.030) Urine Protein Neg (Negative) Urine Glucose (UA) Norm (Normal) Urine Ketones Negative (Negative) Urine Blood Neg (Negative) Urine Nitrate Negative (Negative) Urine Bilirubin Neg (Negative) Urine Urobilinogen Norm (Negative) mg/dL Ur Leukocyte Leticia ase Negative (Negative) Urine RBC 0-4 H (0-2) /hpf Urine WBC 0-4 H (0-5) /hpf Ur Squamous Epith Cells 0-4 H (0-5) /hpf Amorphous Sediment Not Reportable Urine Bacteria Trace (NONE) /hpf Salicylates < 0.3 L (3-10) mg/dL Urine Opiates Scre en (Negative) ng/mL Acetaminophen < 5.0 L (10-30) ug/mL Ur Barbiturates Sc reen (Negative) ng/mL Ur Phencyclidine S crn (Negative) ng/mL Ur Amphetamines Sc reen (Negative) ng/mL U Benzodiazepines Scrn (Negative) ng/mL Urine Cocaine Scre en (Negative) ng/mL U Marijuana (THC) Screen (Negative) ng/mL Ethyl Alcohol < 10 (0-10) mg/dL 07/09/20 Range/Units 02:17 WBC (4.0-10.0) 10^3/ uL RBC (4.1-5.3) 10^6/u L Hgb (11.7-16.6) g/dL Hct (42.0-52.0) % MCV (80-94) fL MCH (28.0-34.0) pg MCHC (30.0-36.0) g/dL RDW (12.1-15.1) % Plt Count (130-400) 10^3/c mm MPV (7.4-10.4) fL Neut % (Auto) % Lymph % (Auto) % [place] % (Auto) % Eos % (Auto) % Baso % (Auto) % Neut # (Auto) (1.8-7.7) 10^3/u L Lymph # (Auto) (0.8-4.8) 10^3/u L [place] # (Auto) (0.2-0.9) 10^3/u L Eos # (Auto) (0.0-0.8) 10^3/u L Baso # (Auto) (0.0-0.1) 10^3/u L Nucleated RBC % (a uto) % Nucleated RBCs # /100WBC Sodium (136-145) mmol/L Potassium (3.5-5.1) mmol/L Chloride (98-107) mmol/L Carbon Dioxide (22-29) mmol/L Anion Gap (5-19) BUN (6-20) mg/dL Creatinine (0.7-1.2) mg/dL GFR Calculation (90-130) mL/min Glucose (65-115) mg/dL Calculated Osmolal ity (285-295) mOsm/k g Calcium (8.5-10.5) mg/dL Total Bilirubin (0.15-1.2) mg/dL AST (0-40) U/L ALT (0-41) U/L Alkaline Phosphata se (40-130) IU/L Total Protein (6.6-8.7) g/dL Albumin (3.5-5.2) g/dL Globulin (1.3-4.6) g/dL Urine Color (Yellow) Urine Appearance (CLEAR) Urine pH (5-7) Ur Specific Gravit y (1.005-1.030) Urine Protein (Negative) Urine Glucose (UA) (Normal) Urine Ketones (Negative) Urine Blood (Negative) Urine Nitrate (Negative) Urine Bilirubin (Negative) Urine Urobilinogen (Negative) mg/dL Ur Leukocyte Leticia ase (Negative) Urine RBC (0-2) /hpf Urine WBC (0-5) /hpf Ur Squamous Epith Cells (0-5) /hpf Amorphous Sediment Urine Bacteria (NONE) /hpf Salicylates (3-10) mg/dL Urine Opiates Scre en Negative (Negative) ng/mL Acetaminophen (10-30) ug/mL Ur Barbiturates Sc reen Negative (Negative) ng/mL Ur Phencyclidine S crn Negative (Negative) ng/mL Ur Amphetamines Sc reen Negative (Negative) ng/mL U Benzodiazepines Scrn Negative (Negative) ng/mL Urine Cocaine Scre en Negative (Negative) ng/mL U Marijuana (THC) Screen Negative (Negative) ng/mL Ethyl Alcohol (0-10) mg/dL Discharge Plan Discharge Patient Disposition: Admitted As Inpatient Admit Provider: Evelyne Feldman Clinical Impression: Acute psychosis Condition: Stable Coding Level of Care Code ED [employer] Learning Support Teacher for Jasmeetg Fwd Exam Comprehensive
[2020-07-09 03:12] LABS: Bilirubin Urine Neg (Negative); Blood Urine Neg (Negative); Glucose Urine UA Norm (Normal); Ketones Urine Negative (Negative); Leukocyte Esterase Urine Negative (Negative); Nitrate Urine Negative (Negative); Protein Urine Neg (Negative); Specific Gravity, Urine 1.015 (1.005-1.030); Urine Appearance Clear (CLEAR); Urine Color Yellow (Yellow); Urobilinogen Urine Norm (Negative); pH Urine 5 (5-7)
--- NOTE | 2020-07-09 03:15 | PC.NURSE ---
Pt resting quietly in bed at this time with eyes closed, respirations appear even and unlabored. 1:1 sitter present at bedside.
[2020-07-09 03:17] LABS: Add Urine Culture? No; Bacteria Urine TRACE /hpf; RBC Urine 0-4 /hpf (0-2); Squamous Epithelial Cell Urine 0-4 /hpf (0-5); WBC Urine 0-4 /hpf (0-5)
[2020-07-09 03:20] LABS: Amphetamines Screen Urine Negative (Negative); Barbiturates Screen Urine Negative (Negative); Benzodiazepines Screen Urine Negative (Negative); Cocaine Screen Urine Negative (Negative); Opiate Screen Urine Negative (Negative); PCP Screen Urine Negative (Negative); THC Screen Urine Negative (Negative)
[2020-07-09 04:13] VITALS: BP 149/100; PULSE 87; RESP 16; TEMP 36.7; O2SAT 97
[2020-07-09 04:17] VITALS: BP 138/77; PULSE 78; O2SAT 98
[2020-07-09 04:30] VITALS: BP 149/100; PULSE 87; RESP 16; TEMP 36.7; O2SAT 97
--- NOTE | 2020-07-09 05:30 | PC.NURSE ---
Skin assessment revealed no wounds or injuries.
[2020-07-09] MEDS: ARIPiprazole 10 mg Tablet PO (07:50)
--- NOTE | 2020-07-09 12:30 | P.SS_ITS ---
Short Stay Summary Providers Date of Admit/Discharge: 07/09/20 Attending Provider: Evelyne Feldman DO Chief Complaint: si HPI History of Present Illness Jeremiah Power is a 34 year old male with a history of malingering, methamphetamine abuse, schizophrenia presenting to the emergency department after reportedly being [place] he had been [place]. Patient has longstanding history of polysubstance abuse, unstable living arrangement secondary to disagreeable behavior and irritability as well as longstanding noncompliance with his medication medication management follow-up. He was not suicidal at the time of his emergency department evaluation and although he had been described as acting in a bizarre manner and voicing advent themed auditory hallucinations, he was not endorsing any psychotic symptoms at the time of his evaluation. He was denying any auditory or visual hallucinations and denied any delusions. As with previous encounter with this patient, he is uncooperative with interview, somewhat irritable, providing brief responses to questions. After being told that he would not be able to return to the [facility] prison he stated, I guess I need to call my cousin to stay with him for a while. Stating that he has been kicked out of her friend's house and has no place to go and that he cannot leave the hospital because he is homeless. Patient does not participate with interview or answering questions with regards to psychiatric review of systems. Review of Systems General: Reports: Other (Does not participate with interview) Home Meds/Allergies Home Medications and Allergies Home Medications Medication Instructions Recorded Confirmed Type trazodone 50 mg tablet 50 mg PO DAILY PRN 06/22/20 07/09/20 History Allergies Allergy/AdvReac Type Severity Reaction Status Date / Time Penicillins Allergy Unknown Verified 07/09/20 01:02 PFSH Acute PFSH: Medical History Alcohol dependence, in remission Borderline intellectual functioning Cannabis dependence, in remission Cigarette nicotine dependence without complication Depressive disorder Major depressive disorder, recurrent, severe with psychotic symptoms Methamphetamine dependence Other stimulant dependence, in remission Social History Smoking and tobacco status: current every day smoker cigarettes Packs smoked per day: 1 Alcohol intake: current Alcohol intake frequency: few times a month Vitals/I&O/Wt Last Vital Signs Temp 98.1 F 07/09/20 04:30 Pulse 87 07/09/20 04:30 Resp 16 07/09/20 04:30 BP 149/100 07/09/20 04:30 Pulse Ox 97 07/09/20 04:30 Weight last 48 hrs Weight 81.647 kg Physical Exam Narrative: EXAM NARRATIVE: MSE: Appears older than stated age, unshaven, but appears to have recently had a haircut, irritable, uncooperative Psychomotor activity is neither increased nor decreased, no agitation Speech is normal volume, normal rate, not pressured I am okay now, congruent affect, irritable, not labile Alert and oriented to person, place, time, situation Memory and concentration are difficult to assess given lack of participation in interview Unable to fully assess intellectual functioning but appears to be average at best based on vocabulary, interview Thought process, organized, linear but brief, no flight of ideas, no looseness of associations Thought content, no stated delusions, does not appear to be attending to any internal stimuli and does not appear to be internally preoccupied, no suicidal or homicidal ideation Insight and judgment appear to be fair at best Hospital Course Hospital Course Patient has a history of polysubstance abuse and multiple presentations to the ED secondary to his unstable living arrangement and on this occasion was found outside with no close on acting bizarrely and reporting advent themed auditory hallucinations although was found to be quite organized and linear in his thought process at the time of his emergency department evaluation. He was not endorsing any suicidal or homicidal ideation at the time of his initial evaluation and denied any mood symptoms and not appear to be demonstrating any disorganization of his thoughts, speech or behavior. His situation is compounded by his longstanding poor compliance with follow-up care currently presenting under similar conditions on multiple previous encounters. Patient was irritable and minimally participative in interview with his only goal being to stay in the hospital for purpose of prison. As with previous encounter, discussed the need for the patient to coordinate with clinical social work aide with regards to potential alternatives for living arrangement as well as need for compliance with follow-up care and abstinence from substances. Low to moderate risk of harm to self given no current psychotic symptoms and no suicidal ideation although patient's risk may be elevated if he continues to abuse substances and is noncompliant with follow-up care leading to unexpected, impulsive behavior. Risk mitigation included observation for any return of psychotic symptoms, suicidal ideation or behavior, recommendation to abstain from the use of substances and alcohol, coordination for post discharge follow- up care. Patient was able to indicate his understanding of the need to abstain from the use of substances and alcohol as well as the need for being compliant with follow-up care in order to further mitigate his risk of harm to self and others. Diagnoses at Discharge Discharge Diagnosis (1) Adjustment disorder with mixed disturbance of emotions and conduct: Status: Acute (2) Polysubstance abuse: Status: Acute Discharge Plan Discharge Patient Disposition: Home Condition: Stable Prescriptions: Continued trazodone 50 mg tablet 50 mg PO DAILY PRN (Reason: Sleep) RF: 0 aripiprazole [Abilify] 10 mg tablet 10 mg PO DAILY Qty: 30 RF: 1 Discharge Orders: Discharge Order (Routine); Ordered 07/09/20 Ordered By: Evelyne Feldman Discharge Diet: Regular Discharge Activity: Resume usual activity Patient Instructions: Opioid Safety Attestations Medical Necessity Statement*: Outpatient medication management, substance counseling/treatment would be the least restrictive and appropriate level of care at this time. Time Spent in Patient Care*: greater than 30 min Status at Discharge: Cognitive status at discharge: cognitively intact , Behavioral status at discharge: can be uncooperative , Functional status at discharge: independent ambulation Overall status at discharge: patient is back to baseline Quality Metrics Clinical Quality Measures: During this hospital stay, did patient experience: None Coding Level of Care Code Acute Photoengraving Helper for Paul Fwtasha Diagnoses Adjustment disorder with mixed disturbance of emotions and conduct F43.25 Polysubstance abuse F19.10
[2020-07-09] MEDS: nicotine 2 mg Gum BUCCAL (12:37)
[2020-07-09 13:03] VITALS: PULSE 87; RESP 16; TEMP 36.7; O2SAT 97
== END 2020-07-09 15:08 | disposition home or self-care (01) | DRG 882 ==
LOC: ER 03:27 → NP 03:36
PROVIDERS: Physician Assistant; Admitting Provider Psychiatry & Neurology Psychiatry; Emergency Provider Emergency Medicine; Visit Provider Psychiatry & Neurology Psychiatry
DX: F43.25 Adjustment disorder with mixed disturbance of emotions and conduct (principal); F15.10 Other stimulant abuse, uncomplicated; F12.11 Cannabis abuse, in remission; F20.9 Schizophrenia, unspecified; Z91.14 Patient's other noncompliance with medication regimen; Z59.0 Homelessness; F10.21 Alcohol dependence, in remission; R41.83 Borderline intellectual functioning; F17.210 Nicotine dependence, cigarettes, uncomplicated; F32.9 Major depressive disorder, single episode, unspecified
CPT/HCPCS: 80053; 80306; 80307; 81001; 85025; 99285

== ENCOUNTER 2020-11-12 18:11 | Emergency (ER) | payer MEDICAID, SELFPAY ==
[2020-11-12 18:21] VITALS: BP 124/83; PULSE 103; RESP 14; TEMP 36.5; O2SAT 97; BMI 29.6
--- NOTE | 2020-11-12 18:43 | ED_ITS ---
HPI - Anxiety General: Chief Complaint: Anxiety Stated Complaint: Stressed Time Seen by Provider: 11/12/20 18:36 Source: patient Mode of arrival: ambulatory Limitations: no limitations History of Present Illness: HPI narrative: 34-year-old male who has a long history of alcoholism along with psychiatric issues. He states that 4-5 nights ago he was intoxicated and was coming off a lerma and made statements about killing himself. He states that he is not truly suicidal at all but his significant other wanted him to be checked out. He adamantly denies any suicidal homicidal ideations. Denies any worsening improving factors. He denies any alcohol use today. Associated symptoms: Deny chest pain, chills, fever(s), headache(s), nausea or vomiting Review of Systems Const: Denies: fever(s), chills, body aches or change in appetite Eyes: Denies: blurry vision or eye discomfort ENMT: Denies: throat pain or dental pain Card: Denies: chest pain Resp: Denies: dyspnea GI: Denies: abdominal pain, nausea, vomiting or diarrhea : Denies: dysuria Musc: Denies: neck pain or back pain Skin/Breast: Denies: rash Neuro: Denies: headache(s) Psych: Reports: depression Thomas/Lymph: Denies: easy bruising All/Imm: Denies: urticaria PFSH ED PFSH: Medical History Alcohol dependence, in remission Borderline intellectual functioning Cannabis dependence, in remission Cigarette nicotine dependence without complication Depressive disorder Major depressive disorder, recurrent, severe with psychotic symptoms Methamphetamine dependence Other stimulant dependence, in remission Social History Smoking and tobacco status: current every day smoker cigarettes Packs smoked per day: 1 Alcohol intake: current Alcohol intake frequency: few times a month Physical Exam Const: COMMON NORMALS: no acute distress, patient oriented x3 and healthy appearing HENMT: COMMON NORMALS: normocephalic and atraumatic HEAD & SCALP: normocephalic and atraumatic Eye: COMMON NORMALS: Equal, round and reactive pupils present and EOMs intact bilaterally PUPIL: Yes Equal, round and reactive pupils present Neck/C-Spine: COMMON NORMALS: full ROM and supple Chest: COMMONS NORMALS: normal inspection of the chest and normal palpation of entire chest wall Resp: COMMON NORMALS: normal respiratory effort, No retractions, No use of accessory muscles and clear to auscultation bilaterally AUSCULTATION: clear to auscultation bilaterally Cardio: COMMON NORMALS: regular rate, regular rhythm and No murmurs present (Cardio) RATE: regular rate RHYTHM: regular rhythm GI: COMMON NORMALS: Normal to inspection, nondistended, normoactive bowel sounds present, Soft to palpation, non-tender and no masses PALPATION: Yes Soft to palpation Extremity: COMMON NORMALS: normal to inspection and full ROM Neuro: COMMON NORMALS: patient oriented x3, moves all extremities and no focal motor deficits Psych: COMMON NORMALS: mental status grossly normal, Normal thought process present and cooperative THOUGHT PROCESS: Normal thought process present Skin: COMMON NORMALS: no rashes or lesions noted and no wounds GENERAL SKIN EXAM: no rashes or lesions noted Course Vital Signs: Vital signs: Vital Signs Temperature 97.7 F 11/12/20 18:21 Pulse Rate 103 H 11/12/20 18:21 Respiratory Rate 14 11/12/20 18:21 Blood Pressure 124/83 11/12/20 18:21 Pulse Oximetry 97 11/12/20 18:21 MDM - Anxiety MDM Narrative: Medical decision making narrative: Patient presents here for making suicidal statements earlier in the week. He was intoxicated adamantly denies them. I do not believe that he was suicidal or is currently suicidal. Patient was evaluated by Dr. Hoyos in the ER as well who agrees that he is stable for discharge and he is not a threat to himself or others. Patient's discharge and informed return if he has any worsening thoughts. He understands and agrees to plan. Discharge Plan Discharge Patient Disposition: Home Clinical Impression: Depression Qualifiers: Depression Type: unspecified Qualified Code(s): F32.9 - Major depressive disorder, single episode, unspecified Condition: Stable Prescriptions: No Action No Known Home Medications RF: 0 Discharge Orders: Discharge ED (Routine); Ordered 11/12/20 Ordered By: Umberto Beeyr Discharge Diet: Advance as tolerated Discharge Activity: Resume usual activity Patient Instructions: Depression (ED) Coding Level of Care Code ED Expert Witness for Paul Fwd Exam Comprehensive
== END 2020-11-12 19:00 | disposition home or self-care (01) ==
PROVIDERS: Emergency Provider Emergency Medicine
DX: F32.9 Major depressive disorder, single episode, unspecified (principal); F17.210 Nicotine dependence, cigarettes, uncomplicated
CPT/HCPCS: 99281

== ENCOUNTER 2021-01-01 17:57 | Inpatient (IN) | payer MEDICAID, SELFPAY ==
[2021-01-01 18:03] VITALS: BP 144/85; PULSE 65; RESP 18; TEMP 36.4; O2SAT 98; BMI 23.1
--- NOTE | 2021-01-01 18:36 | ED_ITS ---
Documented by User: JAIME Lovelace 01/01/21 21:19 HPI - Psych General: Chief Complaint: Psychiatric Symptoms Stated Complaint: STRESSED Time Seen by Provider: 01/01/21 18:36 History of Present Illness: HPI Narrative: 35-year-old male patient comes in today slightly agitated. [place] a way home for a couple of days. Patient states he had not eaten or drinking anything but patient appears well and clean. Patient states he is suicidal but does not have a specific plan. Patient does have a history of alcohol dependence with other substance abuse but has not drank or used today. Patient does have a history of suicidal ideation and hospitalization with last admission being in June. Patient was seen in October in the emergency room for an evaluation but was discharged for emergency department. Patient denies any routine medications at this time. Patient denies any hallucinations. MD complaint: suicidal ideation Associated symptoms: Reports suicidal ideation Review of Systems General: Reports: 10 or more systems reviewed and unremarkable except in HPI and below Psych: Reports: mood swings and suicidal ideation [facility] ED PFSH: Medical History Acute psychosis Alcohol dependence, in remission Alcohol dependence, uncomplicated Borderline intellectual functioning Cannabis dependence, in remission Cigarette nicotine dependence without complication Depressive disorder Major depressive disorder, recurrent, severe with psychotic symptoms Methamphetamine dependence Other stimulant dependence, in remission Psychiatric care Social History Smoking and tobacco status: current every day smoker cigarettes Packs smoked per day: 1 Alcohol intake: current Alcohol intake frequency: few times a month Physical Exam Const: COMMON NORMALS: no acute distress and patient oriented x3 GENERAL APPEARANCE: cooperative and well kempt HENMT: COMMON NORMALS: normocephalic and Normal external nose present HEAD & SCALP: normal to inspection and normocephalic NOSE: Normal external nose present MOUTH: Normal oral and palatal mucosa present THROAT: posterior oropharynx normal Eye: GENERAL EYE: appearance normal, both eyes and all related structures Neck/C-Spine: COMMON NORMALS: full ROM Chest: COMMONS NORMALS: normal inspection of the chest Resp: COMMON NORMALS: normal respiratory effort EFFORT & INSPECTION: Yes able to speak in complete sentences Cardio: COMMON NORMALS: regular rate and regular rhythm RATE: regular rate RHYTHM: regular rhythm GI: COMMON NORMALS: non-tender : COMMON NORMALS: Yes no CVA tenderness BLADDER/KIDNEY EXAM: Yes no CVA tenderness Back/Pelvis: COMMON NORMALS: no CVA tenderness and thoracic and lumbar spine normal to inspection Extremity: COMMON NORMALS: normal to inspection Neuro: COMMON NORMALS: patient oriented x3 and moves all extremities Psych: COMMON NORMALS: speech normal APPEARANCE: Yes well kempt ATTITUDE: Yes agitated ACTIVITY/MOTOR BEHAVIOR: No appropriate eye contact SPEECH: Yes normal speech MOOD & AFFECT: Yes irritable THOUGHT PROCESS: Circumstantial thought process present THOUGHT CONTENT: Yes Suicidality present INSIGHT: Fair insight present (Psych) JUDGEMENT: Fair judgement present (Psych) Skin: COMMON NORMALS: no rashes or lesions noted GENERAL SKIN EXAM: no rashes or lesions noted Course Consultations: Consultation #1: Consulted with Dr. Adams Gonzáles, psychiatrist for admission to [facility] for suicidal ideation. He agreed to plan. Discussed with Dr. Banegas for admission orders. Time: 21:17 Vital Signs: Vital signs: Vital Signs Temperature 97.3 F L 01/04/21 14:00 Pulse Rate 61 01/04/21 14:00 Respiratory Rate 17 01/04/21 14:00 Blood Pressure 101/67 01/04/21 14:00 Pulse Oximetry 99 01/04/21 14:00 MDM - Psych MDM Narrative: Medical decision making narrative: Patient comes in today agitated and [place] Patient appears well. Patient appears no acute distress. Patient reports being suicidal. Patient denies any hallucinations or specific plan for suicide. Differential diagnosis includes but not limited to suicidal ideation, acute psychosis, major depressive disorder. Reviewed exam with Dr. Gonzáles and Dr. Banegas for consultation and admission to neuropsychiatric unit. Patient agreed to plan for treatment and admission. Lab Data: Labs: Lab Results 01/01/21 01/01/21 01/01/21 19:50 19:50 20:10 WBC 7.4 10^3/uL 10^3/ uL (4.0-10.0) RBC 4.71 10^6/uL 10^6 /uL (4.1-5.3) Hgb 14.9 g/dL g/dL (11.7-16.6) Hct 43.1 % % (42.0-52.0) MCV 91.5 fl fl (80-94) MCH 31.6 pg pg (28.0-34.0) MCHC 34.6 g/dL g/dL (30.0-36.0) RDW 11.9 % L % (12.1-15.1) Plt Count 245 10^3/cmm 10^3 /cmm (130-400) MPV 10.4 fL fL (7.4-10.4) Neut % (Auto) 52.9 % % Lymph % (Auto) 39.4 % % Dewitt % (Auto) 6.1 % % Eos % (Auto) 1.1 % % Baso % (Auto) 0.4 % % Neut # (Auto) 3.91 10^3/uL 10^3 /uL (1.8-7.7) Lymph # (Auto) 2.9 10^3/uL 10^3/ uL (0.8-4.8) Dewitt # (Auto) 0.5 10^3/uL 10^3/ uL (0.2-0.9) Eos # (Auto) 0.1 10^3/uL 10^3/ uL (0.0-0.8) Baso # (Auto) 0.0 10^3/uL 10^3/ uL (0.0-0.1) Nucleated RBC % (a uto) 0 % % Nucleated RBCs # 0.0 /100WBC /100W BC Sodium Potassium Chloride Carbon Dioxide Anion Gap BUN Creatinine GFR Calculation Glucose Calculated Osmolal ity Calcium Total Bilirubin AST ALT Alkaline Phosphata se Total Protein Albumin Globulin TSH Urine Color Yellow (Yellow) Urine Appearance Clear (CLEAR) Urine pH 7 (5-7) Ur Specific Gravit y 1.015 (1.005-1.030) Urine Protein Neg (Negative) Urine Glucose (UA) Norm (Normal) Urine Ketones 1+ H (Negative) Urine Blood Neg (Negative) Urine Nitrate Negative (Negative) Urine Bilirubin Neg (Negative) Urine Urobilinogen 1 mg/dL H mg/dL (Negative) Ur Leukocyte Leticia ase Negative (Negative) Salicylates Urine Opiates Scre en Negative ng/mL ng /mL (Negative) Acetaminophen Ur Barbiturates Sc reen Negative ng/mL ng /mL (Negative) Ur Phencyclidine S crn Negative ng/mL ng /mL (Negative) Ur Amphetamines Sc reen Negative ng/mL ng /mL (Negative) U Benzodiazepines Scrn Negative ng/mL ng /mL (Negative) Urine Cocaine Scre en Negative ng/mL ng /mL (Negative) U Marijuana (THC) Screen Positive ng/mL H ng/mL (Negative) Ethyl Alcohol 01/01/21 20:10 WBC RBC Hgb Hct MCV MCH MCHC RDW Plt Count MPV Neut % (Auto) Lymph % (Auto) Dewitt % (Auto) Eos % (Auto) Baso % (Auto) Neut # (Auto) Lymph # (Auto) Dewitt # (Auto) Eos # (Auto) Baso # (Auto) Nucleated RBC % (a uto) Nucleated RBCs # Sodium 140 mmol/L mmol/L (136-145) Potassium 3.9 mmol/L mmol/L (3.5-5.1) Chloride 105 mmol/L mmol/L (98-107) Carbon Dioxide 27 mmol/L mmol/L (22-29) Anion Gap 11.9 (5-19) BUN 11 mg/dL mg/dL (6-20) Creatinine 0.8 mg/dL mg/dL (0.7-1.2) GFR Calculation 109.4 mL/min mL/m in (90-130) Glucose 91 mg/dL mg/dL (65-115) Calculated Osmolal ity 289 mOsm/kg mOsm/ kg (285-295) Calcium 9.1 mg/dL mg/dL (8.5-10.5) Total Bilirubin 0.7 mg/dL mg/dL (0.15-1.2) AST 19 U/L U/L (0-40) ALT 25 U/L U/L (0-41) Alkaline Phosphata se 60 IU/L IU/L (40-130) Total Protein 6.2 g/dL L g/dL (6.6-8.7) Albumin 4.0 g/dL g/dL (3.5-5.2) Globulin 2.2 g/dL g/dL (1.3-4.6) TSH 3.27 uIU/mL uIU/m L (0.27-4.20) Urine Color Urine Appearance Urine pH Ur Specific Gravit y Urine Protein Urine Glucose (UA) Urine Ketones Urine Blood Urine Nitrate Urine Bilirubin Urine Urobilinogen Ur Leukocyte Leticia ase Salicylates < 0.3 mg/dL L mg/ dL (3-10) Urine Opiates Scre en Acetaminophen < 5.0 ug/mL L ug/ mL (10-30) Ur Barbiturates Sc reen Ur Phencyclidine S crn Ur Amphetamines Sc reen U Benzodiazepines Scrn Urine Cocaine Scre en U Marijuana (THC) Screen Ethyl Alcohol < 10 mg/dL mg/dL (0-10) Discharge Plan Discharge Patient Disposition: Admitted As Inpatient Admit Provider: Adams Gonzáles Clinical Impression: Suicidal ideation Condition: Stable Coding Level of Care Code ED Snow Fence Erector for Chg Fwd Exam Comprehensive Documented by User: April Banegas MD 01/04/21 20:18 HPI - Psych General: Chief Complaint: Psychiatric Symptoms Stated Complaint: STRESSED Time Seen by Provider: 01/01/21 18:36 PFSH ED PFSH: Medical History Acute psychosis Alcohol dependence, in remission Alcohol dependence, uncomplicated Borderline intellectual functioning Cannabis dependence, in remission Cigarette nicotine dependence without complication Depressive disorder Major depressive disorder, recurrent, severe with psychotic symptoms Methamphetamine dependence Other stimulant dependence, in remission Psychiatric care Social History Smoking and tobacco status: current every day smoker cigarettes Packs smoked per day: 1 Alcohol intake: current Alcohol intake frequency: few times a month Course Vital Signs: Vital signs: Vital Signs Temperature 97.3 F L 01/04/21 14:00 Pulse Rate 61 01/04/21 14:00 Respiratory Rate 17 01/04/21 14:00 Blood Pressure 101/67 01/04/21 14:00 Pulse Oximetry 99 01/04/21 14:00 MDM - Psych Lab Data: Labs: Lab Results 01/01/21 01/01/21 01/01/21 19:50 19:50 20:10 WBC 7.4 10^3/uL 10^3/ uL (4.0-10.0) RBC 4.71 10^6/uL 10^6 /uL (4.1-5.3) Hgb 14.9 g/dL g/dL (11.7-16.6) Hct 43.1 % % (42.0-52.0) MCV 91.5 fl fl (80-94) MCH 31.6 pg pg (28.0-34.0) MCHC 34.6 g/dL g/dL (30.0-36.0) RDW 11.9 % L % (12.1-15.1) Plt Count 245 10^3/cmm 10^3 /cmm (130-400) MPV 10.4 fL fL (7.4-10.4) Neut % (Auto) 52.9 % % Lymph % (Auto) 39.4 % % Dewitt % (Auto) 6.1 % % Eos % (Auto) 1.1 % % Baso % (Auto) 0.4 % % Neut # (Auto) 3.91 10^3/uL 10^3 /uL (1.8-7.7) Lymph # (Auto) 2.9 10^3/uL 10^3/ uL (0.8-4.8) Dewitt # (Auto) 0.5 10^3/uL 10^3/ uL (0.2-0.9) Eos # (Auto) 0.1 10^3/uL 10^3/ uL (0.0-0.8) Baso # (Auto) 0.0 10^3/uL 10^3/ uL (0.0-0.1) Nucleated RBC % (a uto) 0 % % Nucleated RBCs # 0.0 /100WBC /100W BC Sodium Potassium Chloride Carbon Dioxide Anion Gap BUN Creatinine GFR Calculation Glucose Calculated Osmolal ity Calcium Total Bilirubin AST ALT Alkaline Phosphata se Total Protein Albumin Globulin TSH Urine Color Yellow (Yellow) Urine Appearance Clear (CLEAR) Urine pH 7 (5-7) Ur Specific Gravit y 1.015 (1.005-1.030) Urine Protein Neg (Negative) Urine Glucose (UA) Norm (Normal) Urine Ketones 1+ H (Negative) Urine Blood Neg (Negative) Urine Nitrate Negative (Negative) Urine Bilirubin Neg (Negative) Urine Urobilinogen 1 mg/dL H mg/dL (Negative) Ur Leukocyte Leticia ase Negative (Negative) Salicylates Urine Opiates Scre en Negative ng/mL ng /mL (Negative) Acetaminophen Ur Barbiturates Sc reen Negative ng/mL ng /mL (Negative) Ur Phencyclidine S crn Negative ng/mL ng /mL (Negative) Ur Amphetamines Sc reen Negative ng/mL ng /mL (Negative) U Benzodiazepines Scrn Negative ng/mL ng /mL (Negative) Urine Cocaine Scre en Negative ng/mL ng /mL (Negative) U Marijuana (THC) Screen Positive ng/mL H ng/mL (Negative) Ethyl Alcohol 01/01/21 20:10 WBC RBC Hgb Hct MCV MCH MCHC RDW Plt Count MPV Neut % (Auto) Lymph % (Auto) Dewitt % (Auto) Eos % (Auto) Baso % (Auto) Neut # (Auto) Lymph # (Auto) Dewitt # (Auto) Eos # (Auto) Baso # (Auto) Nucleated RBC % (a uto) Nucleated RBCs # Sodium 140 mmol/L mmol/L (136-145) Potassium 3.9 mmol/L mmol/L (3.5-5.1) Chloride 105 mmol/L mmol/L (98-107) Carbon Dioxide 27 mmol/L mmol/L (22-29) Anion Gap 11.9 (5-19) BUN 11 mg/dL mg/dL (6-20) Creatinine 0.8 mg/dL mg/dL (0.7-1.2) GFR Calculation 109.4 mL/min mL/m in (90-130) Glucose 91 mg/dL mg/dL (65-115) Calculated Osmolal ity 289 mOsm/kg mOsm/ kg (285-295) Calcium 9.1 mg/dL mg/dL (8.5-10.5) Total Bilirubin 0.7 mg/dL mg/dL (0.15-1.2) AST 19 U/L U/L (0-40) ALT 25 U/L U/L (0-41) Alkaline Phosphata se 60 IU/L IU/L (40-130) Total Protein 6.2 g/dL L g/dL (6.6-8.7) Albumin 4.0 g/dL g/dL (3.5-5.2) Globulin 2.2 g/dL g/dL (1.3-4.6) TSH 3.27 uIU/mL uIU/m L (0.27-4.20) Urine Color Urine Appearance Urine pH Ur Specific Gravit y Urine Protein Urine Glucose (UA) Urine Ketones Urine Blood Urine Nitrate Urine Bilirubin Urine Urobilinogen Ur Leukocyte Leticia ase Salicylates < 0.3 mg/dL L mg/ dL (3-10) Urine Opiates Scre en Acetaminophen < 5.0 ug/mL L ug/ mL (10-30) Ur Barbiturates Sc reen Ur Phencyclidine S crn Ur Amphetamines Sc reen U Benzodiazepines Scrn Urine Cocaine Scre en U Marijuana (THC) Screen Ethyl Alcohol < 10 mg/dL mg/dL (0-10) Discharge Plan Discharge Patient Disposition: Admitted As Inpatient Admit Provider: Adams Gonzáles Clinical Impression: Suicidal ideation Condition: Stable Coding Level of Care Code ED Snow Fence Erector for Paul Fwd Exam Comprehensive
[2021-01-01 19:54] VITALS: BP 130/70; PULSE 70; RESP 16; TEMP 36.8; O2SAT 97
[2021-01-01 20:15] LABS: Add Urine Microscopic? NO; Charge for UA Resulting for Rev
[2021-01-01 20:16] LABS: Basophils % 0.4 %; Eosinophils # 0.1 10^3/uL (0.0-0.8); Eosinophils % 1.1 %; Hematocrit 43.1 % (42.0-52.0); Hemoglobin 14.9 g/dL (11.7-16.6); Lymphocytes # 2.9 10^3/uL (0.8-4.8); Lymphocytes % 39.4 %; Mean Corpuscular HGB Conc 34.6 g/dL (30.0-36.0); Mean Corpuscular Hemoglobin 31.6 pg (28.0-34.0); Mean Corpuscular Volume 91.5 fl (80-94); Mean Platelet Volume 10.4 fL (7.4-10.4); Monocytes # 0.5 10^3/uL (0.2-0.9); Monocytes % 6.1 %; Neutrophils # 3.91 10^3/uL (1.8-7.7); Neutrophils % 52.9 %; Nucleated Red Blood Cells % 0 %; Platelet Count 245 10^3/cmm (130-400); Red Blood Count 4.71 10^6/uL (4.1-5.3); Red Cell Distribution Width 11.9 % (12.1-15.1); White Blood Count 7.4 10^3/uL (4.0-10.0)
[2021-01-01 20:19] LABS: Bilirubin Urine Neg (Negative); Blood Urine Neg (Negative); Glucose Urine UA Norm (Normal); Ketones Urine 1+ (Negative); Leukocyte Esterase Urine Negative (Negative); Nitrate Urine Negative (Negative); Protein Urine Neg (Negative); Specific Gravity, Urine 1.015 (1.005-1.030); Urine Appearance Clear (CLEAR); Urine Color Yellow (Yellow); Urobilinogen Urine 1 mg/dL (Negative); pH Urine 7 (5-7)
--- NOTE | 2021-01-01 20:41 | PC.NURSE ---
1:1 sitter documentation continues with paper charting.
[2021-01-01 21:01] LABS: Alanine Aminotransferase 25 U/L (0-41); Alkaline Phosphatase 60 IU/L (40-130); Anion Gap 11.9 (5-19); Aspartate Amino Transferase 19 U/L (0-40); Blood Urea Nitrogen 11 mg/dL (6-20); Calcium 9.1 mg/dL (8.5-10.5); Carbon Dioxide 27 mmol/L (22-29); Chloride 105 mmol/L (98-107); Globulin 2.2 g/dL (1.3-4.6); Glomerular Filtration Rate 109.4 mL/min (90-130); Glucose 91 mg/dL (65-115); Osmolality Calculated 289 mOsm/kg (285-295); Potassium 3.9 mmol/L (3.5-5.1); Sodium 140 mmol/L (136-145); Thyroid Stimulating Hormone 3.27 uIU/mL (0.27-4.20); Total Bilirubin 0.7 mg/dL (0.15-1.2); Total Protein 6.2 g/dL (6.6-8.7)
[2021-01-01 21:09] LABS: Acetaminophen < 5.0 ug/mL (10-30); Alcohol Level < 10 mg/dL (0-10); Salicylate < 0.3 mg/dL (3-10)
[2021-01-01 21:20] VITALS: BP 136/76; PULSE 68; RESP 16; TEMP 36.8; O2SAT 98
[2021-01-01 21:49] VITALS: BP 126/79; PULSE 68; RESP 16; TEMP 36.6; O2SAT 98
[2021-01-01 22:03] LABS: Amphetamines Screen Urine Negative (Negative); Barbiturates Screen Urine Negative (Negative); Benzodiazepines Screen Urine Negative (Negative); Cocaine Screen Urine Negative (Negative); Opiate Screen Urine Negative (Negative); PCP Screen Urine Negative (Negative); THC Screen Urine Positive (Negative)
[2021-01-01 22:21] VITALS: BP 137/83; PULSE 55; RESP 17; TEMP 37; O2SAT 99
[2021-01-01] MEDS: nicotine 2 mg Gum BUCCAL (22:31)
--- NOTE | 2021-01-01 22:44 | PC.NURSE ---
35/male vol SI with AH--slightly agitated. [place] way home for a couple of days. Patient states he had not eaten or drinking anything but patient appears well and clean. Patient states he is suicidal but does not have a specific plan. Patient does have a history of alcohol dependence with other substance abuse but has not drank or used today. Patient does have a history of suicidal ideation and hospitalization with last admission being in June. Pt denies any home medications. His appearance is dirty, requested bath. [employer] MAN's notified. Pt is calm and cooperative with admission. Denies AH at this time. Endorses anger and HI- toward family that has left him without food and water. Pt states he is homeless at this time.
[2021-01-02 06:00] VITALS: BP 137/82; PULSE 74; RESP 17; TEMP 36.6; O2SAT 99
[2021-01-02] MEDS: ARIPiprazole 10 mg Tablet PO (09:40)
--- NOTE | 2021-01-02 12:19 | P.HP_ITS ---
Providers/Chief Complaint Admitting Physician: Adams Gonzáles MD Chief Complaint: STRESSED HPI NPU History of Present Illness Jeremiah Power is a 35 year old male with a long history of alcohol dependence, methamphetamine use, marijuana use, depression, schizophrenia and borderline intellectual functioning, who presents to the ED with suicidal ideation without a plan. The ED note states: HPI Narrative: 35-year-old male patient comes in today slightly agitated. [place] find a way home for a couple of days. Patient states he had not eaten or drinking anything but patient appears well and clean. Patient states he is suicidal but does not have a specific plan. Patient does have a history of alcohol dependence with other substance abuse but has not drank or used today. Patient does have a history of suicidal ideation and hospitalization with last admission being in June. Patient was seen in October in the emergency room for an evaluation but was discharged for emergency department. Patient denies any routine medications at this time. Patient denies any hallucinations. The patient states that, as stated above, he became homeless. He had been parking his camper at a family member's house, but was told he had to leave for a few days. [place], promising to return with some food. But they did not return. So, he was both out of food, and felt abandoned. Another concern family member called the police [place], and he ask the officer to bring him to the [facility] ED. He tells me, now I am homeless again, stressed out, and wants to . He has no specific plan to commit suicide. He does feel helpless, hopeless and worthless. The patient has a past history of schizophrenia, and tells me that he got kicked out of the skilled nursing permanently when he stripped naked to walk to the river. When I ask about this, he said Deon told me to do it. Upon further exploration, he was hearing the voice of the biblical prophet Deon, who in a famous Bible passage, told someone else to strip naked and bathe in a river. The patient was feeling this was happening to him. The patient says he is still hearing voices. In addition, the patient has a past history of borderline intellectual function. 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 The patient is on probation and needs to finish community service, but cannot figure out how to do it. The patient denies recent alcohol or drug use. He says he smokes 2 packs of cigarettes per day. Urine drug screen showed the presence of cannabinoids, but was otherwise negative for all substances tested. Blood alcohol level was negative. Psychiatric history: As above. Substance use history: As above. Family history: Patient denies mental health or addiction issues on either side of the family and denies suicide attempts or completions in the family. Psychosocial history: The patient says he was born and raised in [place]. Legal history: Currently on probation and needs to do community service Medical history: The patient says he has had 2 hernia surgeries and has a hernia currently which does not cause him problems. Denies any other significant medical history. SIDNEY Cates's note from 12/17/20 states: [facility] was notified that Client arrived at [facility]. [facility] brought Client to the consultation room, as well as met [facility]'s metal cans supervisor. [facility] observed Client to have kym shorts that appeared to be have a variety of stains, a shirt that had holes throughout, shoes that barley held the soles, as well as perspiration on Client's forehead. [facility]'s metal cans supervisor attempted to address a concern regarding Client's behaviors with his treatment team. Client appeared to be confused then became angry, and short with the metal cans supervisor. Client stated I'll just leave. The metal cans supervisor attempted to explain that [facility] wanted to provide services to him, but wanted to address this concern to prevent further instances from occurring. Client explained that he didn't understand the conversation, then stormed out of the consultation room into the waiting room. After a short while, [facility] observed that Client began knocking on the window to return to the consultation room. SIDNEY and her metal cans supervisor met with Client again. The [employer] Developer asked Client how [facility] can help him. Client continued to express his anger and frustrations as he explained that he is homeless, tired, and hungry. SIDNEY and her [employer] Developer utilized reflective listening as Client explained his current living situation meaning that he has to remove his camper on . [facility] asked Client if he had a plan to move his camper to a relatives or a park. Client answered in an agitated voice, I have no place to go. I don't know where to begin when trying to work things out. CSS [employer] Developer encouraged Client to research the local [employer] in the area. Client complied with this request and learned that there are no current availabilities. Client is unsure what he will do, and isn't sure how [facility] can assist him. CSS explained that he is on the waiting list as he applied for [facility] through [employer]. Client explained that he doesn't have any food, but that he had eaten the day before. [facility]'s [employer] M[employer] Developer offered to get Client something to eat. CSS confirmed with Client that his sister who is helping Client complete the necessary paperwork for benefits was still assisting Client with this process. Client answered yes. I just learned that I have Medicaid now. Lastly, CSS, Client, and CSS [employer] discussed another stressor Client identified which is his community service hours for his probation. Client explained that he was frustrated that he couldn't figure the hours he has completed thus far. [facility]'s [employer] Developer asked Client if he had the paper that held the hours he's completed this far, Client answered yes. and provided the document. It was determined that Client has completed 31 hours of community service at this time. Client became upset and stated I'm supposed to have this completed by December. I'll just commit another felony and go back to [facility]. Then I will have a place to stay and food. [facility]'s [employer] Developer explained again to Client that [facility] wanted to assist Client with finding resources that improved Client's functioning. [facility]'s [employer] Developer asked Client if he would be willing to work with a male account management specialist. Client answered absolutely not. I will not work or talk with a male. [facility]'s [employer] Developer explained the importance of exhibiting appropriate behaviors and asked if Client was willing to reschedule with [facility] for the following week. Client answered I guess. [facility] and Client discussed their availability and scheduled an appointment for the following week. [facility] asked Client if he had any questions at this time. Client answered no. [facility] thanked Client for his time and walked Client back to the waiting room. [facility] documented encounter in [employer]. Action Plan: Client will attend scheduled appointments and utilize [facility] as needed. [facility] Return Plan: Follow up with Client the following week. Client Response: I'm supposed to have this completed by December. I'll just commit another felony and go back to [facility]. Then I will have a place to stay and food. Meds NPU Home Medications Medication Instructions Recorded Confirmed Last Taken Type aripiprazole 10 mg PO DAILY 01/02/21 01/02/21 Unknown History ibuprofen 800 mg PO TID PRN 01/02/21 01/02/21 Unknown History trazodone 50 mg PO BEDTIME PRN 01/02/21 01/02/21 Unknown History Allergies Allergy/AdvReac Type Severity Reaction Status Date / Time Penicillins Allergy Unknown Verified 07/09/20 01:02 PFS NPU PFSH: Medical History Acute psychosis Alcohol dependence, in remission Alcohol dependence, uncomplicated Borderline intellectual functioning Cannabis dependence, in remission Cigarette nicotine dependence without complication Depressive disorder Major depressive disorder, recurrent, severe with psychotic symptoms Methamphetamine dependence Other stimulant dependence, in remission Psychiatric care Social History Smoking and tobacco status: current every day smoker cigarettes Packs smoked per day: 1 Alcohol intake: current Alcohol intake frequency: few times a month Mental Status Exam MSE Comments: I met with the patient in his room, and he was dressed in hospital scrubs and was somewhat unkempt. He was agitated and in distress but did his best to cooperate. Fair eye contact. Speech is mildly pressured Alert, oriented to person, place, time, and situation Attention and concentration were intact. Remembers 3/3 words immediately and at 3 minutes. Memory is intact. He remembers the names of the past 5 presidents Mood is depressed. Affect is irritable and distressed. Thought process is logical but concrete. Thought content: He has auditory but not visual hallucinations. He has passive but not active suicidal ideation. No homicidal ideation. He does believe the delusion that the prophet Deon communicates with him. Insight and judgment are limited. Impulse control is limited as well. Vitals/I&O/Wt Last Vital Signs Temp 97.8 F 01/02/21 06:00 Pulse 74 01/02/21 06:00 Resp 17 01/02/21 06:00 BP 137/82 01/02/21 06:00 Pulse Ox 99 01/02/21 06:00 Weight last 48 hrs Weight 67.132 kg Data NPU : 01/01/21 20:10 01/01/21 20:10 A&P Assessment and plan (1) Suicidal ideation: Status: Acute (2) Adjustment disorder with depressed mood: Status: Acute (3) Schizophrenia: Status: Acute (4) Borderline intellectual functioning: Status: Acute Additional A&P Information This is a 35 year old male with a long history of alcohol dependence, methamphetamine use, marijuana use, depression, schizophrenia and borderline intellectual functioning, who presents to the ED with suicidal ideation without a plan. Because of his psychosis and borderline intellectual functioning, he is unable to solve his problems of daily living, such as housing and how to complete his community service. Because the ears are both issues of survival for him, he is in distress, feeling hopeless, helpless and worthless. Some days killing himself seems like his only option. RECOMMENDATION AND PLAN: 1. Continue current medication. 2. Continue every 15 minute checks for safety. 3. Encourage individual, group and milieu therapies. 4. Encourage sober living treatment after discharge at the highest level of care to which he is willing to commit. Involuntary Hold Information 96 Hour Hold: 96 Hour Involuntary Admission: No Attestations NPU Medical Necessity Statement*: Psychiatric hospitalization is medically necessary to prevent access to lethal means, to reevaluate medication, and to coordinate a safe discharge. Patient will be in the hospital for over 2 midnights. Likely length of stay is 3 to 5 days. Coding Level of Care Code Acute Cylinder Block Hole Reliner for Paul Small Diagnoses Suicidal ideation R45.851 Adjustment disorder with depressed mood F43.21 Schizophrenia F20.9 Borderline intellectual functioning R41.83
[2021-01-02 14:00] VITALS: BP 112/73; PULSE 64; RESP 17; TEMP 37.6; O2SAT 99
[2021-01-02] MEDS: nicotine 2 mg Gum BUCCAL (18:44)
[2021-01-02 20:16] VITALS: BP 122/78; PULSE 57; RESP 19; TEMP 36.6; O2SAT 100
--- NOTE | 2021-01-02 20:35 | PC.NURSE ---
NURSE NOTE: DAILY ASSESSMENT: PT SITTING IN DAYROOM. AFFECT FLAT; PT CALM AND SITTING WITH OTHER PATIENTS AT TABLE. ANSWERS QUESTIONS POLITELY AND APPROPRIATELY. DENIES SI OR HI BUT STATES, I HEAR AND SEE THINGS ALL THE TIME, THAT IS NOT NEW. PT MOVES ALL EXTREMITIES AND FOLLOWS ALL COMMANDS. DENIES PAIN. BM X1 TODAY. NO ACUTE DISTRESS NOTED. ALL VS AND ASSESSMENTS CHARTED.
[2021-01-03 05:40] VITALS: BP 122/78; PULSE 57; RESP 19; TEMP 36.6; O2SAT 100
[2021-01-03 06:17] VITALS: BP 119/72; PULSE 66; RESP 17; TEMP 36.7; O2SAT 99
[2021-01-03 14:00] VITALS: BP 101/67; PULSE 58; RESP 18; TEMP 36.6; O2SAT 94
--- NOTE | 2021-01-03 16:21 | P.PN_ITS ---
Subjective NPU Subjective: Interval history: Eris presents today reporting that he got himself in a bad situation after drinking, patient because he had a moment again and he basically created a situation where he can go back to where he had been staying. He reports he feels like he is doing okay and we discussed the plan to work with the treatment team to figure out where he can go when he discharges. Mental Status Exam MSE Comments: This is a well-nourished, well-developed white male in hospital scrubs with limited dress, grooming and eye contact. No abnormal movements except for resolving mild psychomotor retardation. Cooperative with exam in no acute distress. Speech was more normal rate and volume. Mood described as better, affect congruent. Thought process organized. Thought content: Patient denied suicidal or homicidal ideation. There are no delusions reported or noted, he denied any auditory or visual hallucinations. Attention and concentration were intact and memory appeared reliable but none were formally tested. He is alert and oriented x3. Insight and judgment are fair, impulse control is impaired, but improving. Vitals/I&O/Wt Last Vital Signs Temp 97.9 F 01/03/21 20:30 Pulse 56 L 01/03/21 20:30 Resp 18 01/03/21 20:30 BP 113/76 01/03/21 20:30 Pulse Ox 100 01/03/21 20:30 Data NPU : 01/01/21 20:10 01/01/21 20:10 A&P Additional A&P Information (1) Suicidal ideation: (2) Adjustment disorder with depressed mood: (3) Schizophrenia: (4) Borderline intellectual functioning: Additional A&P Information This is a 35 year old male with a long history of alcohol dependence, methamphetamine use, marijuana use, depression, schizophrenia and borderline intellectual functioning, who presents to the ED with suicidal ideation without a plan. Because of his psychosis and borderline intellectual functioning, he is unable to solve his problems of daily living, such as housing and how to complete his community service. Because the ears are both issues of survival for him, he is in distress, feeling hopeless, helpless and worthless. Some days killing himself seems like his only option. RECOMMENDATION AND PLAN: 1. Continue current medication. 2. Continue every 15 minute checks for safety. 3. Encourage individual, group and milieu therapies. 4. Encourage sober living treatment after discharge at the highest level of care to which he is willing to commit. Involuntary Hold Information 96 Hour Hold: 96 Hour Involuntary Admission: No Attestations NPU Medical Necessity Statement*: Psychiatric hospitalization is medically necessary to prevent access to lethal means, to reevaluate medication, and to coordinate a safe discharge. Likely length of stay is 2-4 days. Coding Level of Care Code Acute Intranet Support for Paul Small
[2021-01-03] MEDS: OLANZapine 5 mg ODT PO ×2 (17:56→20:56)
[2021-01-03 20:30] VITALS: BP 113/76; PULSE 56; RESP 18; TEMP 36.6; O2SAT 100
[2021-01-03] MEDS: acetaminophen 325 mg Tablet 650 MG PO (20:48)
[2021-01-03] MEDS: hyDROXYzine 25 mg Capsule 50 MG PO (20:48)
[2021-01-03] MEDS: benztropine 1 mg Tablet PO (20:48)
[2021-01-03] MEDS: ondansetron 4 MG Tablet PO (20:48)
--- NOTE | 2021-01-03 23:31 | PC.NURSE ---
PRN MEDICATIONS: PATIENT WAS GIVEN PRN TYLENOL 650MG PO, COGENTIN 1MG PO, VISTARIL 50MG PO, ZYPREXA 5MG PO, AND ZOFRAN 4MG PO. UPON REASSESSMENT MEDICATION EFFECTIVE.
[2021-01-04 06:00] VITALS: BP 113/76; PULSE 56; RESP 18; TEMP 36.6; O2SAT 100
--- NOTE | 2021-01-04 10:40 | PC.NURSE ---
med refusal pt refused morning med pass. Pt stated that he wasn't here for meds, that he was here because he is homeless.
--- NOTE | 2021-01-04 11:01 | PM.NPN ---
Subjective NPU Subjective: Interval history: Bennett presents today reporting that he is not feeling great. The current circumstance leave us with the option of simply for a possible fpc which she be having limited success finding. We discussed continuing to work on getting better and the likelihood of discharge on Thursday. Mental Status Exam MSE Comments: This is a well-nourished, well-developed white male in hospital scrubs with limited dress, grooming and eye contact. No abnormal movements except for resolving mild psychomotor retardation. Cooperative with exam in no acute distress. Speech was more normal rate and volume. Mood described as frustrated, affect congruent. Thought process organized. Thought content: Patient denied suicidal or homicidal ideation. There are no delusions reported or noted, he denied any auditory or visual hallucinations. Attention and concentration were intact and memory appeared reliable but none were formally tested. He is alert and oriented x3. Insight and judgment are fair, impulse control is impaired, but improving. Vitals/I&O/Wt Last Vital Signs Temp 97.9 F 01/04/21 06:00 Pulse 56 L 01/04/21 06:00 Resp 18 01/04/21 06:00 BP 113/76 01/04/21 06:00 Pulse Ox 100 01/04/21 06:00 Data NPU : 01/01/21 20:10 01/01/21 20:10 A&P Additional A&P Information (1) Suicidal ideation: (2) Adjustment disorder with depressed mood: (3) Schizophrenia: (4) Borderline intellectual functioning: This is a 35 year old male with a long history of alcohol dependence, methamphetamine use, marijuana use, depression, schizophrenia and borderline intellectual functioning, who presents to the ED with suicidal ideation without a plan. Because of his psychosis and borderline intellectual functioning, he is unable to solve his problems of daily living, such as housing and how to complete his community service. Because the ears are both issues of survival for him, he is in distress, feeling hopeless, helpless and worthless. Some days killing himself seems like his only option. RECOMMENDATION AND PLAN: 1. Continue current medication. 2. Continue every 15 minute checks for safety. 3. Encourage individual, group and milieu therapies. 4. Encourage sober living treatment after discharge at the highest level of care to which he is willing to commit. Involuntary Hold Information 96 Hour Hold: 96 Hour Involuntary Admission: No Attestations NPU Medical Necessity Statement*: Psychiatric hospitalization is medically necessary to prevent access to lethal means, to reevaluate medication, and to coordinate a safe discharge. Likely length of stay is 2-4 days. Coding Level of Care Code Acute Medicaid Specialist for Paul Small
--- NOTE | 2021-01-04 11:05 | NPU.GN ---
[facility] Group Topic: Coping skills harjinder General Mood of Group: Patient refused group, was too tired
[2021-01-04 14:00] VITALS: BP 101/67; PULSE 61; RESP 17; TEMP 36.3; O2SAT 99
--- NOTE | 2021-01-04 14:12 | PC.RESP ---
SMOKING CESSATION INFORMATION SENT TO PATIENT.
[2021-01-04 20:56] VITALS: BP 114/69; PULSE 43; RESP 17; TEMP 36.7; O2SAT 99
[2021-01-05 06:00] VITALS: BP 115/76; PULSE 72; RESP 19; TEMP 36.8; O2SAT 98
--- NOTE | 2021-01-05 08:05 | PM.NPN ---
Mental Status Exam MSE Comments: This is a well-nourished, well-developed white male in hospital scrubs with limited dress, grooming and eye contact. No abnormal movements except for resolving mild psychomotor retardation. Cooperative with exam in no acute distress. Speech was more normal rate and volume. Mood described as a little better, affect congruent. Thought process organized. Thought content: Patient denied suicidal or homicidal ideation. There are no delusions reported or noted, he denied any auditory or visual hallucinations. Attention and concentration were intact and memory appeared reliable but none were formally tested. He is alert and oriented x3. Insight and judgment are fair, impulse control is impaired, but improving. Vitals/I&O/Wt Last Vital Signs Temp 98.2 F 01/05/21 06:00 Pulse 72 01/05/21 06:00 Resp 19 H 01/05/21 06:00 BP 115/76 01/05/21 06:00 Pulse Ox 98 01/05/21 06:00 Data NPU : 01/01/21 20:10 01/01/21 20:10 A&P Additional A&P Information (1) Suicidal ideation: (2) Adjustment disorder with depressed mood: (3) Schizophrenia: (4) Borderline intellectual functioning: This is a 35 year old male with a long history of alcohol dependence, methamphetamine use, marijuana use, depression, schizophrenia and borderline intellectual functioning, who presents to the ED with suicidal ideation without a plan. Because of his psychosis and borderline intellectual functioning, he is unable to solve his problems of daily living, such as housing and how to complete his community service. Because the ears are both issues of survival for him, he is in distress, feeling hopeless, helpless and worthless. Some days killing himself seems like his only option. RECOMMENDATION AND PLAN: 1. Continue current medication. 2. Continue every 15 minute checks for safety. 3. Encourage individual, group and milieu therapies. 4. Encourage sober living treatment after discharge at the highest level of care to which he is willing to commit. 5. He continues to make slow improvements and she will be ready to discharge to some plan on Thursday currently he is considering going back to a RV that has no electricity, no running water and likely will place he continues his drinking behavior. Involuntary Hold Information 96 Hour Hold: 96 Hour Involuntary Admission: No Attestations NPU Medical Necessity Statement*: Psychiatric hospitalization is medically necessary to prevent access to lethal means, to reevaluate medication, and to coordinate a safe discharge. Likely length of stay is 1-3 days. Coding Level of Care Code Acute Critical Care Paramedic for Paul Small
[2021-01-05] MEDS: nicotine 2 mg Gum BUCCAL ×2 (08:54→18:02)
--- NOTE | 2021-01-05 09:04 | PC.NURSE ---
Patient refused AM dose of Abilify. Patient states he has not taken that medication in over 3 months. He agreed to take it yesterday because he wanted to sleep. Patient states Tasia Doe took him of this medication. Nurse will continue to monitor patient.
[2021-01-05 14:00] VITALS: BP 119/78; PULSE 76; RESP 16; TEMP 36.9; O2SAT 98
[2021-01-05 20:45] VITALS: BP 121/79; PULSE 71; RESP 18; TEMP 36.7; O2SAT 98
--- NOTE | 2021-01-06 02:38 | PC.NURSE ---
Vistaril given for anxiety. Patient responded well. Will continue to monitor.
[2021-01-06 06:00] VITALS: BP 103/71; PULSE 64; RESP 17; TEMP 36.9; O2SAT 98
--- NOTE | 2021-01-06 07:03 | PM.NPN ---
Subjective NPU Subjective: Interval history: Patient presents today reporting that he feels he will be fine going back to his RV. We discussed the concerns that the RV did not have amenities that he is stable long-term and the isolation risk with his use felt problematic. But he is open to work with the treatment team tomorrow to see what options are available. Mental Status Exam MSE Comments: This is a well-nourished, well-developed white male in hospital scrubs with limited dress, grooming and eye contact. No abnormal movements except for resolving mild psychomotor retardation. Cooperative with exam in no acute distress. Speech was more normal rate and volume. Mood described as I will know that was ever bad, my sister was just worried, affect slightly irritable. Thought process organized. Thought content: Patient denied suicidal or homicidal ideation. There are no delusions reported or noted, he denied any auditory or visual hallucinations. Attention and concentration were intact and memory appeared reliable but none were formally tested. He is alert and oriented x3. Insight and judgment are fair, impulse control is impaired, but improving. Vitals/I&O/Wt Last Vital Signs Temp 98.4 F 01/06/21 06:00 Pulse 64 01/06/21 06:00 Resp 17 01/06/21 06:00 BP 103/71 01/06/21 06:00 Pulse Ox 98 01/06/21 06:00 Weight last 48 hrs Weight 67.132 kg Data NPU : 01/01/21 20:10 01/01/21 20:10 A&P Additional A&P Information (1) Suicidal ideation: (2) Adjustment disorder with depressed mood: (3) Schizophrenia: (4) Borderline intellectual functioning: This is a 35 year old male with a long history of alcohol dependence, methamphetamine use, marijuana use, depression, schizophrenia and borderline intellectual functioning, who presents to the ED with suicidal ideation without a plan. Because of his psychosis and borderline intellectual functioning, he is unable to solve his problems of daily living, such as housing and how to complete his community service. Because the ears are both issues of survival for him, he is in distress, feeling hopeless, helpless and worthless. Some days killing himself seems like his only option. RECOMMENDATION AND PLAN: 1. Continue current medication. 2. Continue every 15 minute checks for safety. 3. Encourage individual, group and milieu therapies. 4. Encourage sober living treatment after discharge at the highest level of care to which he is willing to commit. 5. He continues to make slow improvements and she will be ready to discharge to some plan on Thursday currently he is considering going back to a RV that has no electricity, no running water and likely will place he continues his drinking behavior. Involuntary Hold Information 96 Hour Hold: 96 Hour Involuntary Admission: No Attestations NPU Medical Necessity Statement*: Psychiatric hospitalization is medically necessary to prevent access to lethal means, to reevaluate medication, and to coordinate a safe discharge. Likely length of stay is 1-3 days. Coding Level of Care Code Acute Neurology Tech for Paul Small
[2021-01-06] MEDS: nicotine 2 mg Gum BUCCAL ×3 (09:12→19:51)
--- NOTE | 2021-01-06 09:13 | PC.NURSE ---
Pt pleasantly refused medication. States provider, Tasia Azar, discontinued medication three months ago. Nicotine gum administered per order per pt request. Pt states he prefers the Nicotine gum over the patch.
[2021-01-06 14:00] VITALS: BP 106/68; PULSE 62; RESP 18; TEMP 36.8; O2SAT 97
[2021-01-06 20:12] VITALS: BP 112/61; PULSE 61; RESP 20; TEMP 37; O2SAT 99
[2021-01-06] MEDS: hyDROXYzine 25 mg Capsule 50 MG PO (22:22)
[2021-01-06] MEDS: trazodone 50 mg Tablet PO (22:22)
--- NOTE | 2021-01-06 22:37 | PC.NURSE ---
Addendum entered by Joycelyn Blackwell RN 01/06/21 23:06: Pt is sleeping at this time, medication is effectively relieving symptoms of anxiety and insomnia Original Note: PRN Vistaril 50mg PO given for anxiety Trazodone 50mg PO given for sleep onset.
--- NOTE | 2021-01-06 23:39 | PC.NURSE ---
pt requested meds for sleep and anxiety. trazodone 50mg po for sleep and vistaril 50mg po for anxiety given.
--- NOTE | 2021-01-07 01:48 | PC.NURSE ---
pt has been resting quietly with both eyes closed since meds given at [address] last [address].
[2021-01-07 06:00] VITALS: BP 108/69; PULSE 66; RESP 20; TEMP 36.6; O2SAT 100
--- NOTE | 2021-01-07 09:26 | PC.NURSE ---
refused scheduled Abilify
--- NOTE | 2021-01-07 11:10 | PM.NDC ---
Diagnoses at Discharge Discharge Diagnosis (1) Suicidal ideation: Status: Acute (2) Adjustment disorder with depressed mood: Status: Acute (3) Schizophrenia: Status: Acute (4) Borderline intellectual functioning: Status: Acute Reason for Visit Reason for Visit: STRESSED Brief History: History of Present Illness Jeremiah Power is a 35 year old male with a long history of alcohol dependence, methamphetamine use, marijuana use, depression, schizophrenia and borderline intellectual functioning, who presents to the ED with suicidal ideation without a plan. The ED note states: HPI Narrative: 35-year-old male patient comes in today slightly agitated. [place] a way home for a couple of days. Patient states he had not eaten or drinking anything but patient appears well and clean. Patient states he is suicidal but does not have a specific plan. Patient does have a history of alcohol dependence with other substance abuse but has not drank or used today. Patient does have a history of suicidal ideation and hospitalization with last admission being in June. Patient was seen in October in the emergency room for an evaluation but was discharged for emergency department. Patient denies any routine medications at this time. Patient denies any hallucinations. The patient states that, as stated above, he became homeless. He had been parking his camper at a family member's house, but was told he had to leave for a few days. [place], promising to return with some food. But they did not return. So, he was both out of food, and felt abandoned. Another concern family member called the police to check on him at the [place], and he ask the officer to bring him to the [facility] ED. He tells me, now I am homeless again, stressed out, and wants to . He has no specific plan to commit suicide. He does feel helpless, hopeless and worthless. The patient has a past history of schizophrenia, and tells me that he got [facility] the [facility] permanently when he stripped naked to walk to the river. When I ask about this, he said Deon told me to do it. Upon further exploration, he was hearing the voice of the biblical prophet Deon, who in a famous Bible passage, told someone else to strip naked and bathe in a river. The patient was feeling this was happening to him. The patient says he is still hearing voices. In addition, the patient has a past history of borderline intellectual function. 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 The patient is on probation and needs to finish community service, but cannot figure out how to do it. The patient denies recent alcohol or drug use. He says he smokes 2 packs of cigarettes per day. Urine drug screen showed the presence of cannabinoids, but was otherwise negative for all substances tested. Blood alcohol level was negative. Psychiatric history: As above. Substance use history: As above. Family history: Patient denies mental health or addiction issues on either side of the family and denies suicide attempts or completions in the family. Psychosocial history: The patient says he was born and raised in [place]. Legal history: Currently on probation and needs to do community service Medical history: The patient says he has had 2 hernia surgeries and has a hernia currently which does not cause him problems. Denies any other significant medical history. SIDNEY Cates's note from 12/17/20 states: [facility] was notified that Client arrived at [facility]. [facility] brought Client to the consultation room, as well as met [facility]'s account group supervisor. [facility] observed Client to have kym shorts that appeared to be have a variety of stains, a shirt that had holes throughout, shoes that barley held the soles, as well as perspiration on Client's forehead. [facility]'s account group supervisor attempted to address a concern regarding Client's behaviors with his treatment team. Client appeared to be confused then became angry, and short with the account group supervisor. Client stated I'll just leave. The account group supervisor attempted to explain that [facility] wanted to provide services to him, but wanted to address this concern to prevent further instances from occurring. Client explained that he didn't understand the conversation, then stormed out of the consultation room into the waiting room. After a short while, SIDNEY observed that Client began knocking on the window to return to the consultation room. SIDNEY and her account group supervisor met with Client again. The Drilling Field Operator asked Client how [facility] can help him. Client continued to express his anger and frustrations as he explained that he is homeless, tired, and hungry. SIDNEY and her Drilling Field Operator utilized reflective listening as Client explained his current living situation meaning that he has to remove his camper on 12/20/2020. CSS asked Client if he had a plan to move his camper to a relatives or a park. Client answered in an agitated voice, I have no place to go. I don't know where to begin when trying to work things out. [facility] Drilling Field Operator encouraged Client to research the local [employer] sm[facility] in the area. Client complied with this request and learned that there are no current availabilities. Client is unsure what he will do, and isn't sure how [facility] can assist him. [facility] explained that he is on the waiting list as he applied for [facility] through [employer]. Client explained that he doesn't have any food, but that he had eaten the day before. [facility]'s Drilling Field Operator offered to get Client something to eat. [facility] confirmed with Client that his sister who is helping Client complete the necessary paperwork for benefits was still assisting Client with this process. Client answered yes. I just learned that I have Medicaid now. Lastly, CSS, Client, and CSS Drilling Field Operator discussed another stressor Client identified which is his community service hours for his probation. Client explained that he was frustrated that he couldn't figure the hours he has completed thus far. [facility]'s Drilling Field Operator asked Client if he had the paper that held the hours he's completed this far, Client answered yes. and provided the document. It was determined that Client has completed 31 hours of community service at this time. Client became upset and stated I'm supposed to have this completed by December. I'll just commit another felony and go back to half-way. Then I will have a place to stay and food. [facility]'s Drilling Field Operator explained again to Client that [facility] wanted to assist Client with finding resources that improved Client's functioning. [facility]'s Drilling Field Operator asked Client if he would be willing to work with a male squaring machine operator. Client answered absolutely not. I will not work or talk with a male. [facility]'s Drilling Field Operator explained the importance of exhibiting appropriate behaviors and asked if Client was willing to reschedule with [facility] for the following week. Client answered I guess. CSS and Client discussed their availability and scheduled an appointment for the following week. [facility] asked Client if he had any questions at this time. Client answered no. [facility] thanked Client for his time and walked Client back to the waiting room. CSS documented encounter in [facility]. Action Plan: Client will attend scheduled appointments and utilize [facility] as needed. CSS Return Plan: Follow up with Client the following week. Client Response: I'm supposed to have this completed by December. I'll just commit another felony and go back to half-way. Then I will have a place to stay and food. Hospital Course Hospital Course He slowly acclimated to the individual, group and milieu therapies provided. Home meds were continued and Vistaril was added as needed. He showed modest improvement but was able to contract for safety prior to discharge. During the hospitalization, patient had routine laboratory studies which were within normal limits except for few outliers. Additionally there was a general medical evaluation which was also within normal limits and revealed no new acute processes. Discharge Summary: At the time of discharge, lethality was denied and psychosis was resolving. Mood and anxiety were well managed. Patient endorsed a plan to avoid all drugs of abuse and follow-up with the aftercare recommendations of the treatment team. Patient was evaluated and deemed to be absent credible lethality, and had achieved the maximum benefit from an inpatient hospitalization, so was discharged. Involuntary Hold Information 96 Hour Hold: 96 Hour Involuntary Admission: No Mental Status Exam MSE Comments: This is a well-nourished, well-developed white male in hospital scrubs with adequate dress, grooming and eye contact. No abnormal movements except for resolving mild psychomotor retardation. Cooperative with exam in no acute distress. Speech was more normal rate and volume. Mood described as okay, affect congruent. Thought process organized. Thought content: Patient denied suicidal or homicidal ideation. There are no delusions reported or noted, he denied any auditory or visual hallucinations. Attention and concentration were intact and memory appeared reliable but none were formally tested. He is alert and oriented x3. Insight and judgment are fair, impulse control is improving. Discharge Data Vitals: Last Vital Signs Temp 97.8 F 01/07/21 06:00 Pulse 66 01/07/21 06:00 Resp 20 H 01/07/21 06:00 BP 108/69 01/07/21 06:00 Pulse Ox 100 01/07/21 06:00 Discharge Plan Discharge Patient Disposition: Home Condition: Stable Prescriptions: New hydroxyzine pamoate 25 mg Capsule 50 mg PO Q6H PRN (Reason: Anxiety) 30 Days Qty: 120 RF: 1 Continued ibuprofen 800 mg Tablet 800 mg PO TID PRN (Reason: Pain) RF: 0 trazodone 50 mg Tablet 50 mg PO BEDTIME PRN (Reason: Sleep) 30 Days Qty: 30 RF: 1 aripiprazole 10 mg Tablet 10 mg PO DAILY 30 Days Qty: 30 RF: 1 Discharge Orders: Discharge Order (Routine); Ordered 01/07/21 Ordered By: Tomi Hoyos Referrals: [facility] [Outside] - 1-3 days (Call to schedule an appointment to complete a JASSON application. ) Tasia Azar, PMHNP [Staff Physician] - 01/17/21 9:45 am Discharge Diet: Regular Discharge Activity: Resume usual activity Patient Instructions: Hydroxyzine (By mouth), Anxiety (DC), Opioid Safety Discharge Attestations NPU Time Spent in Discharge Care*: less than 30 min Specific Discharge Activities: Specific discharge activities: educating patient, discussing with adult protective caseworker/social workers/dc planners, documenting/other paperwork and evaluating patient/reviewing data Status at Discharge: Cognitive status at discharge: cognitively intact, Behavioral status at discharge: can be uncooperative, Coding Level of Care Code Acute [facility] DC note Diagnoses Suicidal ideation R45.851 Adjustment disorder with depressed mood F43.21 Schizophrenia F20.9 Borderline intellectual functioning R41.83
[2021-01-07 11:13] VITALS: BP 108/69; PULSE 66; RESP 20; TEMP 36.6; O2SAT 100
== END 2021-01-07 12:30 | disposition home or self-care (01) | DRG 881 ==
LOC: ER 21:15 → NP 22:26
PROVIDERS: Admitting Provider Psychiatry & Neurology Child & Adolescent Psychiatry; Emergency Provider Nurse Practitioner Family; Visit Provider Psychiatry & Neurology Child & Adolescent Psychiatry
DX: F43.21 Adjustment disorder with depressed mood (principal); F15.20 Other stimulant dependence, uncomplicated; R45.851 Suicidal ideations; F10.20 Alcohol dependence, uncomplicated; F12.20 Cannabis dependence, uncomplicated; F20.9 Schizophrenia, unspecified; F79 Unspecified intellectual disabilities; Z59.00 Homelessness unspecified; F17.210 Nicotine dependence, cigarettes, uncomplicated
CPT/HCPCS: 80053; 80306; 80307; 81003; 84443; 85025; 97150; 97165; 99285; Q0162

== ENCOUNTER 2021-11-03 00:39 | Emergency (ER) | payer MEDICAID, SELFPAY ==
[2021-11-03 00:42] VITALS: BP 136/89; PULSE 71; RESP 24; TEMP 36.4; O2SAT 100; BMI 21.2
--- NOTE | 2021-11-03 01:13 | CTR_ITS ---
PROCEDURE INFORMATION: Exam: CT Abdomen And Pelvis Without Contrast Exam date and time: 11/03/2021 1:37 AM Age: 35 years old Clinical indication: Pain; Other: L flank/ testicular; Prior surgery; Surgery date: 6+ months; Surgery type: Inguinal hernia repair; Additional info: Left flank pain TECHNIQUE: Imaging protocol: Computed tomography of the abdomen and pelvis without contrast. Radiation optimization: All CT scans at this facility use at least one of these dose optimization techniques: automated exposure control; mA and/or kV adjustment per patient size (includes targeted exams where dose is matched to clinical indication); or iterative reconstruction. COMPARISON: CT abdomen pelvis w con* [id number] 05/24/2020 1:34 PM RADIATION DOSE METRICS: Total DLP (mGy-cm): 488.07 FINDINGS: Liver: Normal. No mass. Gallbladder and bile ducts: Subtle densities are seen within the gallbladder neck possibly representing gallbladder sludge tiny gallstones. Pancreas: Normal. No ductal dilation. Spleen: Normal. No splenomegaly. Adrenal glands: Normal. No mass. Kidneys and ureters: Normal. No hydronephrosis. Stomach and bowel: Unremarkable. No obstruction. No mucosal thickening. Appendix: The appendix is visualized and is normal in configuration. Intraperitoneal space: Unremarkable. No free air. No significant fluid collection. Vasculature: Unremarkable. No abdominal aortic aneurysm. Lymph nodes: Unremarkable. No enlarged lymph nodes. Urinary bladder: Unremarkable as visualized. Reproductive: Unremarkable as visualized. Bones/joints: Unremarkable. No acute fracture. Soft tissues: Unremarkable. CT/CT kidney stone [id number] IMPRESSION: 1. There are no acute abdominal findings. 2. Subtle density seen in the gallbladder neck compatible with gallbladder sludge and tiny gallstones. There are no inflammatory changes present to suggest cholecystitis. 3. Normal appendix 4. No evidence for ureteral obstruction
--- NOTE | 2021-11-03 01:19 | W.ED.ABDPA2 ---
HPI - Abdominal Pain General: Chief Complaint: Abdominal Pain Stated Complaint: ABD Pain Time Seen by Provider: 11/03/21 00:44 Source: patient Mode of arrival: ambulatory Limitations: no limitations History of Present Illness: 35-year-old male who states that at 5 PM he started having sudden severe left-sided pain. He states that his left side of his abdomen rating to his left testicle. States pain is a 10 out of 10 he has had nausea with the pain denies any fever denies any worsening proving factors denies any diarrhea. Associated Symptoms: Reports nausea; Denies chills and fever(s) Review of Systems Const: Denies: fever(s), chills, body aches or change in appetite Eyes: Denies: blurry vision or eye discomfort ENMT: Denies: throat pain or dental pain Card: Denies: chest pain Resp: Denies: dyspnea GI: Reports: abdominal pain and nausea : Reports: flank pain Musc: Denies: neck pain or back pain Skin/Breast: Denies: rash Neuro: Denies: headache(s) Psych: Denies: depression Thomas/Lymph: Denies: easy bruising All/Imm: Denies: urticaria PFSH ED PFSH: Medical History Acute psychosis Alcohol dependence, in remission Alcohol dependence, uncomplicated Borderline intellectual functioning Cannabis dependence, in remission Cannabis dependence, uncomplicated Cigarette nicotine dependence without complication Depressive disorder Major depressive disorder, recurrent, severe with psychotic symptoms Methamphetamine dependence Other stimulant dependence, in remission Psychiatric care Social History Smoking and tobacco status: current every day smoker cigarettes Packs smoked per day: 1 Alcohol intake: current Alcohol intake frequency: few times a month Physical Exam Const: COMMON NORMALS: patient oriented x3 and healthy appearing HENMT: COMMON NORMALS: normocephalic and atraumatic HEAD & SCALP: normocephalic and atraumatic Eye: COMMON NORMALS: Equal, round and reactive pupils present and EOMs intact bilaterally PUPIL: Yes Equal, round and reactive pupils present Neck/C-Spine: COMMON NORMALS: full ROM and supple Chest: COMMONS NORMALS: normal inspection of the chest and normal palpation of entire chest wall Resp: COMMON NORMALS: normal respiratory effort, No retractions, No use of accessory muscles and clear to auscultation bilaterally AUSCULTATION: clear to auscultation bilaterally Cardio: COMMON NORMALS: regular rate, regular rhythm and No murmurs present (Cardio) RATE: regular rate RHYTHM: regular rhythm GI: COMMON NORMALS: Normal to inspection, nondistended, normoactive bowel sounds present, Soft to palpation, non-tender and no masses PALPATION: Yes Soft to palpation Extremity: COMMON NORMALS: normal to inspection and full ROM Neuro: COMMON NORMALS: patient oriented x3, moves all extremities and no focal motor deficits Psych: COMMON NORMALS: mental status grossly normal, Normal thought process present and cooperative THOUGHT PROCESS: Normal thought process present Skin: COMMON NORMALS: no rashes or lesions noted and no wounds GENERAL SKIN EXAM: no rashes or lesions noted Course Vital Signs: Vital signs: Vital Signs Temperature 97.6 F 11/03/21 00:42 Pulse Rate 83 11/03/21 03:58 Respiratory Rate 18 11/03/21 03:58 Blood Pressure 119/70 11/03/21 03:58 Pulse Oximetry 96 11/03/21 03:58 Oxygen Delivery Me thod 11/03/21 03:44 MDM - Abdominal Pain Medical Decision Making Patient presents here with abdominal pain CT and ultrasound here negative his pain is much improved patient could have a stone that passed he is well-appearing here he stable for discharge he is to follow-up with his PCP along with surgeon return if worsening he understands agrees to plan. Lab Data : 11/03/21 01:17 11/03/21 01:17 Labs/Radiology: Radiology Impressions Abdomen/Pelvis CT 11/03/21 01:13 IMPRESSION: 1. There are no acute abdominal findings. 2. Subtle density seen in the gallbladder neck compatible with gallbladder sludge and tiny gallstones. There are no inflammatory changes present to suggest cholecystitis. 3. Normal appendix 4. No evidence for ureteral obstruction Scrotum Ultrasound 11/03/21 03:04 IMPRESSION: Normal bilateral scrotal sonography. Laboratory Results WBC 9.5 10^3/uL (4.0-10.0) 11/03/21 01:17 RBC 4.76 10^6/uL (4.1-5.3) 11/03/21 01:17 Hgb 15.7 g/dL (11.7-16.6) 11/03/21 01:17 Hct 46.1 % (42.0-52.0) 11/03/21 01:17 MCV 96.8 fl (80-94) H 11/03/21 01:17 MCH 33.0 pg (28.0-34.0) 11/03/21 01:17 MCHC 34.1 g/dL (30.0-36.0) 11/03/21 01:17 RDW 11.9 % (12.1-15.1) L 11/03/21 01:17 Plt Count 216 10^3/cmm (130-400) 11/03/21 01:17 MPV 9.6 fL (7.4-10.4) 11/03/21 01:17 Neut % (Auto) 66.5 % 11/03/21 01:17 Lymph % (Auto) 23.5 % 11/03/21 01:17 [place] % (Auto) 8.6 % 11/03/21 01:17 Eos % (Auto) 0.9 % 11/03/21 01:17 Baso % (Auto) 0.3 % 11/03/21 01:17 Neut # (Auto) 6.34 10^3/uL (1.8-7.7) 11/03/21 01:17 Lymph # (Auto) 2.2 10^3/uL (0.8-4.8) 11/03/21 01:17 [place] # (Auto) 0.8 10^3/uL (0.2-0.9) 11/03/21 01:17 Eos # (Auto) 0.1 10^3/uL (0.0-0.8) 11/03/21 01:17 Baso # (Auto) 0.0 10^3/uL (0.0-0.1) 11/03/21 01:17 Nucleated RBC % (auto) 0 % 11/03/21 01:17 Nucleated RBCs # 0.0 /100WBC 11/03/21 01:17 Sodium 141 mmol/L (136-145) 11/03/21 01:17 Potassium 3.8 mmol/L (3.5-5.1) 11/03/21 01:17 Chloride 105 mmol/L (98-107) 11/03/21 01:17 Carbon Dioxide 27 mmol/L (22-29) 11/03/21 01:17 Anion Gap 12.8 (5-19) 11/03/21 01:17 BUN 14 mg/dL (6-20) 11/03/21 01:17 Creatinine 1.0 mg/dL (0.7-1.2) 11/03/21 01:17 GFR Calculation 84.5 mL/min (90-130) L 11/03/21 01:17 Glucose 147 mg/dL (65-115) H 11/03/21 01:17 Calculated Osmolality 295 mOsm/kg (285-295) 11/03/21 01:17 Calcium 9.0 mg/dL (8.5-10.5) 11/03/21 01:17 Total Bilirubin 0.2 mg/dL (0.15-1.2) 11/03/21 01:17 AST 19 U/L (0-40) 11/03/21 01:17 ALT 14 U/L (0-41) 11/03/21 01:17 Alkaline Phosphatase 116 IU/L (40-130) 11/03/21 01:17 Total Protein 6.7 g/dL (6.6-8.7) 11/03/21 01:17 Albumin 4.2 g/dL (3.5-5.2) 11/03/21 01:17 Globulin 2.5 g/dL (1.3-4.6) 11/03/21 01:17 Lipase 34 U/L (13-60) 11/03/21 01:17 Urine Color Yellow (Yellow) 11/03/21 02:30 Urine Appearance Clear (CLEAR) 11/03/21 02:30 Urine pH 6 (5-7) 11/03/21 02:30 Ur Specific [place] 1.025 (1.005-1.030) 11/03/21 02:30 Urine Protein Neg (Negative) 11/03/21 02:30 Urine Glucose (UA) Norm (Normal) 11/03/21 02:30 Urine Ketones Negative (Negative) 11/03/21 02:30 Urine Blood Neg (Negative) 11/03/21 02:30 Urine Nitrate Negative (Negative) 11/03/21 02:30 Urine Bilirubin Neg (Negative) 11/03/21 02:30 Urine Urobilinogen Neg mg/dL (Negative) 11/03/21 02:30 Ur Leukocyte Esterase Negative (Negative) 11/03/21 02:30 Discharge Plan Discharge Patient Disposition: Home Clinical Impression: Abdominal pain Qualifiers: Abdominal location: generalized Qualified Code(s): R10.84 - Generalized abdominal pain Condition: Stable Prescriptions: No Action ibuprofen 800 mg Tablet 800 mg PO TID PRN (Reason: Pain) hydroxyzine pamoate 25 mg Capsule 50 mg PO Q6H PRN (Reason: Anxiety) 30 Days Qty: 120 1RF trazodone 50 mg Tablet 50 mg PO BEDTIME PRN (Reason: Sleep) 30 Days Qty: 30 1RF aripiprazole 10 mg Tablet 10 mg PO DAILY 30 Days Qty: 30 1RF Discharge Orders: Discharge ED (Routine); Ordered 11/03/21 Ordered By: Umberto Beyer Referrals: Manuel Storey MD [Physician] - 1-3 days Discharge Diet: Advance as tolerated Discharge Activity: Resume usual activity Patient Instructions: Abdominal Pain (ED) Coding Level of Care Code ED Holistic Specialist for Chg Fwd Exam Comprehensive
[2021-11-03] MEDS: ondansetron 2 mg/ML SDV 2 mL 4 MG IVP (01:20)
[2021-11-03 01:22] LABS: Basophils % 0.3 %; Eosinophils # 0.1 10^3/uL (0.0-0.8); Eosinophils % 0.9 %; Hematocrit 46.1 % (42.0-52.0); Hemoglobin 15.7 g/dL (11.7-16.6); Lymphocytes # 2.2 10^3/uL (0.8-4.8); Lymphocytes % 23.5 %; Mean Corpuscular HGB Conc 34.1 g/dL (30.0-36.0); Mean Corpuscular Volume 96.8 fl (80-94); Mean Platelet Volume 9.6 fL (7.4-10.4); Monocytes # 0.8 10^3/uL (0.2-0.9); Monocytes % 8.6 %; Neutrophils # 6.34 10^3/uL (1.8-7.7); Neutrophils % 66.5 %; Nucleated Red Blood Cells % 0 %; Platelet Count 216 10^3/cmm (130-400); Red Blood Count 4.76 10^6/uL (4.1-5.3); Red Cell Distribution Width 11.9 % (12.1-15.1); White Blood Count 9.5 10^3/uL (4.0-10.0)
[2021-11-03] MEDS: sodium chloride 0.9% 1,000 ML 999 ML IV (01:22)
[2021-11-03 01:23] VITALS: RESP 22
[2021-11-03] MEDS: HYDROmorphone 1 mg/mL INJ 1 mL IVP (01:23)
[2021-11-03 01:43] LABS: Alanine Aminotransferase 14 U/L (0-41); Albumin Level 4.2 g/dL (3.5-5.2); Alkaline Phosphatase 116 IU/L (40-130); Anion Gap 12.8 (5-19); Aspartate Amino Transferase 19 U/L (0-40); Blood Urea Nitrogen 14 mg/dL (6-20); Carbon Dioxide 27 mmol/L (22-29); Chloride 105 mmol/L (98-107); Globulin 2.5 g/dL (1.3-4.6); Glomerular Filtration Rate 84.5 mL/min (90-130); Glucose 147 mg/dL (65-115); Lipase 34 U/L (13-60); Osmolality Calculated 295 mOsm/kg (285-295); Potassium 3.8 mmol/L (3.5-5.1); Sodium 141 mmol/L (136-145); Total Bilirubin 0.2 mg/dL (0.15-1.2); Total Protein 6.7 g/dL (6.6-8.7)
[2021-11-03 02:37] LABS: Add Urine Microscopic? NO; Charge for UA Resulting for Rev
[2021-11-03 02:38] LABS: Bilirubin Urine Neg (Negative); Blood Urine Neg (Negative); Glucose Urine UA Norm (Normal); Ketones Urine Negative (Negative); Leukocyte Esterase Urine Negative (Negative); Nitrate Urine Negative (Negative); Protein Urine Neg (Negative); Specific Gravity, Urine 1.025 (1.005-1.030); Urine Appearance Clear (CLEAR); Urine Color Yellow (Yellow); Urobilinogen Urine Neg (Negative); pH Urine 6 (5-7)
[2021-11-03 02:40] VITALS: BP 130/90; PULSE 60; RESP 20; O2SAT 98
--- NOTE | 2021-11-03 03:04 | USR_ITS ---
PROCEDURE INFORMATION: Exam: US Scrotum Exam date and time: 11/03/2021 3:13 AM Age: 35 years old Clinical indication: Groin pain and scrotum pain; Additional info: Test pain TECHNIQUE: Imaging protocol: Real-time ultrasound of the scrotum and contents with color Doppler and image documentation. COMPARISON: US Testicular [id number] 05/28/2018 11:10 PM FINDINGS: Right testicle: The right testis measures 4.4 x 2.5 x 3.2 cm. There is normal echogenicity seen within the testicular parenchyma. Vascular flow is documented within the right testis with color Doppler and duplex waveform sonography. The left testis measures 4.7 x 2.5 x 3.2 cm. Normal echogenicity seen within the left testicular parenchyma. Normal vascular flow is documented within the left testis with color Doppler and duplex waveform sonography. Left testicle: See Right testicle finding. Epididymides: Normal. Scrotum: Normal. US/US scrotum [id number] IMPRESSION: Normal bilateral scrotal sonography.
[2021-11-03 03:44] VITALS: BP 120/80; PULSE 61; O2SAT 94
[2021-11-03 03:58] VITALS: BP 119/70; PULSE 83; RESP 18; O2SAT 96
--- NOTE | 2021-11-04 16:58 | DCPLANNER ---
Addendum entered by Flaquita Cruz 11/07/21 16:43: Patient had a follow up appointment scheduled for 11.06.[address] Talavera at [facility] - patient did attend appointment. Original Note: lean manager had message to schedule a follow up appointment for patient with general surgery. lean manager sent patients information to the front office staff at general surgery. Patients information will be printed and reviewed. Clinic will call patient with appointment information.
== END 2021-11-03 03:57 | disposition home or self-care (01) ==
PROVIDERS: Emergency Provider Emergency Medicine
DX: R10.84 Generalized abdominal pain (principal); F17.210 Nicotine dependence, cigarettes, uncomplicated
CPT/HCPCS: 74176; 76870; 80053; 81003; 83690; 85025; 96361; 96374; 96375; 99285; J1170; J2405; J7030

== ENCOUNTER → 2021-11-06 12:41 | Outpatient (BNVA) | payer MEDICAID, SELFPAY | PROVIDERS: Visit Provider Surgery | DX: R10.84 Generalized abdominal pain; K80.20 Calculus of gallbladder without cholecystitis without obstruction; R10.9 Unspecified abdominal pain | CPT/HCPCS: 99203 ==

== ENCOUNTER 2021-11-08 15:56 | Outpatient (CLI) | payer MEDICAID, SELFPAY ==
--- NOTE | 2021-11-08 16:00 | US_ITS ---
WS: [id number] ULTRASOUND ABDOMEN LIMITED CLINICAL INFORMATION: abdominal pain COMPARISON: CT November 03, 2021 FINDINGS: Liver Size: Normal. Craniocaudal length: 14.3 cm. Echogenicity: Normal. Surface nodularity: None. Mass (size and location): None. Bile ducts Intrahepatic ducts: Normal. Common bile duct diameter: 0.2 cm. Gallbladder Shadowing cholelithiasis. Gallstones: Present Gallbladder sludge: None. Gallbladder wall thickening: None. Pericholecystic fluid: None. Sonographic Casas sign: Absent. Pancreas Normal as visualized. Right kidney: Normal. Hydronephrosis: None. Size: 9.4 cm x 5.5 cm x 4.9 cm. Abdominal aorta and IVC Visualized portions are normal. Ascites: None. US/US liver [id number] IMPRESSION: 1. Normal liver. 2. Shadowing cholelithiasis. No gallbladder wall thickening or pericholecystic fluid. 3. Normal common bile duct. 4. No hydronephrosis in RIGHT kidney.
== END 2021-11-08 15:57 | disposition home or self-care (01) ==
LOC: RAD 15:57
PROVIDERS: Visit Provider Surgery
DX: R10.9 Unspecified abdominal pain (principal); K80.20 Calculus of gallbladder without cholecystitis without obstruction
CPT/HCPCS: 76705

== ENCOUNTER → 2021-11-11 13:52 | Outpatient (BNVA) | payer MEDICAID, SELFPAY | PROVIDERS: Visit Provider Surgery | DX: R10.9 Unspecified abdominal pain (principal); K80.20 Calculus of gallbladder without cholecystitis without obstruction | CPT/HCPCS: 99024 ==

== ENCOUNTER 2021-11-12 09:38 | Day surgery (SDC) | payer MEDICAID, SELFPAY ==
[2021-11-12] VITALS (14 sets, daily range): BP systolic 125–145; BP diastolic 81–105; PULSE 54–76; RESP 11–22; TEMP 36.1–36.7; O2SAT 96–100
--- NOTE | 2021-11-12 10:33 | ANES.PREANE2 ---
Pre-Anesthetic Assessment Height/Weight: Height 1.7 m Weight 81.647 kg Temp Pulse Resp BP Pulse Ox O2 Del Method 97.8 F 68 16 140/88 96 11/12/21 10:14 11/12/21 10:14 11/12/21 10:14 11/12/21 10:14 11/12/21 10:14 11/12/21 10:18 Preop Diagnosis: Symptomatic cholelithiasis Operation Date: 11/12/21 11:30 Proposed Procedures p Laparoscopic Cholecystectomy 95970,R10.9(Not Applicable) - Thierry Talavera MD Familial anesthetic complications: None Was Beta Jesusita taken within 24 hours: N/A Was Clonidine taken within 24 hours: N/A Last intake: > 8hrs Social Tobacco and No alcohol MJ, ETOH abuse, Methamphetamine ( no recent use) Exam alert, oriented x 3, clear to auscultation bilaterally and regular rate & rhythm Airway Mallampati: Class II Dentition: full Neuropsych SChizophrenia, low intellectual functioning Anesthetic Plan ASA status: 3 Anesthesia: General Risk of > 500 ml blood loss (7ml/kg in children): No Medications/Allergies Home Medications Medication Instructions Recorded Confirmed Last Taken Type No Known Home Medications 11/11/21 11/11/21 Unknown History Allergies Allergy/AdvReac Type Severity Reaction Status Date / Time Penicillins Allergy Unknown Verified 11/11/21 16:36 [facility] Anesthesia Medical History Acute psychosis Alcohol dependence, in remission Alcohol dependence, uncomplicated Borderline intellectual functioning Cannabis dependence, in remission Cannabis dependence, uncomplicated Cigarette nicotine dependence without complication Depressive disorder Major depressive disorder, recurrent, severe with psychotic symptoms Methamphetamine dependence Other stimulant dependence, in remission Psychiatric care Social History Smoking and tobacco status: current every day smoker (1 pack a day ) cigarettes Packs smoked per day: 1 Alcohol intake: current Alcohol intake frequency: few times a month Data Anesthesia Cardiac Studies: No Data to Display
[2021-11-12] MEDS: sodium chloride 0.9% 1,000 ML 30 ML IV (10:43)
[2021-11-12] MEDS: acetaminophen 1,000 MG/100 ML PIGGYBACK 400 MG IV (10:44)
--- NOTE | 2021-11-12 10:45 | W.PM.OPSUD ---
Surgery/Procedure H&P Update DATE OF PROCEDURE: November 12, 2021 DATE H&P PERFORMED: 11/11/21 H&P UPDATE INFORMATION: I have reviewed H&P completed within last 30 days, I have examined patient prior to procedure and No changes to prior documentation PREOP DIAGNOSIS: Symptomatic cholelithiasis PRIMARY INDICATION FOR PROCEDURE: The same PLANNED PROCEDURE: Operation Date: 11/12/21 11:30 Proposed Procedures p Laparoscopic Cholecystectomy 29536,R10.9(Not Applicable) - Thierry Talavera MD
[2021-11-12] MEDS: ciprofloxacin 400 MG/200 ML PREMIX 200 MG IV (10:51)
--- NOTE | 2021-11-12 12:14 | P.OP_ITS ---
Operative Report Date of procedure: November 12, 2021 Pre-op diagnosis: Preop Diagnosis Symptomatic cholelithiasis Post-op diagnosis: Chronic calculus cholecystitis and hepatomegaly Post-op findings: Fatty liver Procedure done: 1-Laparoscopic cholecystectomy 2-Primary repair of umbilical hernia Implants: Surgicel at the gallbladder fossa Specimens removed/disposition: Gallbladder and contents Surgeon: Thierry Talavera MD Junior Sales Representative: Surgical estelita Swartz and Kin Circulating nurses [employer] and [place] Anesthesia: General (LUDWIG Pool) Estimated blood loss (mL): 25 IV fluids (mL): 400 Procedure: Patient was identified in the holding area and taken back to the operative suite, placed in supine position intubated by anesthesia . Time-out was done verifying the patient's name/date of /planned procedure and destination after the procedure, all were in agreement. SCDs confirmed to be functioning, preoperative antibiotics administered per protocol, and beta david protocol was confirmed. Patient was appropriately secured to the table, footboard was applied to the OR table, before prep and drape anesthesia was asked to tilt the table back and forth to make sure that the patient is appropriately secured and she was. Prep and drape of the abdomen was done under the usual sterile technique, followed by that supraumbilical skin incision, incidental umbilical hernia was appreciated in the form of preperitoneal fat that was dissected and repaired at the end of the procedure. Skin incision was done by a 15 blade knife, and stay sutures were applied to the fascia and Padron trocar technique was used to enter the abdominal without injuring any abdominal viscera, started by low flow gas insufflation followed by a high flow, started with a 10 mm laparoscope and under direct vision there was no evidence of any injuries, the scope then switched to a 30? ,10 millimeter scope and under direct visualization 5 millimeter trocar was inserted in the epigastric region followed by two 5 mm trocars were inserted in the right upper quadrant that was done after injection of local lidocaine 2% at all incision sites. Gallbladder showed chronic cholecystitis and Fatty Liver Patient was then positioned in the head up and tilted to the left. Ratcheted forceps were introduced into the lateral most 5mm port and was applied unto the fundus of the gallbladder cephalad and using Bullet forceps the infundibulum of the gallbladder was retracted laterally. Using [place] forceps then L-hook cautery to dissect the peritoneum overlying the Calot's triangle which was then opened medially and laterally until the cystic duct and the cystic artery were skeletonized. Dissection was carried along the body of the gallbladder and after ensuring critical view of safety was identfied. Cystic duct and cystic artery where seen connected to the gallbladder. Clips were applied on the cystic duct towards the common bile duct 1 towards the gallbladder then divided is in sharp scissors, 2 clips were then applied onto the cystic artery and 1 towards the gallbladder and divided by sharp scissors. Additional clip was added to traversing vessel and divided Dissection was then carried along of the gallbladder from the gallbladder fossa using cautery as well as sharp dissection with heat energy. The gallbladder then was dissected out from the gallbladder fossa totally , cholecystectomy was then achieved and was placed in an Endo Catch bag and then retrieved from the Padron trocar site under direct visualization using a 5 mm 30? scope through the epigastric trocar, specimen was then passed to the circulating nurse to go for permanent pathology,irrigation and hemostasis was done to the gallbladder fossa after hemostasis was secured and pieces of Surgicel were applied at the gallbladder fossa, final survey laparoscopy was done that showed no injuries.Suction irrigation was obtained. Was some oozing from the right 5 mm trocar midclavicular line where I had to add a [id number]-[id number] 2-0 Vicryl Under direct visualization after cauterization to minimize bruising and stop the bleeding The supraumbilical fascial defect was then closed using interrupted number one PDS sutures using a fascial closure device ;Leonard Gonzáles under direct visualization did include the umbilical hernia defect was less than half inch in diameter,following that Gas was allowed to deflate,Trocars were then taken out under direct vision there was no evidence of bleeding. Specimen was passed to the circulating nurse for permanent pathology. No drains were placed and the supraumbilical incision as well as all trocar sites were closed by 3/0 Vicryl followed by 4-0 Monocryl to approximate the skin edges of the incisions ,dressing was applied in the form of surical glue and the patient patient got extubated and was taken to recovery area in a stable condition. Count of sponges,needles and instruments were completed at the end of the procedure I was present for the whole entire procedure.
[2021-11-12] MEDS: fentaNYL 50 mcg/mL INJ 2mL IVP ×2 (12:57→13:23)
--- NOTE | 2021-11-12 13:24 | ANE.PACU2 ---
Inpatient post-anesthesia follow up: Airway intact: Yes Vital signs: Temperature 97.0 F Pulse Rate 64 Respiratory Rate 16 Blood Pressure 134/84 Pulse Oximetry 100 Oxygen Delivery Me thod Room Air Oxygen Flow Rate Fraction of Inspir ed Oxygen Hydration adequate: Yes Nausea and vomiting: No Pain level: 1 Mental status: Baseline
[2021-11-12] MEDS: HYDROcodone-acetaminophen 5-325 mg Tablet 1 TAB PO (14:16)
== END 2021-11-12 15:15 | disposition home or self-care (01) ==
PROVIDERS: Visit Provider Surgery
PROC: 0FT44ZZ Resection of Gallbladder, Percutaneous Endoscopic Approach (ICD-10-PCS; CPT 47562; principal; 2021-11-12 11:10)
DX: K80.10 Calculus of gallbladder with chronic cholecystitis without obstruction (principal); R16.0 Hepatomegaly, not elsewhere classified; K42.9 Umbilical hernia without obstruction or gangrene; F20.9 Schizophrenia, unspecified; F17.210 Nicotine dependence, cigarettes, uncomplicated
CPT/HCPCS: 47562; 88304; J0744; J1100; J2250; J2405; J2704; J2710; J3010; J3490; J7030

== ENCOUNTER → 2021-11-20 08:12 | Outpatient (BNVA) | payer MEDICAID, SELFPAY | PROVIDERS: Visit Provider Surgery | DX: Z09 Encounter for follow-up examination after completed treatment for conditions other than malignant neoplasm (principal) | CPT/HCPCS: 99024 ==

== ENCOUNTER 2021-12-07 14:14 | Emergency (ER) | payer MEDICAID, SELFPAY ==
[2021-12-07 14:20] VITALS: BP 118/70; PULSE 88; RESP 16; TEMP 36.4; O2SAT 96; BMI 23.1
--- NOTE | 2021-12-07 14:41 | W.ED.GENADLT ---
HPI - General Adult General: Chief complaint: General Medical Stated complaint: suture issues post gallbladder removal Time Seen by Provider: 12/07/21 14:40 History of Present Illness: Patient is a 35-year-old male comes to the ED to have surgical incision site checked. Patient had a laparoscopic cholecystectomy on November 06, 2021 and was concerned about one of the sutures on the incision site. A tail of a suture is sticking out of the surgical incision site. Denies any fever, chills, nausea/vomiting. Denies any bleeding or drainage out of incision site and says they are healing well. Associated symptoms: Deny chest pain, dyspnea, headache(s), nausea, rash, palpitations or vomiting Review of Systems Const: Denies: fever(s), chills or fatigue Eyes: Denies: change in vision or eye discomfort ENMT: Denies: throat pain, odynophagia, nasal discharge or nasal congestion Card: Denies: chest pain, palpitations, edema, swelling of feet/ankles, dyspnea on exertion or orthopnea Resp: Denies: dyspnea, productive cough or non-productive cough GI: Denies: abdominal pain, nausea, vomiting, diarrhea, constipation or hematochezia : Denies: flank pain, difficulty urinating, dysuria or hematuria Musc: Denies: neck pain, back pain or extremity swelling Skin/Breast: Reports: surgical incision (Concerned about suture from surgical incision site of abdomen); Denies: rash or new lesions Neuro: Denies: headache(s), numbness in extremities or weakness in extremities PFS ED PFSH: Medical History Acute psychosis Alcohol dependence, in remission Alcohol dependence, uncomplicated Borderline intellectual functioning Cannabis dependence, in remission Cannabis dependence, uncomplicated Cigarette nicotine dependence without complication Depressive disorder Major depressive disorder, recurrent, severe with psychotic symptoms Methamphetamine dependence Other stimulant dependence, in remission Psychiatric care Surgical History (Updated 12/07/21 @ 23:46 by BATOOL Falcon) History of umbilical hernia repair Hx laparoscopic cholecystectomy Social History Smoking and tobacco status: current every day smoker cigarettes Packs smoked per day: 1 Alcohol intake: current Alcohol intake frequency: few times a month Physical Exam Const: COMMON NORMALS: no acute distress, patient oriented x3, healthy appearing and alert GENERAL APPEARANCE: cooperative and comfortable HENMT: COMMON NORMALS: normocephalic HEAD & SCALP: normocephalic MOUTH: Normal oral and palatal mucosa present THROAT: posterior oropharynx normal and uvula midline Neck/C-Spine: COMMON NORMALS: supple GENERAL: Yes normal visual inspection Resp: COMMON NORMALS: normal respiratory effort, No retractions, No use of accessory muscles and clear to auscultation bilaterally AUSCULTATION: clear to auscultation bilaterally Cardio: COMMON NORMALS: regular rate, regular rhythm, S1 normal heart sound present, S2 normal heart sound present, No gallops present (Cardio), No clicks present (Cardio), No murmurs present (Cardio) and Peripheral pulses 2+ throughout RATE: regular rate RHYTHM: regular rhythm HEART SOUNDS: S1 normal heart sound present and S2 normal heart sound present PERIPHERAL PULSES: Peripheral pulses 2+ throughout GI: COMMON NORMALS: Normal to inspection, nondistended, normoactive bowel sounds present, Soft to palpation, non-tender and no masses PALPATION: Yes Soft to palpation OTHER: Tail of a suture was sticking out of incision site on abdomen. No erythema, warmth or drainage noted. Surgical incision sites appear to be healing well and no signs of cellulitis seen. : COMMON NORMALS: Yes no CVA tenderness BLADDER/KIDNEY EXAM: Yes no CVA tenderness Back/Pelvis: COMMON NORMALS: no CVA tenderness Extremity: COMMON NORMALS: normal to inspection Neuro: COMMON NORMALS: patient oriented x3 SENSORIUM/ORIENTATION: Yes alert GAIT: Yes Normal gait present Skin: GENERAL SKIN EXAM: dry skin Course Vital Signs: Vital signs: Vital Signs Temperature 97.5 F L 12/07/21 14:20 Pulse Rate 88 12/07/21 14:20 Respiratory Rate 16 12/07/21 14:20 Blood Pressure 118/70 12/07/21 14:20 Pulse Oximetry 96 12/07/21 14:20 Oxygen Delivery Me thod 12/07/21 14:20 [facility] - General Adult Medical Decision Making Patient is a 35-year-old male comes to the ED to have surgical incision site checked. Patient had a laparoscopic cholecystectomy on November 06, 2021 and was concerned about one of the sutures on the incision site. A tail of a suture is sticking out of the surgical incision site. Vitals are stable. Surgical incision sites are healing well and no signs of any purulent drainage or cellulitis. There appears to be a small suture tail sticking out of 1 incision site on abdomen and a cut it with scissors. Patient was stable for discharge home and told to follow-up with his PCP or the general surgeon at next scheduled appointment. Return ED precautions given. Patient stood agree with plan. Discharge Plan Discharge Patient Disposition: Home Clinical Impression: Encounter for attention to surgical dressings and sutures Condition: Stable Prescriptions: No Action hydrocodone-acetaminophen 5-325 mg tablet 1 tab PO Q6H PRN (Reason: pain) Qty: 28 0RF Discharge Orders: Discharge ED (Routine); Ordered 12/07/21 Ordered By: Ketan Luna Discharge Diet: Regular Discharge Activity: Increase activity as tolerated Activity Restrictions/Additional Instructions: Follow-up with medical provider as directed. Continue taking all home medications as previously prescribed. Return to the ER or your medical provider if condition worsens. Please read and understand discharge instructions. Thank you for choosing [facility] for your healthcare needs today. Please realize this is an emergency room and that we are providing you with a medical screening exam and this may not be complete and all inclusive of all the testing and or work up that you may need to determine your ailment or severity of your illness. It is very important that you follow up as instructed or that you return to the Emergency Department should you have concerns or if your condition changes or worsens in any way. Coding Level of Care Code ED Cardiac Rehab Nurse for Paul Small Exam Comprehensive
== END 2021-12-07 15:02 | disposition home or self-care (01) ==
PROVIDERS: Emergency Provider Physician Assistant
DX: Z48.01 Encounter for change or removal of surgical wound dressing (principal); F17.210 Nicotine dependence, cigarettes, uncomplicated
CPT/HCPCS: 99282

== ENCOUNTER 2022-05-22 21:59 | Inpatient (IN) | payer MEDICAID, SELFPAY ==
[2022-05-22 22:00] VITALS: BP 147/101; PULSE 85; RESP 18; TEMP 36.5; O2SAT 99; BMI 26.6
--- NOTE | 2022-05-22 22:04 | W.ED.PSYCHS ---
HPI - Psych General: Chief Complaint: Psychiatric Symptoms Stated Complaint: DEPRESSION/AMS Time Seen by Provider: 05/22/22 22:04 History of Present Illness: Mr. Power is a 36-year-old gentleman with history of polysubstance abuse and psychiatric disorder presented to the emergency department for psychiatric evaluation. He notes increasing depression in the context of social circumstances. He has not been taking medication and is increasingly hopeless. The patient also has a mumbling rant about the bitches and continues to mumble when I attempted to clarify. Overall course of symptoms has worsened. Intensity is moderate to severe. No other specific changes in health, exacerbating, or alleviating factors identified. Onset (ago): week(s) Duration: getting worse History of same: Yes Context: significant life stressor Associated psychiatric symptoms: depression and racing thoughts Review of Systems General: Reports: 10 or more systems reviewed and unremarkable except in HPI and below PFSH ED PFSH: Medical History Acute psychosis Alcohol dependence, in remission Alcohol dependence, uncomplicated Borderline intellectual functioning Cannabis dependence, in remission Cannabis dependence, uncomplicated Cholelithiasis Cigarette nicotine dependence without complication Depressive disorder Major depressive disorder, recurrent, severe with psychotic symptoms Methamphetamine dependence Other stimulant dependence, in remission Polysubstance abuse Psychiatric care Surgical History History of umbilical hernia repair Hx laparoscopic cholecystectomy Family History Family/Other Cancer uncle--lung uncle--kidney/liver Diabetes Stroke Grandmother Dementia Other CAD (coronary artery disease) Hyperlipidemia Hypertension Lung disease Psychiatric illness Denies family history of Clotting disorder Chronic kidney disease (CKD) Anesthesia complication Bleeding disorder Social History Smoking and tobacco status: current every day smoker cigarettes Packs smoked per day: 1 [ Other cigarette details: 1PPD, 25PY] Alcohol intake: current Alcohol intake frequency: few times a month Lives independently: Yes Marital status: Single Number of children: 0 Current occupational status: unemployed Current gender identity: Male Physical Exam Const: COMMON NORMALS: alert GENERAL APPEARANCE: cooperative and well developed HENMT: COMMON NORMALS: normocephalic and atraumatic HEAD & SCALP: normocephalic and atraumatic Eye: COMMON NORMALS: conjunctivae normal CONJUNCTIVA: Yes conjunctivae normal SCLERA: sclerae normal Neck/C-Spine: COMMON NORMALS: supple GENERAL: Yes trachea midline Resp: COMMON NORMALS: clear to auscultation bilaterally EFFORT & INSPECTION: Yes able to speak in complete sentences AUSCULTATION: clear to auscultation bilaterally Cardio: COMMON NORMALS: regular rate and regular rhythm RATE: regular rate RHYTHM: regular rhythm GI: COMMON NORMALS: Soft to palpation PALPATION: Yes Soft to palpation and No Tenderness to palpation present (GI) Extremity: GENERAL: Yes normal exam except as noted and No edema Neuro: COMMON NORMALS: moves all extremities SENSORIUM/ORIENTATION: Yes alert and No Orientation impaired Psych: APPEARANCE: Yes disheveled ATTITUDE: Yes bizarre ACTIVITY/MOTOR BEHAVIOR: Yes disorganized behavior SPEECH: Yes incoherent (At times) and Yes rapid THOUGHT PROCESS: disorganized INSIGHT: Limited insight present (Psych) JUDGEMENT: Limited judgement present (Psych) Skin: NARRATIVE SKIN EXAM: Patient has what appears to be dirt or mud on bilateral upper extremities Course Vital Signs: Vital signs: Vital Signs Temperature 98.1 F 05/25/22 14:02 Pulse Rate 77 05/25/22 14:02 Respiratory Rate 16 05/25/22 14:02 Blood Pressure 129/87 05/25/22 14:02 Pulse Oximetry 100 05/25/22 14:02 Oxygen Delivery Me thod 05/23/22 20:04 [facility] - Psych Medical Decision Making 36-year-old gentleman presenting with worsening depression. However, after a short period of time the patient exhibits evidence of delusions and paranoia as well as psychosis. Exam as above. Labs with no significant hematologic or metabolic abnormalities, similar to prior. Toxic ingestions are negative and drug screen is pending. Given clinical exam and provided history there is no indication for imaging. Most likely etiology of patient's symptoms is underlying psychiatric disorder and noncompliance with medications with possible exacerbating substance abuse though urine drug screen pending. Patient requires inpatient management of psychiatric symptoms. Based on ED evaluation at this point there is no obvious condition that would preclude the patient from inpatient management psychiatric concerns/symptoms. Discussed with psychiatry service who was agreeable to admit patient. Medical Records I reviewed the patient's medical records. Lab Data I reviewed the patient's lab results. 05/22/22 22:15 05/22/22 22:15 Laboratory Results WBC 7.1 10^3/uL (4.0-10.0) 05/22/22 22:15 RBC 4.89 10^6/uL (4.1-5.3) 05/22/22 22:15 Hgb 15.5 g/dL (11.7-16.6) 05/22/22 22:15 Hct 45.1 % (42.0-52.0) 05/22/22 22:15 MCV 92.2 fl (80-94) 05/22/22 22:15 MCH 31.7 pg (28.0-34.0) 05/22/22 22:15 MCHC 34.4 g/dL (30.0-36.0) 05/22/22 22:15 RDW 11.5 % (12.1-15.1) L 05/22/22 22:15 Plt Count 288 10^3/cmm (130-400) 05/22/22 22:15 MPV 9.4 fL (7.4-10.4) 05/22/22 22:15 Neut % (Auto) 53.2 % 05/22/22 22:15 Lymph % (Auto) 37.6 % 05/22/22 22:15 [place] % (Auto) 7.4 % 05/22/22 22:15 Eos % (Auto) 1.1 % 05/22/22 22:15 Baso % (Auto) 0.6 % 05/22/22 22:15 Neut # (Auto) 3.75 10^3/uL (1.8-7.7) 05/22/22 22:15 Lymph # (Auto) 2.7 10^3/uL (0.8-4.8) 05/22/22 22:15 [place]illion # (Auto) 0.5 10^3/uL (0.2-0.9) 05/22/22 22:15 Eos # (Auto) 0.1 10^3/uL (0.0-0.8) 05/22/22 22:15 Baso # (Auto) 0.0 10^3/uL (0.0-0.1) 05/22/22 22:15 Nucleated RBC % (auto) 0 % 05/22/22 22:15 Nucleated RBCs # 0.0 /100WBC 05/22/22 22:15 Sodium 139 mmol/L (136-145) 05/22/22 22:15 Potassium 3.7 mmol/L (3.5-5.1) 05/22/22 22:15 Chloride 103 mmol/L (98-107) 05/22/22 22:15 Carbon Dioxide 26 mmol/L (22-29) 05/22/22 22:15 Anion Gap 13.7 (5-19) 05/22/22 22:15 BUN 16 mg/dL (6-20) 05/22/22 22:15 Creatinine 0.9 mg/dL (0.7-1.2) 05/22/22 22:15 GFR Calculation 95.0 mL/min (90-130) 05/22/22 22:15 Glucose 101 mg/dL (65-115) 05/22/22 22:15 Calculated Osmolality 289 mOsm/kg (285-295) 05/22/22 22:15 Calcium 9.2 mg/dL (8.5-10.5) 05/22/22 22:15 Total Bilirubin 0.4 mg/dL (0.15-1.2) 05/22/22 22:15 AST 24 U/L (0-40) 05/22/22 22:15 ALT 28 U/L (0-41) 05/22/22 22:15 Alkaline Phosphatase 103 U/L (40-130) 05/22/22 22:15 Total Protein 6.3 g/dL (6.6-8.7) L 05/22/22 22:15 Albumin 3.9 g/dL (3.5-5.2) 05/22/22 22:15 Globulin 2.4 g/dL (1.3-4.6) 05/22/22 22:15 TSH 2.70 uIU/mL (0.27-4.20) 05/22/22 22:15 Salicylates < 0.3 mg/dL (3-10) L 05/22/22 22:15 Urine Opiates Screen Negative ng/mL (Negative) 05/22/22 23:01 Acetaminophen < 5.0 ug/mL (10-30) L 05/22/22 22:15 Ur Barbiturates Screen Negative ng/mL (Negative) 05/22/22 23:01 Ur Phencyclidine Scrn Negative ng/mL (Negative) 05/22/22 23:01 Ur Amphetamines Screen Positive ng/mL (Negative) H 05/22/22 23:01 U Benzodiazepines Scrn Negative ng/mL (Negative) 05/22/22 23:01 Urine Cocaine Screen Negative ng/mL (Negative) 05/22/22 23:01 U Marijuana (THC) Screen Positive ng/mL (Negative) H 05/22/22 23:01 Ethyl Alcohol < 10 mg/dL (0-10) 05/22/22 22:15 Discharge Plan Discharge Patient Disposition: Admitted As Inpatient Admit Provider: Tomi Hoyos Clinical Impression: Acute psychosis, Depression, Non compliance w medication regimen Condition: Stable Discharge Diet: Regular Discharge Activity: Resume usual activity Coding Level of Care Code ED [employer] for Paul Small
[2022-05-22 22:28] LABS: Basophils % 0.6 %; Eosinophils # 0.1 10^3/uL (0.0-0.8); Eosinophils % 1.1 %; Hematocrit 45.1 % (42.0-52.0); Hemoglobin 15.5 g/dL (11.7-16.6); Lymphocytes # 2.7 10^3/uL (0.8-4.8); Lymphocytes % 37.6 %; Mean Corpuscular HGB Conc 34.4 g/dL (30.0-36.0); Mean Corpuscular Hemoglobin 31.7 pg (28.0-34.0); Mean Corpuscular Volume 92.2 fl (80-94); Mean Platelet Volume 9.4 fL (7.4-10.4); Monocytes # 0.5 10^3/uL (0.2-0.9); Monocytes % 7.4 %; Neutrophils # 3.75 10^3/uL (1.8-7.7); Neutrophils % 53.2 %; Nucleated Red Blood Cells % 0 %; Platelet Count 288 10^3/cmm (130-400); Red Blood Count 4.89 10^6/uL (4.1-5.3); Red Cell Distribution Width 11.5 % (12.1-15.1); White Blood Count 7.1 10^3/uL (4.0-10.0)
[2022-05-22 22:56] LABS: Alanine Aminotransferase 28 U/L (0-41); Albumin Level 3.9 g/dL (3.5-5.2); Alkaline Phosphatase 103 U/L (40-130); Anion Gap 13.7 (5-19); Aspartate Amino Transferase 24 U/L (0-40); Blood Urea Nitrogen 16 mg/dL (6-20); Calcium 9.2 mg/dL (8.5-10.5); Carbon Dioxide 26 mmol/L (22-29); Chloride 103 mmol/L (98-107); Globulin 2.4 g/dL (1.3-4.6); Glucose 101 mg/dL (65-115); Osmolality Calculated 289 mOsm/kg (285-295); Potassium 3.7 mmol/L (3.5-5.1); Sodium 139 mmol/L (136-145); Total Bilirubin 0.4 mg/dL (0.15-1.2); Total Protein 6.3 g/dL (6.6-8.7)
[2022-05-22 23:02] LABS: Acetaminophen < 5.0 ug/mL (10-30); Alcohol Level < 10 mg/dL (0-10); Salicylate < 0.3 mg/dL (3-10)
[2022-05-22 23:27] VITALS: BP 148/94; PULSE 82; RESP 17; TEMP 36.6; O2SAT 98
[2022-05-22 23:34] LABS: Amphetamines Screen Urine Positive (Negative); Barbiturates Screen Urine Negative (Negative); Benzodiazepines Screen Urine Negative (Negative); Cocaine Screen Urine Negative (Negative); Opiate Screen Urine Negative (Negative); PCP Screen Urine Negative (Negative); THC Screen Urine Positive (Negative)
[2022-05-23 06:00] VITALS: RESP 18
--- NOTE | 2022-05-23 09:37 | PC.OT ---
OT Eval Attempted - Patient found in bed in room at time of evaluation, patient refusal to participate in evaluation at this time. Will attempt again later.
[2022-05-23] MEDS: haloperidol 5 mg Tablet PO (09:58)
--- NOTE | 2022-05-23 09:58 | PC.NURSE ---
PRN Expansion Envelope Maker Hand Patient screaming in hallway, I missed my Identify bus! Call the [facility] LICENSED MENTAL HEALTH COUNSELOR!! Attempted to redirect patient but he appeared to be having auditory and visual hallucinations. He began gesturing towards the air and yelled, GENOCIDE! Patient administered haldol 5mg PO.
--- NOTE | 2022-05-23 13:58 | P.NPUHP_ITS ---
Providers/Chief Complaint Admitting Physician: Tomi Hoyos MD Primary Care Provider: Dario Turcios MD Chief Complaint: DEPRESSION/AMS HPI NPU History of Present Illness Jeremiah Power is a 36 year old male presenting to the emergency department with the following report: Chief Complaint: Psychiatric Symptoms Stated Complaint: DEPRESSION/AMS Time Seen by Provider: 05/22/22 22:04 History of Present Illness: Mr. Power is a 36-year-old gentleman with history of polysubstance abuse and psychiatric disorder presented to the emergency department for psychiatric evaluation. He notes increasing depression in the context of social circumstances. He has not been taking medication and is increasingly hopeless. The patient also has a mumbling rant about the bitches and continues to mumble when I attempted to clarify. Overall course of symptoms has worsened. Intensity is moderate to severe. No other specific changes in health, exacerbating, or alleviating factors identified. Onset (ago): week(s) Duration: getting worse History of same: Yes Context: significant life stressor Associated psychiatric symptoms: depression and racing thoughts. He was admitted to the neuropsychiatric unit for definitive treatment of those issues. He presented to the unit with reports of odd linguistics as if he were speaking in tongues. By the time I saw him he was very irritable not interested in answering questions mostly moaning and grunting responses more or less yes or no answers. And being clearly did not want to start medication. He did ackno wledge that he has been using meth and so we discussed the fact that his presentation is suggestive of coming down off of methamphetamine which is why he is mostly lying around. He did not deny that. Reports he was doing fine but he started using too much methamphetamine and started having crazy thoughts and so he came here. Due to his lack of ability as a historian and excerpt of his last discharge summary is included below for context. Clearly he could use some medication for psychosis but he is refusing. Per his 01/07/2021 [facility] inpatient psychiatric discharge summary: STRESSED Brief History: History of Present Illness Jeremiah Power is a 35 year old male with a long history of alcohol dependence, methamphetamine use, marijuana use, depression, schizophrenia and borderline intellectual functioning, who presents to the ED with suicidal ideation without a plan. The ED note states: HPI Narrative: 35-year-old male patient comes in today slightly agitated. [place] a way home for a couple of days. Patient states he had not eaten or drinking anything but patient appears well and clean. Patient states he is suicidal but does not have a specific plan. Patient does have a history of alcohol dependence with other substance abuse but has not drank or used today. Patient does have a history of suicidal ideation and hospitalization with last admission being in June. Patient was seen in October in the emergency room for an evaluation but was discharged for emergency department. Patient denies any routine medications at this time. Patient denies any hallucinations. The patient states that, as stated above, he became homeless. He had been parking his camper at a family member's house, but was told he had to leave for a few days. The [place], promising to return with some food. But they did not return. So, he was both out of food, and felt abandoned. Another concern family member called the police [place], and he ask the officer to bring him to the [facility] ED. He tells me, now I am homeless again, stressed out, and wants to . He has no specific plan to commit suicide. He does feel helpless, hopeless and worthless. The patient has a past history of schizophrenia, and tells me that he got kicked out of the group home permanently when he stripped naked to walk to the river. When I ask about this, he said Deon told me to do it. Upon further exploration, he was hearing the voice of the biblical prophet Deon, who in a famous Bible passage, told someone else to strip naked and bathe in a river. The patient was feeling this was happening to him. The patient says he is still hearing voices. In addition, the patient has a past history of borderline intellectual function. 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 The patient is on probation and needs to finish community service, but cannot figure out how to do it. The patient denies recent alcohol or drug use. He says he smokes 2 packs of cigarettes per day. Urine drug screen showed the presence of cannabinoids, but was otherwise negative for all substances tested. Blood alcohol level was negative. Psychiatric history: As above. Substance use history: As above. Family history: Patient denies mental health or addiction issues on either side of the family and denies suicide attempts or completions in the family. Psychosocial history: The patient says he was born and raised in [place]. Legal history: Currently on probation and needs to do community service Medical history: The patient says he has had 2 hernia surgeries and has a hernia currently which does not cause him problems. Denies any other significant medical history. SIDNEY Cates's note from 12/17/20 states: [facility] was notified that Client arrived at [facility]. [facility] brought Client to the consultation room, as well as met [facility]'s specialty food products supervisor. [facility] observed Client to have kym shorts that appeared to be have a variety of stains, a shirt that had holes throughout, shoes that barley held the soles, as well as perspiration on Client's forehead. [facility]'s specialty food products supervisor attempted to address a concern regarding Client's behaviors with his treatment team. Client appeared to be confused then became angry, and short with the specialty food products supervisor. Client stated I'll just leave. The specialty food products supervisor attempted to explain that [facility] wanted to provide services to him, but wanted to address this concern to prevent further instances from occurring. Client explained that he didn't understand the conversation, then stormed out of the consultation room into the waiting room. After a short while, [facility] observed that Client began knocking on the window to return to the consultation room. [facility] and her specialty food products supervisor met with Client again. The Rehabilitation Consultant asked Client how [facility] can help him. Client continued to express his anger and frustrations as he explained that he is homeless, tired, and hungry. [facility] and her Rehabilitation Consultant utilized reflective listening as Client explained his current living situation meaning that he has to remove his camper on 12/20/2020. [facility] asked Client if he had a plan to move his camper to a relatives or a park. Client answered in an agitated voice, I have no place to go. I don't know where to begin when trying to work things out. [facility] Rehabilitation Consultant encouraged Client to research the local [employer] in the area. Client complied with this request and learned that there are no current availabilities. Client is unsure what he will do, and isn't sure how [facility] can assist him. [facility] explained that he is on the waiting list as he applied for HUD through [employer]. Client explained that he doesn't have any food, but that he had eaten the day before. [facility]'s Rehabilitation Consultant offered to get Client something to eat. [facility] confirmed with Client that his sister who is helping Client complete the necessary paperwork for benefits was still assisting Client with this process. Client answered yes. I just learned that I have Medicaid now. Lastly, CSS, Client, and CSS Rehabilitation Consultant discussed another stressor Client identified which is his community service hours for his probation. Client explained that he was frustrated that he couldn't figure the hours he has completed thus far. [facility]'s Rehabilitation Consultant asked Client if he had the paper that held the hours he's completed this far, Client answered yes. and provided the document. It was determined that Client has completed 31 hours of community service at this time. Client became upset and stated I'm supposed to have this completed by December. I'll just commit another felony and go back to [facility]. Then I will have a place to st ay and food. [facility]'s Rehabilitation Consultant explained again to Client that [facility] wanted to assist Client with finding resources that improved Client's functioning. [facility]'s Rehabilitation Consultant asked Client if he would be willing to work with a male dumpcart driver. Client answered absolutely not. I will not work or talk with a male. [facility]'s Rehabilitation Consultant explained the importance of exhibiting appropriate behaviors and asked if Client was willing to reschedule with [facility] for the following week. Client answered I guess. [facility] and Client discussed their availability and scheduled an appointment for the following week. [facility] asked Client if he had any questions at this time. Client answered no. [facility] thanked Client for his time and walked Client back to the waiting room. [facility] documented encounter in [facility]. Action Plan: Client will attend scheduled appointments and utilize [employer] as needed. [facility] Return Plan: Follow up with Client the following week. Client Response: I'm supposed to have this completed by December. I'll just commit another felony and go back to [facility]. Then I will have a place to stay and food. Hospital Course Hospital Course He slowly acclimated to the individual, group and milieu therapies provided. Home meds were continued and Vistaril was added as needed. He showed modest improvement but was able to contract for safety prior to discharge. During the hospitalization, patient had routine laboratory studies which were within normal limits except for few outliers. Additionally there was a general medical evaluation which was also within normal limits and revealed no new acute processes. Discharge Summary: At the time of discharge, lethality was denied and psychosis was resolving. Mood and anxiety were well managed. Patient endorsed a plan to avoid all drugs of abuse and follow-up with the aftercare recommendations of the treatment team. Patient was evaluated and deemed to be absent credible lethality, and had achieved the maximum benefit from an inpatient hospitalization, so was discharged. Meds NPU Home Medications Medication Instructions Recorded Confirmed Last Taken Type No Known Home Medications 03/19/22 05/24/22 Unknown History Allergies Allergy/AdvReac Type Severity Reaction Status Date / Time Penicillins Allergy Unknown Verified 03/19/22 13:10 PFSH NPU PFSH: Medical History Acute psychosis Alcohol dependence, in remission Alcohol dependence, uncomplicated Borderline intellectual functioning Cannabis dependence, in remission Cannabis dependence, uncomplicated Cholelithiasis Cigarette nicotine dependence without complication Depressive disorder Major depressive disorder, recurrent, severe with psychotic symptoms Methamphetamine dependence Other stimulant dependence, in remission Polysubstance abuse Psychiatric care Surgical History History of umbilical hernia repair Hx laparoscopic cholecystectomy Family History Family/Other Cancer uncle--lung uncle--kidney/liver Diabetes Stroke Grandmother Dementia Other CAD (coronary artery disease) Hyperlipidemia Hypertension Lung disease Psychiatric illness Denies family history of Clotting disorder Chronic kidney disease (CKD) Anesthesia complication Bleeding disorder Social History Smoking and tobacco status: current every day smoker cigarettes Packs smoked per day: 1 [ Other cigarette details: 1PPD, 25PY] Alcohol intake: current Alcohol intake frequency: few times a month Lives independently: Yes Marital status: Single Number of children: 0 Current occupational status: unemployed Current gender identity: Male Mental Status Exam MSE Comments: This is a well-nourished, well-developed white male in hospital scrubs with limited grooming and eye contact. No abnormal movements except for significant psychomotor retardation. Cooperative with exam in moderate distress. Speech was limited and decreased rate and volume. Mood described as tired, affect congruent. Thought process linear. Thought content: Patient denied suicidal or homicidal ideation. There are no delusions reported or noted, he did not respond to questions about hallucinations and was not alert enough to identify whether he was attending to internal stimuli during the interview. Attention, concentration and memory appeared impaired but none were formally tested. He is alert and oriented x3. Insight, judgment and impulse control are impaired. Vitals/I&O/Wt Last Vital Signs Temp 97.8 F 05/22/22 23:27 Pulse 82 05/22/22 23:27 Resp 18 05/23/22 06:00 BP 148/94 05/22/22 23:27 Pulse Ox 98 05/22/22 23:27 O2 Del Method 05/22/22 23:27 Weight last 48 hrs Weight 77.111 kg Data NPU 05/22/22 22:15 05/22/22 22:15 A&P Assessment and plan (1) Acute psychosis: (2) Depression: (3) Non compliance w medication regimen: (4) Cannabis dependence, uncomplicated: (5) Borderline intellectual functioning: (6) Schizophrenia: (7) Methamphetamine use disorder, severe: Plan This is a 36-year-old white male with a long history of schizophrenia/psychosis, addiction depression and anxiety who presents once again with active addiction, irritability, and reporting no interest in starting medication. 1.? Continue current medication.? Restart previous medication. 2.? Continue every 15 minute checks for safety. 3.? Encourage individual, group and milieu therapies. 4.? Encourage sober living treatment after discharge at the highest level of care to which he is willing to commit. Involuntary Hold Information 96 Hour Hold: 96 Hour Involuntary Admission: No Attestations NPU Medical Necessity Statement*: Inpatient hospitalization is medically necessary and the clinically appropriate intervention at this time. We will monitor medications and make changes as indicated. Patient will be in the hospital for over two midnights. Likely length of stay 3 to 5 days. Coding Level of Care Code Acute Code for [facility] Fwd Diagnoses Acute psychosis F23 Depression F32.A Non compliance w medication regimen Z91.14 Cannabis dependence, uncomplicated F12.20 Borderline intellectual functioning R41.83 Schizophrenia F20.9 Methamphetamine use disorder, severe F15.20
[2022-05-23 14:00] VITALS: BP 121/80; PULSE 86; RESP 18; TEMP 36.8; O2SAT 100
[2022-05-23 20:04] VITALS: BP 121/81; PULSE 86; RESP 22; TEMP 36.9; O2SAT 99
[2022-05-24 06:00] VITALS: RESP 18
--- NOTE | 2022-05-24 11:15 | P.NPUPN_ITS ---
Subjective NPU Subjective: Patient presented today essentially unchanged. He continues to lay around and does get up for meals but is essentially not engaged on the unit. He reported a possibility of wanting to leave but did not bring that up again. He reports that if he were to leave he would go back to his camper and that he came here because he is starting getting too high and needed to stop and did not feel like he could do it alone. He continued to deny an interest in taking medication and reports that that will not change and he is never wanting to take any medication. Mental Status Exam MSE Comments: This is a well-nourished, well-developed white male in hospital scrubs with limited grooming and eye contact. No abnormal movements except for significant psychomotor retardation. Cooperative with exam in moderate distress. Speech was limited and decreased rate and volume. Mood described as tired, affect congruent. Thought process linear. Thought content: Patient denied suicidal or homicidal ideation. There are no delusions reported or noted, he did not respond to questions about hallucinations and was not alert enough to identify whether he was attending to internal stimuli during the interview. Attention, concentration and memory appeared impaired but none were formally tested. He is alert and oriented x3. Insight, judgment and impulse control are impaired. Vitals/I&O/Wt Last Vital Signs Temp 98.5 F 05/23/22 20:04 Pulse 86 05/23/22 20:04 Resp 18 05/24/22 06:00 BP 121/81 05/23/22 20:04 Pulse Ox 99 05/23/22 20:04 O2 Del Method 05/23/22 20:04 Data NPU 05/22/22 22:15 05/22/22 22:15 A&P Assessment and plan (1) Acute psychosis: (2) Depression: (3) Non compliance w medication regimen: (4) Cannabis dependence, uncomplicated: (5) Borderline intellectual functioning: (6) Schizophrenia: (7) Methamphetamine use disorder, severe: Plan This is a 36-year-old white male with a long history of schizophrenia/psychosis, addiction depression and anxiety who presents once again with active addiction, irritability, and reporting no interest in starting medication. 1.? Continues to refuse medication. 2.? Continue every 15 minute checks for safety. 3.? Encourage individual, group and milieu therapies. 4.? Encourage sober living treatment after discharge at the highest level of care to which he is willing to commit. Involuntary Hold Information 96 Hour Hold: 96 Hour Involuntary Admission: No Attestations NPU Medical Necessity Statement*: Inpatient hospitalization is medically necessary and the clinically appropriate intervention at this time. We will monitor medications and make changes as indicated. Likely length of stay 2-4 days. We will have to consider whether allowing him to leave and not putting him on a 96- hour hold is reasonable. Coding Level of Care Code Acute Code for [facility] Fwd Diagnoses Acute psychosis F23 Depression F32.A Non compliance w medication regimen Z91.14 Cannabis dependence, uncomplicated F12.20 Borderline intellectual functioning R41.83 Schizophrenia F20.9 Methamphetamine use disorder, severe F15.20
[2022-05-24] MEDS: haloperidol 5 mg Tablet PO (11:41)
[2022-05-24 14:00] VITALS: BP 140/70; PULSE 91; RESP 20; TEMP 36.5; O2SAT 98
[2022-05-24] MEDS: benztropine 1 mg Tablet PO (17:31)
[2022-05-24 20:04] VITALS: BP 106/69; PULSE 76; RESP 16; TEMP 36.8; O2SAT 99
[2022-05-25 06:00] VITALS: BP 129/87; PULSE 77; RESP 16; TEMP 36.7; O2SAT 100
--- NOTE | 2022-05-25 09:50 | PC.NURSE ---
PT REFUSES ASSESSMENT, PT STATES I DONT NEED TO BE HERE ANYMORE I TOLD THE [facility] DOCTOR THAT, I JUST NEEDED TO COME HERE AND SOBER UP PT UPSET HE SLEPT THRU BREAKFAST, FOOD AND DRINK GIVEN TO PT, PT UP IN DAYROOM EATING REFUSES THE NEED FOR MEDICATIONS FOR INCREASED ANXIETY
--- NOTE | 2022-05-25 13:25 | W.PM.NPUDCS ---
Diagnoses at Discharge Discharge Diagnosis (1) Acute psychosis: Status: Acute (2) Depression: Status: Acute (3) Non compliance w medication regimen: Status: Acute (4) Cannabis dependence, uncomplicated: Status: Acute (5) Borderline intellectual functioning: Status: Acute (6) Schizophrenia: Status: Acute (7) Methamphetamine use disorder, severe: Status: Acute Reason for Visit Reason for Visit: DEPRESSION/AMS Brief History: History of Present Illness Jeremiah Power is a 36 year old male presenting to the emergency department with the following report: Chief Complaint: Psychiatric Symptoms Stated Complaint: DEPRESSION/AMS Time Seen by Provider: 05/22/22 22:04 History of Present Illness: Mr. Power is a 36-year-old gentleman with history of polysubstance abuse and psychiatric disorder presented to the emergency department for psychiatric evaluation. He notes increasing depression in the context of social circumstances. He has not been taking medication and is increasingly hopeless. The patient also has a mumbling rant about the bitches and continues to mumble when I attempted to clarify. Overall course of symptoms has worsened. Intensity is moderate to severe. No other specific changes in health, exacerbating, or alleviating factors identified. Onset (ago): week(s) Duration: getting worse History of same: Yes Context: significant life stressor Associated psychiatric symptoms: depression and racing thoughts. He was admitted to the neuropsychiatric unit for definitive treatment of those issues. He presented to the unit with reports of odd linguistics as if he were speaking in tongues. By the time I saw him he was very irritable not interested in answering questions mostly moaning and grunting responses more or less yes or no answers. And being clearly did not want to start medication. He did acknowledge that he has been using meth and so we discussed the fact that his presentation is suggestive of coming down off of methamphetamine which is why he is mostly lying around. He did not deny that. Reports he was doing fine but he started using too much methamphetamine and started having crazy thoughts and so he came here. Due to his lack of ability as a historian and excerpt of his last discharge summary is included below for context. Clearly he could use some medication for psychosis but he is refusing. Per his 01/07/2021 [facility] inpatient psychiatric discharge summary: STRESSED Brief History: History of Present Illness Jeremiah Power is a 35 year old male with a long history of alcohol dependence, methamphetamine use, marijuana use, depression, schizophrenia and borderline intellectual functioning, who presents to the ED with suicidal ideation without a plan. The ED note states: HPI Narrative: 35-year-old male patient comes in today slightly agitated. [place] a way home for a couple of days. Patient states he had not eaten or drinking anything but patient appears well and clean. Patient states he is suicidal but does not have a specific plan. Patient does have a history of alcohol dependence with other substance abuse but has not drank or used today. Patient does have a history of suicidal ideation and hospitalization with last admission being in June. Patient was seen in October in the emergency room for an evaluation but was discharged for emergency department. Patient denies any routine medications at this time. Patient denies any hallucinations. The patient states that, as stated above, he became homeless. He had been parking his camper at a family member's house, but was told he had to leave for a few days. [place], promising to return with some food. But they did not return. So, he was both out of food, and felt abandoned. Another concern family member called the police [place], and he ask the officer to bring him to the [facility] ED. He tells me, now I am homeless again, stressed out, and wants to . He has no specific plan to commit suicide. He does feel helpless, hopeless and worthless. The patient has a past history of schizophrenia, and tells me that he got kicked out of the halfway permanently when he stripped naked to walk to the river. When I ask about this, he said Deon told me to do it. Upon further exploration, he was hearing the voice of the biblical prophet Deon, who in a famous Bible passage, told someone else to strip naked and bathe in a river. The patient was feeling this was happening to him. The patient says he is still hearing voices. In addition, the patient has a past history of borderline intellectual function. 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 The patient is on probation and needs to finish community service, but cannot figure out how to do it. The patient denies recent alcohol or drug use. He says he smokes 2 packs of cigarettes per day. Urine drug screen showed the presence of cannabinoids, but was otherwise negative for all substances tested. Blood alcohol level was negative. Psychiatric history: As above. Substance use history: As above. Family history: Patient denies mental health or addiction issues on either side of the family and denies suicide attempts or completions in the family. Psychosocial history: The patient says he was born and raised in [place]. Legal history: Currently on probation and needs to do community service Medical history: The patient says he has had 2 hernia surgeries and has a hernia currently which does not cause him problems. Denies any other significant medical history. SIDNEY Cates's note from 12/17/20 states: [facility] was notified that Client arrived at [facility]. [facility] brought Client to the consultation room, as well as met [facility]'s slot shift supervisor. [facility] observed Client to have kym shorts that appeared to be have a variety of stains, a shirt that had holes throughout, shoes that barley held the soles, as well as perspiration on Client's forehead. [facility]'s slot shift supervisor attempted to address a concern regarding Client's behaviors with his treatment team. Client appeared to be confused then became angry, and short with the slot shift supervisor. Client stated I'll just leave. The slot shift supervisor attempted to explain that [facility] wanted to provide services to him, but wanted to address this concern to prevent further instances from occurring. Client explained that he didn't understand the conversation, then stormed out of the consultation room into the waiting room. After a short while, [facility] observed that Client began knocking on the window to return to the consultation room. SIDNEY and her slot shift supervisor met with Client again. The Respiratory Coordinator asked Client how [facility] can help him. Client continued to express his anger and frustrations as he explained that he is homeless, tired, and hungry. SIDNEY and her Respiratory Coordinator utilized reflective listening as Client explained his current living situation meaning that he has to remove his camper on 12/20/2020. [facility] asked Client if he had a plan to move his camper to a relatives or a park. Client answered in an agitated voice, I have no place to go. I don't know where to begin when trying to work things out. CSS Respiratory Coordinator encouraged Client to research the local [employer] in the area. Client complied with this request and learned that there are no current availabilities. Client is unsure what he will do, and isn't sure how [facility] can assist him. [facility] explained that he is on the waiting list as he applied for HUD through [employer]. Client explained that he doesn't have any food, but that he had eaten the day before. [facility]'s Respiratory Coordinator offered to get Client something to eat. [facility] confirmed with Client that his sister who is helping Client complete the necessary paperwork for benefits was still assisting Client with this process. Client answered yes. I just learned that I have Medicaid now. Lastly, CSS, Client, and CSS Respiratory Coordinator discussed another stressor Client identified which is his community service hours for his probation. Client explained that he was frustrated that he couldn't figure the hours he has completed thus far. [facility]'s Respiratory Coordinator asked Client if he had the paper that held the hours he's completed this far, Client answered yes. and provided the document. It was determined that Client has completed 31 hours of community service at this time. Client became upset and stated I'm supposed to have this completed by December. I'll just commit another felony and go back to shelter. Then I will have a place to stay and food. [facility]'s Respiratory Coordinator explained again to Client that [facility] wanted to assist Client with finding resources that improved Client's functioning. [facility]'s Respiratory Coordinator asked Client if he would be willing to work with a male courtesy booth cashier. Client answered absolutely not. I will not work or talk with a male. [facility]'s Respiratory Coordinator explained the importance of exhibiting appropriate behaviors and asked if Client was willing to reschedule with [facility] for the following week. Client answered I guess. [facility] and Client discussed their availability and scheduled an appointment for the following week. [facility] asked Client if he had any questions at this time. Client answered no. [facility] thanked Client for his time and walked Client back to the waiting room. [facility] documented encounter in Expanse. Action Plan: Client will attend scheduled appointments and utilize [facility] as needed. [facility] Return Plan: Follow up with Client the following week. Client Response: I'm supposed to have this completed by December. I'll just commit another felony and go back to shelter. Then I will have a place to stay and food. Hospital Course Hospital Course He slowly acclimated to the individual, group and milieu therapies provided. Home meds were continued and Vistaril was added as needed. He showed modest improvement but was able to contract for safety prior to discharge. During the hospitalization, patient had routine laboratory studies which were within normal limits except for few outliers. Additionally there was a general medical evaluation which was also within normal limits and revealed no new acute processes. Discharge Summary: At the time of discharge, lethality was denied and psychosis was resolving. Mood and anxiety were well managed. Patient endorsed a plan to avoid all drugs of abuse and follow-up with the aftercare recommendations of the treatment team. Patient was evaluated and deemed to be absent credible lethality, and had achieved the maximum benefit from an inpatient hospitalization, so was discharged. Hospital Course Hospital Course He slowly acclimated to the individual, group and milieu therapies provided. He presents like previous hospitalizations. Not wanting medications and really not wanting any interventions. He clearly has psychosis but manages in the fringes. We continue to offer him the opportunity to try medication or work with the social workers but after a couple days he decided to disengage from treatment and request discharge. He showed modest improvement but was able to contract for safety, outside of the hospital prior to discharge. During the hospitalization, patient had routine laboratory studies which were within normal limits except for few outliers. Additionally there was a general medical evaluation which was also within normal limits and revealed no new acute processes. Discharge Summary: At the time of discharge, lethality was denied and psychosis was limited. Mood and anxiety were well managed. Patient endorsed a plan to avoid all drugs of abuse and follow-up with the aftercare recommendations of the treatment team. Patient was evaluated and deemed to be absent credible lethality, and had achieved the maximum benefit from an inpatient hospitalization, so was discharged. Involuntary Hold Information 96 Hour Hold: 96 Hour Involuntary Admission: No Mental Status Exam MSE Comments: This is a well-nourished, well-developed white male in hospital scrubs with limited grooming and eye contact. No abnormal movements except for significant psychomotor retardation. Cooperative with exam in moderate distress. Speech was limited and decreased rate and volume. Mood described as tired, affect congruent. Thought process linear. Thought content: Patient denied suicidal or homicidal ideation. There are no delusions reported or noted, he did not respond to questions about hallucinations and was not alert enough to identify whether he was attending to internal stimuli during the interview. Attention, concentration and memory appeared impaired but none were formally tested. He is alert and oriented x3. Insight and judgment are limited and impulse control was limited versus impaired. Discharge Data Studies Completed and Pending: Laboratory Results WBC 7.1 10^3/uL (4.0- 10.0) 05/22/22 22:15 RBC 4.89 10^6/uL (4.1 -5.3) 05/22/22 22:15 Hgb 15.5 g/dL (11.7-1 6.6) 05/22/22 22:15 Hct 45.1 % (42.0-52.0 ) 05/22/22 22:15 MCV 92.2 fl (80-94) 05/22/22 22:15 MCH 31.7 pg (28.0-34. 0) 05/22/22 22:15 MCHC 34.4 g/dL (30.0-3 6.0) 05/22/22 22:15 RDW 11.5 % (12.1-15.1 ) L 05/22/22 22:15 Plt Count 288 10^3/cmm (130 -400) 05/22/22 22:15 MPV 9.4 fL (7.4-10.4) 05/22/22 22:15 Neut % (Auto) 53.2 % 05/22/22 22:15 Lymph % (Auto) 37.6 % 05/22/22 22:15 [place] % (Auto) 7.4 % 05/22/22 22:15 Eos % (Auto) 1.1 % 05/22/22 22:15 Baso % (Auto) 0.6 % 05/22/22 22:15 Neut # (Auto) 3.75 10^3/uL (1.8 -7.7) 05/22/22 22:15 Lymph # (Auto) 2.7 10^3/uL (0.8- 4.8) 05/22/22 22:15 [place] # (Auto) 0.5 10^3/uL (0.2- 0.9) 05/22/22 22:15 Eos # (Auto) 0.1 10^3/uL (0.0- 0.8) 05/22/22 22:15 Baso # (Auto) 0.0 10^3/uL (0.0- 0.1) 05/22/22 22:15 Nucleated RBC % (a uto) 0 % 05/22/22 22:15 Nucleated RBCs # 0.0 /100WBC 05/22/22 22:15 Sodium 139 mmol/L (136-1 45) 05/22/22 22:15 Potassium 3.7 mmol/L (3.5-5 .1) 05/22/22 22:15 Chloride 103 mmol/L (98-10 7) 05/22/22 22:15 Carbon Dioxide 26 mmol/L (22-29) 05/22/22 22:15 Anion Gap 13.7 (5-19) 05/22/22 22:15 BUN 16 mg/dL (6-20) 05/22/22 22:15 Creatinine 0.9 mg/dL (0.7-1. 2) 05/22/22 22:15 GFR Calculation 95.0 mL/min (90-1 30) 05/22/22 22:15 Glucose 101 mg/dL (65-115 ) 05/22/22 22:15 Calculated Osmolal ity 289 mOsm/kg (285- 295) 05/22/22 22:15 Calcium 9.2 mg/dL (8.5-10 .5) 05/22/22 22:15 Total Bilirubin 0.4 mg/dL (0.15-1 .2) 05/22/22 22:15 AST 24 U/L (0-40) 05/22/22 22:15 ALT 28 U/L (0-41) 05/22/22 22:15 Alkaline Phosphata se 103 U/L (40-130) 05/22/22 22:15 Total Protein 6.3 g/dL (6.6-8.7 ) L 05/22/22 22:15 Albumin 3.9 g/dL (3.5-5.2 ) 05/22/22 22:15 Globulin 2.4 g/dL (1.3-4.6 ) 05/22/22 22:15 TSH 2.70 uIU/mL (0.27 -4.20) 05/22/22 22:15 Salicylates < 0.3 mg/dL (3-10 ) L 05/22/22 22:15 Urine Opiates Scre en Negative ng/mL (N egative) 05/22/22 23:01 Acetaminophen < 5.0 ug/mL (10-3 0) L 05/22/22 22:15 Ur Barbiturates Sc reen Negative ng/mL (N egative) 05/22/22 23:01 Ur Phencyclidine S crn Negative ng/mL (N egative) 05/22/22 23:01 Ur Amphetamines Sc reen Positive ng/mL (N egative) H 05/22/22 23:01 U Benzodiazepines Scrn Negative ng/mL (N egative) 05/22/22 23:01 Urine Cocaine Scre en Negative ng/mL (N egative) 05/22/22 23:01 U Marijuana (THC) Screen Positive ng/mL (N egative) H 05/22/22 23:01 Ethyl Alcohol < 10 mg/dL (0-10) 05/22/22 22:15 Vitals: Last Vital Signs Temp 98.1 F 05/25/22 06:00 Pulse 77 05/25/22 06:00 Resp 16 05/25/22 06:00 BP 129/87 05/25/22 06:00 Pulse Ox 100 05/25/22 06:00 O2 Del Method 05/23/22 20:04 Discharge Plan Discharge Patient Disposition: Home Condition: Stable Prescriptions: No Action No Known Home Medications Discharge Orders: Discharge Order (Routine); Ordered 05/25/22 Ordered By: Tomi Hoyos Referrals: Dario Turcios MD [Primary Care Provider] - Discharge Diet: Regular Discharge Activity: Resume usual activity Patient Instructions: Depression (DC), Methamphetamine Use Disorder (DC), Psychotic Disorder (DC), Opioid Safety Discharge Attestations NPU Time Spent in Discharge Care*: less than 30 min Specific Discharge Activities: Specific discharge activities: educating patient, discussing with window caser/social workers/dc planners, documenting/other paperwork and evaluating patient/reviewing data Status at Discharge: Cognitive status at discharge: cognitively intact, Behavioral status at discharge: can be uncooperative, Coding Level of Care Code Acute Chg FW DC note Diagnoses Acute psychosis F23 Depression F32.A Non compliance w medication regimen Z91.14 Cannabis dependence, uncomplicated F12.20 Borderline intellectual functioning R41.83 Schizophrenia F20.9 Methamphetamine use disorder, severe F15.20
[2022-05-25 14:02] VITALS: BP 129/87; PULSE 77; RESP 16; TEMP 36.7; O2SAT 100
== END 2022-05-25 14:10 | disposition home or self-care (01) | DRG 885 ==
LOC: ER 22:26 → NP 05-23 06:48
PROVIDERS: Admitting Provider Psychiatry & Neurology Psychiatry; Emergency Provider Emergency Medicine; PCP Family Medicine; Visit Provider Psychiatry & Neurology Psychiatry
DX: F20.9 Schizophrenia, unspecified (principal); F15.20 Other stimulant dependence, uncomplicated; F32.A Depression, unspecified; T50.906A Underdosing of unspecified drugs, medicaments and biological substances, initial encounter; F17.210 Nicotine dependence, cigarettes, uncomplicated; F12.20 Cannabis dependence, uncomplicated
CPT/HCPCS: 80053; 80306; 80307; 84443; 85025; 99238; 99285